=== PATIENT | male | born 2000 | race Caucasian/White ===

== ENCOUNTER → 2022-04-22 13:32 | Outpatient (BNVA) | payer BC, SELFPAY | PROVIDERS: PCP Psychiatry & Neurology Neurology; Visit Provider Psychiatry & Neurology Neurology | DX: Z13.89 Encounter for screening for other disorder (principal) ==

== ENCOUNTER 2022-05-06 17:15 | Outpatient (REF) | payer OTHER, BC, SELFPAY ==
--- NOTE | ~2022-05-06 | MR_ITS ---
EXAMINATION: MR CERVICAL SPINE WITHOUT CONTRAST CLINICAL INFORMATION: Neck pain. Bilateral wrist pain. COMPARISON: None. TECHNIQUE: MRI of the cervical spine was obtained using routine sequences without contrast. FINDINGS: There is a focal small syrinx within the cord centered at the C6-C7 level which measures up to 3 mm in transverse dimension and 10 mm craniocaudal. No additional cord signal abnormality is seen. There are is no central canal stenosis or significant foraminal narrowing. No disc protrusions visible. Very mild uncovertebral joint spurring doesn't at various levels. There is a mild rightward curvature of the cervical spine. The craniovertebral junction and imaged portions of the brain parenchyma appear normal. The vertebral artery flow-voids are normally visualized. The paraspinal soft tissues are normal. The imaged lung apices are grossly clear. MR/MR cervical spine wo con IMPRESSION: Small focal syrinx within the cord centered at the C6-C7 level. No significant disc pathology, central canal stenosis, or foraminal narrowing. Mild uncovertebral joint spurring at various levels. Mild rightward curvature of the cervical spine.
== END 2022-05-06 17:16 | disposition home or self-care (01) ==
LOC: HO.MRI 17:15
PROVIDERS: Visit Provider Internal Medicine Hypertension Specialist
DX: M54.2 Cervicalgia (principal); R20.0 Anesthesia of skin; R20.2 Paresthesia of skin; R29.2 Abnormal reflex
CPT/HCPCS: 72141

== ENCOUNTER → 2022-06-05 15:35 | Outpatient (BNVA) | payer BC, OTHER, SELFPAY | PROVIDERS: PCP Psychiatry & Neurology Neurology; Visit Provider Psychiatry & Neurology Neurology | DX: G43.119 Migraine with aura, intractable, without status migrainosus (principal); G43.109 Migraine with aura, not intractable, without status migrainosus; M54.2 Cervicalgia; R29.2 Abnormal reflex | CPT/HCPCS: 64615; J0585 ==

== ENCOUNTER → 2022-09-09 15:52 | Outpatient (BNVA) | payer OTHER, BC, SELFPAY | PROVIDERS: PCP Pediatrics; Visit Provider Psychiatry & Neurology Neurology | DX: G43.709 Chronic migraine without aura, not intractable, without status migrainosus (principal) | CPT/HCPCS: 64615; J0585 ==

== ENCOUNTER 2022-12-11 14:59 | Outpatient (AMB) | payer OTHER, SELFPAY ==
[2022-12-11 15:05] VITALS: BP 118/70; O2SAT 99
--- NOTE | 2022-12-11 15:05 | A.OFFVIS_ITS ---
Intake Vital Signs 12/11/22 15:05 Weight 145 lb 8 oz BP 118/70 Blood Pressure Location Rt brachial Position Sitting Pulse Oximetry (%) 99 Oxygen Delivery Method Room Air Intake Visit Reasons: botox-LVM Intake Note: Pt presents today for botox, states its helping. Allergies venlafaxine Allergy (Severe, Verified 12/11/22 15:08) Anaphylaxis Medication List - Last Reconciled 12/11/22 by Margo Ritchie MD bupropion HCl (Wellbutrin SR) 150 mg PO DAILY fexofenadine 180 mg PO DAILY onabotulinumtoxinA (Botox) to be injected to scalp and neck muscles by physician 200units; rizatriptan 10 mg PO Q2-4H PRN HPI HPI Comments History of Present Illness Details ? 22y/o male comes for treatment of migraines with botox. ??? Most frequent reported adverse reactions following injection of botox for chronic migraine include neck pain (9%), headache(5%), eyelid ptosis(4%), migraine(4%), muscular weakness(4%), musculuskeletal stiffness(4%), bronchitis(3 %), injection site pain (3%), musculoskeletal pain(3%), myalgia(3%), facial paresis(2%), HTN(2%) and muscle spasms(2%) were discussed in detail. ??? Botulinum toxin typeA 200units Lot no [id number] expiration Apr 2025 was diluted with 4 cc of normal saline . ??? Muscles injected- ??? Frontalis 4 sites ??? Procerus 1 site ??? Firearms Specialist- 2 sites ??? Temporalis- 8 sites ??? Massetters- 6 sites ??? Cervical paraspinals- 4 sites ??? Trapezius- 6 sites- 10 units each ??? 5 units each in 31 site ??? Total use- 185units ??? Discarded-15units [facility] Medical History Chronic migraine without aura Hyperreflexia Numbness and tingling Cervicalgia Depression Migraine with aura, intractable, without status migrainosus Surgical History S/P cubital tunnel release Family History Brother Cluster headache Speech apraxia Autism Social History Alcohol intake: current Patient Tobacco Use Status: Never used Tobacco Substance Use Type: Marijuana Physical Exam Vital Signs: Last Vital Signs BP 118/70 12/11/22 15:05 Pulse Ox 99 12/11/22 15:05 Oxygen Delivery Method Room Air 12/11/22 15:05 Const General: cooperative, healthy appearing and comfortable Nutritional Appearance: average body habitus Orientation/consciousness: patient oriented x3 Limitations: no limitations HEENT Head: Yes normal to inspection, Yes normocephalic and Yes atraumatic Face and sinus: Yes normal facial exam Neck Other: tightness or tenderness in lateral cervical muscles Neuro General: patient oriented x3, tone normal, moves all extremities and no focal motor deficits Coordination: [id number] test normal Office Procedures Botulinum toxin Injection 04932 - Migraine Procedure code (CPT) selection complete Office Meds onabotulinumtoxinA 200 unit solution for injection Performing Provider: Margo Ritchie MD Performing Location: [facility] [place] [facility] Administered by: Margo Ritchie MD on 12/11/22 15:29 Dose Route Admin Location Dispensed Lot Number Expiration Date [facility] Health Information Director 185 unit subcut 200 units [id number] 04/17/25 4681-1222-49 ALLERGAN/BOTOX Comments: see hpi Assessment & Plan Assessment & Plan (1) Chronic migraine without aura: Code(s): G43.709 - Chronic migraine without aura, not intractable, without status migrainosus Plan flexeril 5-10 mg qhs as needed Magnesium 400mg qhs Zofran 4mg as needed for nausea Rizatriptan as needed for migraines Continue AJovy 225mg q 30 days Medications trialled for migraines- Sumatriptan Naratriptan Excedrin Nurtec Prophylactic- Nurtec Propranolol Metoprolol AMitriptyline venlafaxine Verapramil Magnesium Vit B 2 Ajovy Aimovig Orders: Orders AMB Botulinum toxin Injection - Patient Supplied Today G43.709 - Chronic migraine without aura, not intractable, without status migrainosus Coding Level of Care Code Est Pt Level 1 (40931) Diagnoses Chronic migraine without aura G43.709 CPT Codes Botox Injection - Botox 3: 41855 - Migraine ([id number])
== END 2022-12-11 15:26 | disposition home or self-care (01) ==
PROVIDERS: PCP Pediatrics; Visit Provider Psychiatry & Neurology Neurology
DX: G43.709 Chronic migraine without aura, not intractable, without status migrainosus (principal)
CPT/HCPCS: 64615

== ENCOUNTER → 2022-12-11 14:59 | Outpatient (BNVA) | payer OTHER, SELFPAY | PROVIDERS: PCP Pediatrics; Visit Provider Psychiatry & Neurology Neurology | DX: G43.709 Chronic migraine without aura, not intractable, without status migrainosus (principal) | CPT/HCPCS: 64615; 99211; J0585 ==

== ENCOUNTER 2023-03-20 14:14 | Outpatient (AMB) | payer OTHER, SELFPAY ==
--- NOTE | 2023-03-20 14:25 | MHC.OFFVIS ---
Intake Vital Signs 03/20/23 14:26 Height 5 ft 10 in Weight 145 lb 6 oz BMI 20.9 BP 120/70 Blood Pressure Location Rt brachial Position Sitting Respiration 16 Pulse 72 Pulse Source Pulse Oximeter Pulse Oximetry (%) 97 Oxygen Delivery Method Room Air Intake Visit Reasons: Botox - Confirmed Intake Note: Pt presents to the office for Botox injections. Burrer Marker Axle Required: No Allergies venlafaxine Allergy (Severe, Verified 03/20/23 14:32) Anaphylaxis Medication List - Last Reconciled 03/20/23 by Margo Ritchie MD duloxetine 40 mg PO DAILY fexofenadine 180 mg PO DAILY onabotulinumtoxinA (Botox) to be injected to scalp and neck muscles by physician 200units; HPI HPI Comments History of Present Illness Details ? 22y/o male comes for treatment of migraines with botox. ??? Most frequent reported adverse reactions following injection of botox for chronic migraine include neck pain (9%), headache(5%), eyelid ptosis(4%), migraine(4%), muscular weakness(4%), musculuskeletal stiffness(4%), bronchitis(3%), injection site pain (3%), musculoskeletal pain(3%), myalgia(3%), facial paresis(2%), HTN(2%) and muscle spasms(2%) were discussed in detail. ??? Botulinum toxin typeA 200units Lot no [id number] expiration Apr 2025 was diluted with 4 cc of normal saline . How many migraine days prior to botox- 20-30days a month How long do the migraines last- 4-24 hrs Intensity of migraine-7/10 ER visits related to migraine -none Effectiveness of botox from last two treatment(s) How many migraine days since receiving treatment: 0-2/month Change? in intensity of migraine? decreased Change in frequency of migraine?decreased Change in use of acute medication for migraine?decreased Change in quality of life?improved ER visits related to migraine?none Have at least three months elapsed since last treatment (Last botox date - frequency of injections) 12/11/22 ??? Muscles injected- ??? Frontalis 4 sites- 5units each ? Personnel Security Assistant- 2 sites 5 units each ??? Temporalis- 8 sites 5units each ??? Cervical paraspinals- 4 sites 5 units each ??? Trapezius- 6 sites- 10 units each Occipitalis 10 units each Masseter 20 units each ? Total use- 200units ??? PFSH Medical History Chronic migraine without aura Hyperreflexia Numbness and tingling Cervicalgia Depression Migraine with aura, intractable, without status migrainosus Surgical History S/P cubital tunnel release Family History Brother Cluster headache Speech apraxia Autism Social History Alcohol intake: current Patient Tobacco Use Status: Never used Tobacco Substance Use Type: Marijuana Physical Exam Vital Signs: Last Vital Signs Pulse 72 03/20/23 14:26 Resp 16 03/20/23 14:26 BP 120/70 03/20/23 14:26 Pulse Ox 97 03/20/23 14:26 Oxygen Delivery Method Room Air 03/20/23 14:26 BMI result Body Mass Index 20.9 Const General: cooperative, healthy appearing and comfortable Nutritional Appearance: average body habitus Orientation/consciousness: patient oriented x3 Limitations: no limitations HEENT Head: Yes normal to inspection, Yes normocephalic and Yes atraumatic Face and sinus: Yes normal facial exam Neck Other: tightness or tenderness in lateral cervical muscles Neuro General: patient oriented x3, tone normal, moves all extremities and no focal motor deficits Coordination: [id number] test normal Office Procedures Botulinum toxin Injection 90948 - Migraine Procedure code (CPT) selection complete Office Meds onabotulinumtoxinA 200 unit solution for injection Performing Provider: Margo Ritchie MD Performing Location: [facility] [place] [facility] Administered by: Margo Ritchie MD on 03/20/23 15:02 Dose Route Admin Location Dispensed Lot Number Expiration Date [facility] Lpn Or Medical Assistant 200 unit IM 200 units [id number] 06/15/25 7284-2084-35 ALLERGAN/BOTOX Comments: see hpi Assessment & Plan Assessment & Plan (1) Chronic migraine without aura: Code(s): G43.709 - Chronic migraine without aura, not intractable, without status migrainosus Plan Patient tolerated the procedure well He will call with any side effects Orders: Orders AMB Botulinum toxin Injection Today G43.709 - Chronic migraine without aura, not intractable, without status migrainosus Coding Level of Care Code Est Pt Level 1 (39951) Diagnoses Chronic migraine without aura G43.709 CPT Codes Botox Injection - Botox 3: 19326 - Migraine ([id number])
[2023-03-20 14:26] VITALS: BP 120/70; PULSE 72; RESP 16; O2SAT 97; BMI 20.9
== END 2023-03-20 14:53 | disposition home or self-care (01) ==
PROVIDERS: Visit Provider Psychiatry & Neurology Neurology
DX: G43.709 Chronic migraine without aura, not intractable, without status migrainosus (principal)
CPT/HCPCS: 64615

== ENCOUNTER → 2023-03-20 14:14 | Outpatient (BNVA) | payer OTHER, SELFPAY | PROVIDERS: Visit Provider Psychiatry & Neurology Neurology | DX: G43.709 Chronic migraine without aura, not intractable, without status migrainosus (principal) | CPT/HCPCS: 64615; 99211; J0585 ==

== ENCOUNTER 2023-06-23 15:33 | Outpatient (AMB) | payer OTHER, SELFPAY ==
--- NOTE | 2023-06-23 15:34 | A.OFFVIS_ITS ---
Intake Vital Signs 06/23/23 15:35 Height 5 ft 10 in Weight 140 lb BMI 20.1 BP 106/66 Blood Pressure Location Rt brachial Position Sitting Respiration 17 Pulse 58 Pulse Source Pulse Oximeter Pulse Oximetry (%) 98 Oxygen Delivery Method Room Air Intake Visit Reasons: Botox-CONF Intake Note: Pt presents to the office for Botox injections. Systems Developer Required: No Allergies venlafaxine Allergy (Severe, Verified 06/23/23 15:34) Anaphylaxis Medication List - Last Reconciled 06/23/23 by Margo Ritchie MD fexofenadine 180 mg PO DAILY onabotulinumtoxinA (Botox) to be injected to scalp and neck muscles by physician 200units; vortioxetine (Trintellix) 10 mg PO DAILY HPI HPI Comments History of Present Illness Details ? 23y/o male comes for treatment of migraines with botox. ??? Most frequent reported adverse reactions following injection of botox for chronic migraine include neck pain (9%), headache(5%), eyelid ptosis(4%), migraine(4%), muscular weakness(4%), musculuskeletal stiffness(4%), bronchitis (3%), injection site pain (3%), musculoskeletal pain(3%), myalgia(3%), facial paresis(2%), HTN(2%) and muscle spasms(2%) were discussed in detail. ??? Botulinum toxin typeA 200units Lot no [id number] expiration September 2025 was diluted with 4 cc of normal saline . How many migraine days prior to botox- 20-30days a month How long do the migraines last- 4-24 hrs Intensity of migraine-7/10 ER visits related to migraine -none Effectiveness of botox from last two treatment(s) How many migraine days since receiving treatment: 0-2/month Change? in intensity of migraine? decreased Change in frequency of migraine?decreased Change in use of acute medication for migraine?decreased Change in quality of life?improved ER visits related to migraine?none Have at least three months elapsed since last treatment (Last botox date - frequency of injections) 03/20/23 ??? Muscles injected- ??? Frontalis 4 sites- 5units each ? Security And Compliance Analyst- 2 sites 5 units each ??? Temporalis- 8 sites 5units each ??? Cervical paraspinals- 4 sites 5 units each ??? Trapezius- 6 sites- 10 units each Occipitalis 10 units each Masseter 20 units each ? Total use- 200units ??? PFSH Medical History Chronic migraine without aura Hyperreflexia Numbness and tingling Cervicalgia Depression Migraine with aura, intractable, without status migrainosus Surgical History S/P cubital tunnel release Family History Brother Cluster headache Speech apraxia Autism Social History Alcohol intake: current Patient Tobacco Use Status: Never used Tobacco Substance Use Type: Marijuana Physical Exam Vital Signs: Last Vital Signs Pulse 58 06/23/23 15:35 Resp 17 06/23/23 15:35 BP 106/66 06/23/23 15:35 Pulse Ox 98 06/23/23 15:35 Oxygen Delivery Method Room Air 06/23/23 15:35 BMI result Body Mass Index 20.1 Const General: cooperative, healthy appearing and comfortable Nutritional Appearance: average body habitus Orientation/consciousness: patient oriented x3 Limitations: no limitations HEENT Head: Yes normal to inspection, Yes normocephalic and Yes atraumatic Face and sinus: Yes normal facial exam Neck Other: tightness or tenderness in lateral cervical muscles Neuro General: patient oriented x3, tone normal, moves all extremities and no focal motor deficits Coordination: hwkswu-cb-kows test normal Office Procedures Botulinum toxin Injection 82227 - Migraine Procedure code (CPT) selection complete Office Meds onabotulinumtoxinA 200 unit solution for injection Performing Provider: Margo Ritchie MD Performing Location: [facility] [place] [facility] Administered by: Margo Ritchie MD on 06/23/23 15:50 Dose Route Admin Location Dispensed Lot Number Expiration Date [facility] Aircraft Stress Analyst 200 unit IM 200 units [id number] 09/14/25 6901-2851-09 ALLERGAN/BOTOX Comments: see HPI Assessment & Plan Assessment & Plan (1) Chronic migraine without aura: Code(s): G43.709 - Chronic migraine without aura, not intractable, without status migrainosus Plan Patient tolerated the procedure well He will call with any side effects Orders: Orders AMB Botulinum toxin Injection - Patient Supplied Today G43.709 - Chronic migraine without aura, not intractable, without status migrainosus Medications: New onabotulinumtoxinA 200 units IM ONCE 1 ea 0RF Migraine G43.709 - Chronic migraine without aura, not intractable, without status migrainosus Coding Level of Care Code Est Pt Level 1 (56870) Diagnoses Chronic migraine without aura G43.709 CPT Codes Botox Injection - Botox 3: 41549 - Migraine ([id number])
[2023-06-23 15:35] VITALS: BP 106/66; PULSE 58; RESP 17; O2SAT 98; BMI 20.1
== END 2023-06-23 15:50 | disposition home or self-care (01) ==
PROVIDERS: PCP Pediatrics; Visit Provider Psychiatry & Neurology Neurology
DX: G43.709 Chronic migraine without aura, not intractable, without status migrainosus (principal)
CPT/HCPCS: 64615

== ENCOUNTER → 2023-06-23 15:33 | Outpatient (BNVA) | payer OTHER, SELFPAY | PROVIDERS: PCP Pediatrics; Visit Provider Psychiatry & Neurology Neurology | DX: G43.709 Chronic migraine without aura, not intractable, without status migrainosus (principal) | CPT/HCPCS: 64615; 99211; J0585 ==

== ENCOUNTER 2023-10-08 14:24 | Outpatient (AMB) | payer OTHER, SELFPAY ==
--- NOTE | 2023-10-08 14:26 | A.OFFVIS_ITS ---
Vital Signs 10/08/23 14:27 Height 5 ft 10 in Weight 148 lb 2 oz BMI 21.3 BP 110/68 Blood Pressure Location Rt brachial Position Sitting Respiration 16 Pulse 71 Pulse Source Pulse Oximeter Pulse Oximetry (%) 98 Oxygen Delivery Method Room Air Intake Visit Reasons: Botox - Confirmed Intake Note: Pt presents to the office for Botox injection for migraines. Journeyman Pressman Required: No Allergies venlafaxine Allergy (Severe, Verified 10/08/23 14:26) Anaphylaxis Medication List - Last Reconciled 10/08/23 by Margo Ritchie MD fexofenadine 180 mg PO DAILY onabotulinumtoxinA (Botox) to be injected to scalp and neck muscles by physician 200units; vortioxetine (Trintellix) 10 mg PO DAILY HPI Comments Details: ? 23y/o male comes for treatment of migraines with botox. ??? Most frequent reported adverse reactions following injection of botox for chronic migraine include neck pain (9%), headache(5%), eyelid ptosis(4%), migraine(4%), muscular weakness(4%), musculuskeletal stiffness(4%), bronchitis(3%), injection site pain (3%), musculoskeletal pain(3%), myalgia(3%), facial paresis(2%), HTN(2%) and muscle spasms(2%) were discussed in detail. ??? Botulinum toxin typeA 200units Lot no [id number] expiration FEB 2026 was diluted with 4 cc of normal saline . How many migraine days prior to botox- 20-30days a month How long do the migraines last- 4-24 hrs Intensity of migraine-09/23 ER visits related to migraine -none Effectiveness of botox from last two treatment(s) How many migraine days since receiving treatment: 0-2/month Change? in intensity of migraine? decreased Change in frequency of migraine?decreased Change in use of acute medication for migraine?decreased Change in quality of life?improved ER visits related to migraine?none Have at least three months elapsed since last treatment (Last botox date - frequency of injections) 07/08 ??? Muscles injected- ??? Frontalis 4 sites- 5units each ? Remarketing Rep- 2 sites 5 units each ??? Temporalis- 8 sites 5units each ??? Cervical paraspinals- 4 sites 5 units each ??? Trapezius- 6 sites- 10 units each Occipitalis 10 units each Masseter 20 units each ? Total use- 200units ??? PFSH Medical History Chronic migraine without aura Hyperreflexia Numbness and tingling Cervicalgia Depression Migraine with aura, intractable, without status migrainosus Surgical History S/P cubital tunnel release Family History Brother Cluster headache Speech apraxia Autism Social History Alcohol intake: current Patient Tobacco Use Status: Never used Tobacco Substance Use Type: Marijuana Physical Exam Vital Signs: Last Vital Signs Pulse 71 10/08/23 14:27 Resp 16 10/08/23 14:27 BP 110/68 10/08/23 14:27 Pulse Ox 98 10/08/23 14:27 Oxygen Delivery Method Room Air 10/08/23 14:27 BMI result Body Mass Index 21.3 Const General: cooperative, healthy appearing and comfortable Nutritional Appearance: average body habitus Orientation/consciousness: patient oriented x3 Limitations: no limitations HEENT Head: Yes normal to inspection, Yes normocephalic and Yes atraumatic Face and sinus: Yes normal facial exam Neck Other: tightness or tenderness in lateral cervical muscles Neuro General: patient oriented x3, tone normal, moves all extremities and no focal motor deficits Coordination: [id number]-[id number] test normal Office Procedures Botulinum toxin Injection 57629 - Migraine 04766 - Dystonia Procedure code (CPT) selection complete Office Meds onabotulinumtoxinA 200 unit solution for injection Performing Provider: Margo Ritchie MD Performing Location: [facility] [place] [facility] Administered by: Margo Ritchie MD on 10/08/23 15:01 Dose Route Admin Location Dispensed Lot Number Expiration Date [facility] Boat Carpenter Mechanic 200 unit subcut 200 units [id number] 02/14/26 9217-0120-80 ALLERGAN/BOTOX Comments: see hpi Assessment & Plan Assessment & Plan (1) Chronic migraine without aura: Code(s): G43.709 - Chronic migraine without aura, not intractable, without status migrainosus Category: Medical Plan Patient tolerated the procedure well He will call with any side effects Orders: Orders AMB Botulinum toxin Injection - Patient Supplied Today G43.709 - Chronic migraine without aura, not intractable, without status migrainosus Medications: New onabotulinumtoxinA 200 units subcut ONCE 1 ea 0RF migraine G43.709 - Chronic migraine without aura, not intractable, without status migrainosus Coding Level of Care Code Est Pt Level 1 (60264) Diagnoses Chronic migraine without aura G43.709 CPT Codes Botox Injection - Botox 3: 08696 - Migraine ([id number]) Botox Injection - Botox 4: 35109 - Dystonia ([id number])
[2023-10-08 14:27] VITALS: BP 110/68; PULSE 71; RESP 16; O2SAT 98; BMI 21.3
== END 2023-10-08 14:54 | disposition home or self-care (01) ==
PROVIDERS: PCP Pediatrics; Visit Provider Psychiatry & Neurology Neurology
DX: G43.709 Chronic migraine without aura, not intractable, without status migrainosus (principal)
CPT/HCPCS: 64615

== ENCOUNTER → 2023-10-08 14:24 | Outpatient (BNVA) | payer OTHER, SELFPAY | PROVIDERS: PCP Pediatrics; Visit Provider Psychiatry & Neurology Neurology | DX: G43.709 Chronic migraine without aura, not intractable, without status migrainosus (principal) | CPT/HCPCS: 64615; 99211; J0585 ==

== ENCOUNTER 2024-01-08 14:05 | Outpatient (AMB) | payer OTHER, SELFPAY ==
--- NOTE | 2024-01-08 14:11 | MHC.OFFVIS ---
Vital Signs 01/08/24 14:15 Height 5 ft 10 in Weight 154 lb 6 oz BMI 22.1 BP 104/60 Blood Pressure Location Rt brachial Position Sitting Pulse 62 Pulse Source Pulse Oximeter Pulse Oximetry (%) 97 Oxygen Delivery Method Room Air Intake Visit Reasons: Botox Intake Note: Patient presents in office for Botox injections for chronic migraine. Patient reports having breakthrough migraines. Md Allergy Immunology Required: No Accompanied by: Self / Same As Patient Allergies venlafaxine Allergy (Severe, Verified 01/08/24 14:16) Anaphylaxis Medication List - Last Reconciled 01/08/24 by Margo Ritchie MD fexofenadine 180 mg PO DAILY onabotulinumtoxinA (Botox) to be injected to scalp and neck muscles by physician 200units; ondansetron HCl 4 mg PO Q8H PRN ubrogepant (Ubrelvy) 100 mg PO .PRN PRN HPI Comments Details: ? 23y/o male comes for treatment of migraines with botox. ??? Most frequent reported adverse reactions following injection of botox for chronic migraine include neck pain (9%), headache(5%), eyelid ptosis(4%), migraine(4%), muscular weakness(4%), musculuskeletal stiffness(4%), bronchitis(3%), injection site pain (3%), musculoskeletal pain(3%), myalgia(3%), facial paresis(2%), HTN(2%) and muscle spasms(2%) were discussed in detail. ??? Botulinum toxin typeA 200units Lot no [id number] expiration May 2026 was diluted with 4 cc of normal saline . How many migraine days prior to botox- 20-30days a month How long do the migraines last- 4-24 hrs Intensity of migraine-09/23 ER visits related to migraine -none Effectiveness of botox from last two treatment(s) How many migraine days since receiving treatment: 0-2/month Change? in intensity of migraine? decreased Change in frequency of migraine?decreased Change in use of acute medication for migraine?decreased Change in quality of life?improved ER visits related to migraine?none Have at least three months elapsed since last treatment (Last botox date - frequency of injections) 07/08 ??? Muscles injected- ??? Frontalis 4 sites- 5units each ? Medical Practice Assistant- 2 sites 5 units each ??? Temporalis- 8 sites 5units each ??? Cervical paraspinals- 4 sites 5 units each ??? Trapezius- 6 sites- 10 units each Occipitalis 10 units each Masseter 20 units each ? Total use- 200units ??? PFSH Medical History Chronic migraine without aura Hyperreflexia Numbness and tingling Cervicalgia Depression Migraine with aura, intractable, without status migrainosus Surgical History S/P cubital tunnel release Family History Brother Cluster headache Speech apraxia Autism Social History Alcohol intake: current Patient Tobacco Use Status: Never used Tobacco Substance Use Type: Marijuana Physical Exam Vital Signs: Last Vital Signs Pulse 62 01/08/24 14:15 BP 104/60 01/08/24 14:15 Pulse Ox 97 01/08/24 14:15 Oxygen Delivery Method Room Air 01/08/24 14:15 BMI result Body Mass Index 22.1 Const General: cooperative, healthy appearing and comfortable Nutritional Appearance: average body habitus Orientation/consciousness: patient oriented x3 Limitations: no limitations HEENT Head: Yes normal to inspection, Yes normocephalic and Yes atraumatic Face and sinus: Yes normal facial exam Neck Other: tightness or tenderness in lateral cervical muscles Neuro General: patient oriented x3, tone normal, moves all extremities and no focal motor deficits Coordination: [id number] test normal Office Procedures Botulinum toxin Injection 80147 - Migraine Procedure code (CPT) selection complete Office Meds onabotulinumtoxinA 200 unit solution for injection Performing Provider: Margo Ritchie MD [place] [facility] [place] [facility] Administered by: Margo Ritchie MD on 01/08/24 15:05 Dose Route Admin Location Dispensed Lot Number Expiration Date [facility] Radio Repair Teacher 200 unit subcut 200 units [id number] 05/15/26 8433-4382-28 ALLERGAN/BOTOX Comments: see HPI Assessment & Plan Assessment & Plan (1) Chronic migraine without aura: Code(s): G43.709 - Chronic migraine without aura, not intractable, without status migrainosus Category: Medical Qualifiers: Status migrainosus presence: without status migrainosus Intractability: intractable Qualified Code(s): G43.719 - Chronic migraine without aura, intractable, without status migrainosus Plan Patient tolerated the procedure well He will call with any side effects He could not tolerate triptans I will trial him on ubrelvy 100mg as needed for breakthrough migraines Orders: Orders AMB Botulinum toxin Injection - Patient Supplied Today G43.719 - Chronic migraine without aura, intractable, without status migrainosus Medications: New ubrogepant (Ubrelvy) 1 tab at onset of migraines can repeat in 2 hrs if needed- maximum 2/day 100 mg PO .PRN PRN 14 tabs 6RF migraine ondansetron HCl 4 mg PO Q8H PRN 30 tabs 0RF nausea and vomiting onabotulinumtoxinA 200 units subcut ONCE 1 ea 0RF migraines G43.719 - Chronic migraine without aura, intractable, without status migrainosus Coding Level of Care Code Est Pt Level 1 (93353) Diagnoses Intractable chronic migraine without aura and without status migrainosus G43.719 Status migrainosus presence: without status migrainosus Intractability: intractable CPT Codes Botox Injection - Botox 3: 73019 - Migraine ([id number])
[2024-01-08 14:15] VITALS: BP 104/60; PULSE 62; O2SAT 97; BMI 22.1
== END 2024-01-08 14:46 | disposition home or self-care (01) ==
PROVIDERS: PCP Pediatrics; Visit Provider Psychiatry & Neurology Neurology
DX: G43.719 Chronic migraine without aura, intractable, without status migrainosus (principal)
CPT/HCPCS: 64615

== ENCOUNTER → 2024-01-08 14:05 | Outpatient (BNVA) | payer OTHER, SELFPAY | PROVIDERS: PCP Pediatrics; Visit Provider Psychiatry & Neurology Neurology | DX: G43.719 Chronic migraine without aura, intractable, without status migrainosus (principal) | CPT/HCPCS: 64615; 99211; J0585 ==

== ENCOUNTER 2024-05-04 15:33 | Outpatient (AMB) | payer OTHER, SELFPAY ==
[2024-05-04 15:41] VITALS: BP 110/72; BMI 22.8
--- NOTE | 2024-05-04 15:41 | MHC.OFFVIS ---
Vital Signs 05/04/24 15:41 Height 5 ft 10 in Weight 159 lb BMI 22.8 BP 110/72 Blood Pressure Location Rt brachial Position Sitting Intake Visit Reasons: Botox Intake Note: patient here for botox injection. Patient supplied Allergies venlafaxine Allergy (Severe, Verified 05/04/24 15:42) Anaphylaxis Medication List - Last Reconciled 05/05/24 by Margo Ritchie MD fexofenadine 180 mg PO DAILY onabotulinumtoxinA (Botox) to be injected to scalp and neck muscles by physician 200units; ondansetron HCl 4 mg PO Q8H PRN ubrogepant (Ubrelvy) 100 mg PO .PRN PRN HPI Comments Details: ? 24y/o male comes for treatment of migraines with botox. ??? Most frequent reported adverse reactions following injection of botox for chronic migraine include neck pain (9%), headache(5%), eyelid ptosis(4%), migraine(4%), muscular weakness(4%), musculuskeletal stiffness(4%), bronchitis(3%), injection site pain (3%), musculoskeletal pain(3%), myalgia(3%), facial paresis(2%), HTN(2%) and muscle spasms(2%) were discussed in detail. ??? Botulinum toxin typeA 200units Lot no [id number] expiration June 2026 was diluted with 4 cc of normal saline . How many migraine days prior to botox- 20-30days a month How long do the migraines last- 4-24 hrs Intensity of migraine-7/10 ER visits related to migraine -none Effectiveness of botox from last two treatment(s) How many migraine days since receiving treatment: 0-2/month Change? in intensity of migraine? decreased Change in frequency of migraine?decreased Change in use of acute medication for migraine?decreased Change in quality of life?improved ER visits related to migraine?none Have at least three months elapsed since last treatment (Last botox date - frequency of injections) 3 mths ??? Muscles injected- ??? Frontalis 4 sites- 5units each ? Manager Med Surg- 2 sites 5 units each ??? Temporalis- 8 sites 5units each ??? Cervical paraspinals- 4 sites 5 units each ??? Trapezius- 6 sites- 10 units each Occipitalis 10 units each Masseter 20 units each ? Total use- 200units ??? PFSH Medical History Chronic migraine without aura Hyperreflexia Numbness and tingling Cervicalgia Depression Migraine with aura, intractable, without status migrainosus Surgical History S/P cubital tunnel release Family History Brother Cluster headache Speech apraxia Autism Social History Alcohol intake: current Patient Tobacco Use Status: Never used Tobacco Substance Use Type: Marijuana Physical Exam Vital Signs: Last Vital Signs BP 110/72 05/04/24 15:41 BMI result Body Mass Index 22.8 Const General: cooperative, healthy appearing and comfortable Nutritional Appearance: average body habitus Orientation/consciousness: patient oriented x3 Limitations: no limitations HEENT Head: Yes normal to inspection, Yes normocephalic and Yes atraumatic Face and sinus: Yes normal facial exam Neck Other: tightness or tenderness in lateral cervical muscles Neuro General: patient oriented x3, tone normal, moves all extremities and no focal motor deficits Coordination: [id number] test normal Office Procedures Botulinum toxin Injection 08981 - Migraine Procedure code (CPT) selection complete Office Meds onabotulinumtoxinA 200 unit solution for injection Performing Provider: Margo Ritchie MD Performing Location: [facility] [place] [facility] Administered by: Margo Ritchie MD on 05/05/24 08:02 Dose Route Admin Location Dispensed Lot Number Expiration Date [facility] Patient Scheduler 185 unit subcut 200 units [id number] ALLERGAN/BOTOX Comments: see hpi Assessment & Plan Assessment & Plan (1) Chronic migraine without aura: Code(s): G43.709 - Chronic migraine without aura, not intractable, without status migrainosus Category: Medical Qualifiers: Status migrainosus presence: without status migrainosus Intractability: intractable Qualified Code(s): G43.719 - Chronic migraine without aura, intractable, without status migrainosus Plan Patient tolerated the procedure well He will call with any side effects He could not tolerate triptans Continue ubrelvy 100mg as needed for breakthrough migraines Orders: Orders AMB Botulinum toxin Injection - Patient Supplied N/C 05/04/24 G43.719 - Chronic migraine without aura, intractable, without status migrainosus Medications: New onabotulinumtoxinA 200 units subcut ONCE 1 ea 0RF migraine G43.719 - Chronic migraine without aura, intractable, without status migrainosus Refilled ondansetron HCl 4 mg PO Q8H PRN 30 tabs 0RF nausea and vomiting ubrogepant (Ubrelvy) 1 tab at onset of migraines can repeat in 2 hrs if needed- maximum 2/day 100 mg PO .PRN PRN 14 tabs 6RF migraine Coding Level of Care Code Est Pt Level 1 (23269) Diagnoses Intractable chronic migraine without aura and without status migrainosus G43.719 Status migrainosus presence: without status migrainosus Intractability: intractable CPT Codes Botox Injection - Botox 3: 27564 - Migraine ([id number])
--- OUTSIDE RECORDS SUMMARY | 2024-05-04 16:25 | XMS_ITS | Clinical Summary ---
Author Organization [facility] Address [address] [place] [address] Care Team Providers Care Manager Department Name Role Phone Pooja Newell MD Primary Care Provider [phone] Allergies Active Allergy Reactions Criticality Noted Date Comments Apple 05/07/2022 Mouth swelling and itching Pollen Extracts 08/03/2018 Venlafaxine Anaphylaxis,Hives,It chin g,Shortness of breath,Swelling High 03/26/2022 Medications * This document contains information received from the source organization and may not represent a complete record from that organization. DULoxetine (CYMBALTA) 20 mg capsule 3 Active Botox 200 unit recon soln 3 Active amoxicillin-pot clavulanate (Augmentin) 875-125 mg per tabletIndication s:Acute non-recurrent frontal sinusitis Take 1 tablet by mouth in the morning and 1 tablet before bedtime. 20 tablet 3 Active Additional Information Patient not taking.Reported on 04/02/2023 dextromethorphan -guaifenesin (Mucinex DM) 30-600 mg tablet extended release 12 hrIndications:Ac navajo non-recurrent frontal sinusitis Take 30-600 mg by mouth 2 (two) times a day as needed (nasal congestion). 28 each 3 Active Additional Information Patient not taking.Reported on 04/08/2023 meloxicam (MOBIC) 15 mg tablet 1 po every day PRN pain with food 60 tablet 1 3 Active Additional Information Patient not taking.Reported on 04/02/2023 diclofenac sodium (VOLTAREN) 1 % gel Apply topically 4 (four) times a day. Apply to hands as directed PRN pain 1 each 1 3 Active Additional Information Patient not taking.Reported on 04/08/2023 Trintellix 10 mg tablet Take 10 mg by mouth in the morning. 4 Active Active Problems Problem Noted Date Diagnosed Date Left ear pain 06/26/2023 Assessment & Plan (06/26/2023 1:33 PM EDT): Etiology for of his left ear pain is uncertain. He has some other features which are suggestive of a postviral syndrome. I have asked him to follow-up with ENT. He should also follow-up with a PCP in the outpatient [facility] to evaluate his abdominal symptoms. CBC LFTs HIV. Do previous labs as ordered for infectious mononucleosis. Ear pain, left 04/02/2023 Assessment & Plan (06/26/2023 1:20 PM EDT): There is no evidence of otitis media or otitis externa on exam. His symptoms are likely secondary to upper airway congestion. Question postviral syndrome. Recommend Sudafed as needed. Nasal corticosteroids. No indication for antibiotics at this time. I will see him in 3 days. He will follow-up in the ER for severe symptoms over the weekend. Screening test for infectious mononucleosis, HIV RNA. Sore throat 04/02/2023 Left otitis media with effusion 04/02/2023 Seasonal allergic rhinitis due to pollen 023 Postnasal drip 12/31/2022 Sinus pressure 12/31/2022 Chronic sinusitis 12/31/2022 Gastroesophageal reflux dise ase with esophagitis without hemorrhage 03/27/2022 Overview (12/26/2022): Last Assessment & Plan: Add nizatadine, based on insurance formulary, for symptomatic GERD avoid triggers. Reassess if worsening or no better. 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 Migraines 03/17/2018 Family History Medical History Relation Comments Intellectual Disability Brother Cancer Maternal Grandfather Relation Status Comments Brother Father Alive Maternal Grandfather Mother Alive Social History Tobacco Use Types Packs/Day Years Used Date Smoking Tobacco: Never Smokeless Tobacco: Never Tobacco Cessation:Counseling Given: Not Answered Alcohol Use Standard Drinks/Week Comments Yes 1 (1 standard drink = 0.6 oz pur e alcohol) 2-6 per month recently PHQ-2 Answer Date Recorded PHQ-2 Score 2 12/26/2022 Hunger Vital Sign Answer Date Recorded Within the past 12 months, y ou worried that your food would run out before you got the money to buy more. Never true 12/26/19 Ran Out of Food in the Last Year Not on file 12/25/2022 PRAPARE - Transportation Answer Date Re corded In the past 12 months, has l ack of transportation kept you from medical appointments or from getting medications? No 12/25/2022 Lack of Transportation (Non-Medical) Not on file 12/25/2022 Sex and Gender Information Value Date Recorded Sex Assigned at Not on file Legal Sex Male 12:12 PM EDT Gender Identity Not on file Sexual Orientation Straight 05/27/2023 6: 17 PM EDT Last Filed Vital Signs Vital Sign Reading Time Taken Comments Blood Pressure 121/71 04/02/2023 1:07 PM EST Pulse 82 04/02/2023 1:07 PM EST Temperature 36.6 ??C (97.9 ??F) 04/02/2023 1:07 PM ES T Respiratory Rate 16 04/02/2023 1:07 PM EST Oxygen Saturation 97% 04/02/2023 1:07 PM EST Inhaled Oxygen Concentration - - Weight 65.8 kg (145 lb) 04/08/2023 8:16 AM EST Height 175.3 cm (5' 9 ) 04/08/2023 8:16 AM EST Body Mass Index 21.41 04/08/2023 8:16 AM EST Plan of Treatment Health Maintenance Due Date Last Done Comments HPV Vaccines (1 - Male 3-dos e series) 2014 DTaP,Tdap,and Td Vaccines (1 - Tdap) 2017 Hepatitis C Screening 2017 Hepatitis B Vaccines (1 of 3 - 19+ 3-dose series) 2018 COVID-19 Vaccine (1 - 2023-2 5 season) 2023 Influenza Vaccine (#1) 2023 Zoster Vaccines (1 of 2) 2049 HIV Screening Completed 12/23/2022 Hepatitis A Vaccines Aged Out No long er eligible based on patient's age to complete this topic MMR Vaccines Aged Out No longer eligi ble based on patient's age to complete this topic Meningococcal Vaccine Aged Out No diego martha eligible based on patient's age to complete this topic Pneumococcal Vaccine: Pediat rics (0 to 5 Years) and At-Risk Patients (6 to 64 Years) Aged Out No longer eligi ble based on patient's age to complete this topic Procedures Procedure Name Priority Date/Time Associated Diagnosis Comments HIV COMBO ANTIGEN/ANTIBODY Routine 12/23/2022 9:00 AM EDT Viral upper respiratory tract infection Recurrent URI (upper respiratory infection) from Last 3 Months or Most Recently Relevant to Health Maintenance Results * HIV combo antigen/antibody (12/23/2022 9:00 AM EDT) HIV Combo AB/AG Negative Negative 12/23/2022 10:00 AM EDT [facility] Blood Venous blood specimen / Unknown Venipuncture / Unknown 12/23/2022 9:00 AM EDT 12/23/2022 9:00 AM EDT Narrative [facility] - 12/23/2022 10:00 AM EDT This test is a 4th generation HIV Antigen-Antibody Combination assay, using a chemiluminescent microparticle immunoassay, for the simultaneous qualitative detection of human immuno- deficiency virus (HIV) p24 antigen and antibodies to HIV type 1 (HIV-1) and/or HIV type 2 (HIV-2) in human serum or plasma. The [employer] HIV Ag/Ab Combo assay is intended to be used as an aid in the diagnosis of HIV-1 and/or HIV-2 infection, including acute or primary HIV-1 infection. Initially-positive tests are repeated in duplicate. Repeat-positive tests will be confirmed for HIV by a HIV-1/HIV-2 rapid supplemental/ differentiation antibody assay. This testing algorithm is in line with the current CDC recommendations. us Joaquín Hinojosa MD LAB BLOOD ORDERABLES NO STAT F inal Result [facility] [address] [place] [address], [place] [phone] from Last 3 Months or Most Recently Relevant to Health Maintenance [place] [address] [address] [place] [address] MEDICAID HUSKY D Care Teams Manager Department Relationship Specialty Start Date End Date Pooja Newell MD [address] [place] [address] PCP - General Internal Medicine 12/26/22
--- OUTSIDE RECORDS SUMMARY | 2024-05-04 16:26 | XMS_ITS ---
Author Name [facility] Organization Unknown Results Test Name/Text Value Interpretation Date Range Source SARS-COV-2 PCR (CEPNegotiantID) Negative Normal [id number] [facility] HIV 1+2 AB + HIV1 P24 AG (PRESENCE) IN SERUM BY IMMUNOASSAY Negative Normal - [facility] HIV-1 NAAT COPIES NOT DETECTED Not Detected Normal - [facility] HIV-1 NAAT, LOG NOT DETECTED Not Detected Normal - [facility] IMMUNOGLOBULIN M 104mg/dL Normal 22 - 293 [facility] IMMUNOGLOBULIN G 1099mg/dL Normal 624 - 1766 [facility] IMMUNOGLOBULIN A 148mg/dL Normal 82 - 460 [facility] ALT (SGPT) 14U/L Normal 8 - 39 [facility] PROTEIN TOTAL 7.3g/dL Normal 6.2 - 8.1 [facility] AST (SGOT) 22U/L Normal 17 - 35 [facility] BILIRUBIN, TOTAL 1mg/dL Normal 0.1 - 1.2 [facility] ALKALINE PHOSPHATASE 68U/L Normal 39 - 1 13 [facility] BILIRUBIN, DIRECT 0.3mg/dL Normal 0 - 0.5 [facility] ALBUMIN, AUTOMATED 4.9g/dL Normal 3.8 - 5. 3 [facility] RBC DISTRIBUTION WIDTH 12% Normal 11.6 - 14.8 [facility] AUTO NRBC % 0% Normal 0 - [address] [facility] [address]. 4.610*3/uL Normal 1. 4 - 6.[address] [facility] [address] 0.710*3/uL Normal 0.2 - 0.8 [facility] MCHC 35.2g/dL Normal 32 - 36 [facility] MCH 29.6pg Normal 26 - 34 [facility] IMMATURE GRANULOCYTE % 0.3% Normal [id number] 0 - 0.6 [facility] EOSINOPHIL % 1.9% Normal [id number] 0 - [address] [facility] [address] 0.110*3/uL Normal [id number] 0 - 0 .2 [facility] MCV 84fL Normal [id number] 80 - 100 [facility] PLATELET COUNT 42794*3/uL Normal [id number] 150 - 440 C [facility] BASOPHILS % 0.7% Normal 0 - [address] [facility] [address]. 1.710*3/uL Normal [id number] 0. 7 - 4.[address] [facility] [address] 0.110*3/uL Normal [id number] 0 - 0.3 [facility] HEMATOCRIT 42.6% Normal 40 - 52 [facility] WHITE CELL COUNT 7.210*3/uL Normal [id number] 3.8 - 10. 6 [facility] RED CELL COUNT 5.0710*6/???L Normal [id number] 4.4 - 5. 9 [facility] MONOCYTE % 9.7% Normal 4 - 12 [facility] NEUTROPHIL % 63.9% Normal 40 - 70 [facility] HEMOGLOBIN 15g/dL Normal 13 - 18 [facility] LYMPHOCYTE % 23.5% Normal 20 - 50 [facility] HETEROPHILE ANTIBODIES Negative Normal - [facility] History of Medication Use Medication Directions Dispensed Refills Start Date End Date Stat guaiFENesin ER (Mucinex) 600 mg 12 hr tablet Take 1 tablet (600 mg total) by mouth in the morning and 1 tablet (600 mg total) before bedtime. 12/31/2022 01/31/2023 active DULoxetine (CYMBALTA) 20 mg capsule 12/25/2022 active Problems Problem Status Onset Date Problem Type Date of Resoluti on Source Sore throat active 2023-04-02 ProblemAct [facility] Postnasal drip active 2022-12-31 ProblemAct [facility] Left ear pain active 2023-06-26 ProblemAct [facility] Sinus pressure active 2022-12-31 ProblemAct [facility] Gastroesophageal reflux disease with esophagitis without hemorrhage active 2022-03-27 ProblemAct [facility] Seasonal allergic rhinitis due to pollen active 2022-12-31 ProblemAct [facility] Chronic sinusitis active 2022-12-31 ProblemAct [facility] 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 ProblemAct [facility] Left otitis media with effusion active 2023-04-02 ProblemAct [facility] Migraines active 2018-03-17 ProblemAct [facility]
--- OUTSIDE RECORDS SUMMARY | 2024-05-04 16:26 | XMS_ITS | Encounter Summary ---
Author Organization [facility] Address [address] [place] [address] Care Team Providers Care Soils Engineer Name Role Phone Pooja Newell MD Primary Care Provider [phone] Reason for Referral * Physical Therapy (Routine) - Authorized Specialty Diagnoses / Procedures Referred By Bob dudley Referred To Contact Physical Therapy Diagnoses Cervical pain Other migraine without status migrainosus, not intractable Janice Nguyen DO [address] [place] [address] [address] Phone: tel: fax: [facility] Department of Physical Therapy [address] [place] [address] Phone: tel: fax: Referral ID Status Reason Start Date Expiration Date Visits Requested Visits Authorized [id number] Authorized Specialty Services Required 05/29/2023 07/02/2024 20 20 Encounter Details Date Type Department Care Team (Late st Contact Info) Description 05/29/2023 Orders Only [facility] Department of Internal Medicine [address] [place] [address] Pooja Newell MD [address] [place] [address] Cervical pain (Primary Dx); Other migraine without status migrainosus, not intractable Social History Tobacco Use Types Packs/Day Years Used Date Smoking Tobacco: Never Smokeless Tobacco: Never Alcohol Use Standard Drinks/Week Comments Yes 1 [...] Orientation Straight 05/27/2023 6: 17 PM EDT documented as of this encounter Plan of Treatment Scheduled Referrals Name Type Priority Associated Diagnoses Orde r Schedule Ambulatory referral to Physical Therapy Outpatient Referral Routine Cervical pain Other migraine without status migrainosus, not intractable Ordered: 05/29/2023 documented as of this encounter Visit Diagnoses Diagnosis Cervical pain- Primary Cervicalgia Other migraine without status migrainosus, not intractable documented in this encounter Additional Health Concerns Assessment Noted Time PHQ-9 Depression Total Score: 2 12/27/19 2:36 PM EDT documented as of this encounter Care Teams Soils Engineer Relationship Specialty Start Date End Date Pooja Newell MD [address] [place] [address] PCP - General Internal Medicine 12/26/22 documented as of this encounter
--- OUTSIDE RECORDS SUMMARY | 2024-05-04 16:26 | XMS_ITS | Clinical Summary ---
Author Organization [address] Address [address] [place] [id number] Phone Care Team Providers Care Favor Maker Name Role Phone Unavailable Primary Care Provider Unavailabl e Allergies Active Allergy Reactions Criticality Noted Date Comments Seasonal Allergies 08/03/2018 Medications cetirizine (ZYRTEC) 10 MG tablet Take 10 mg by mouth daily Active melatonin 1 mg Tab Take 1 tablet by mouth daily Active ibuprofen (ADVIL,MOTRIN) 200 MG tablet Take 200 mg by mouth every 6 (six) hours as needed Active HYDROcodone-jose taminophen (NORCO) 5-325 mg per tablet Take 1-2 tabs by mouth every 4-6 hours as needed for pain. 20 tablet 9 Active Additional Information Patient not taking.Reported on 01/01/2021 naratriptan (AMERGE) 2.5 mg tablet Take 2.5 mg by mouth. 1 Active propranoloL (INDERAL) 40 mg Immediate Release tablet Take 20 mg by mouth. 1 Active Active Problems Problem Noted Date Diagnosed Date 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 Precordial pain 03/12/2017 Abnormal EKG 03/12/2017 Shortness of breath 03/12/2017 Resolved Problems Problem Noted Date Diagnosed Date Resolved Date Cubital tunnel syndrome, bilateral 10/18/2016 03/12/2017 Social History Tobacco Use Types Packs/Day Years Used Date Smoking Tobacco: Never Smokeless Tobacco: Never Alcohol Use Standard Drinks/Week Comments Yes 0 (1 standard drink = 0.6 oz pur e alcohol) social Sex and Gender Information Value Date Recorded Sex Assigned at Not on file Legal Sex Male 2:41 PM EDT Gender Identity Not on file Sexual Orientation Not on file Last Filed Vital Signs Vital Sign Reading Time Taken Comments Blood Pressure 112/80 10/10/2020 5:26 PM EDT Pulse 50 01/01/2021 4:45 PM EDT Temperature 37 ??C (98.6 ??F) 08/05/2018 4:00 PM EDT Respiratory Rate 16 01/01/2021 4:45 PM EDT Oxygen Saturation 96% 01/01/2021 4:45 PM EDT Inhaled Oxygen Concentration - - Weight 60 kg (132 lb 3.2 oz) 01/01/2021 4:45 PM EDT Height 177.8 cm (5' 10 ) 08/05/2018 9:30 AM EDT Body Mass Index 18.97 08/05/2018 9:30 AM EDT Plan of Treatment Health Maintenance Due Date Last Done Comments MMR Vaccines (1 of 1 - Stand moon series) 2000 DTaP/TDaP Vaccines (1 - Tdap) 2006 HIV screening 2012 Varicella Vaccines (1 of 2 - 13+ 2-dose series) 2012 HPV vaccine series (1 - Male 3-dose series) 2014 Hepatitis C screening 2017 Hepatitis B vaccine series ( 1 of 3 - 19+ 3-dose series) 2018 Tetanus adult (Td q 10,TDAP once) 2019 Influenza vaccine 10/16/2023 Covid-19 vaccine series (1 - 2023-25 season) 2023 RSV Discussion (1 - 1-dose 7 5+ series) 2074 HIB Vaccines Aged Out No longer eligi ble based on patient's age to complete this topic Hepatitis A Vaccines Aged Out No long er eligible based on patient's age to complete this topic IPV Vaccines Aged Out No longer eligi ble based on patient's age to complete this topic Meningococcal Vaccine Aged Out No diego martha eligible based on patient's age to complete this topic Pneumococcal Vaccine (2 - 49 years) Aged Out No longer eligible based on patient's age to complete this topic Rotavirus Vaccines Aged Out No longer eligible based on patient's age to complete this topic Insurance MEDICAID [facility] MEDICAID [facility] [address] [place] [address] [facility]
== END 2024-05-04 16:06 | disposition home or self-care (01) ==
PROVIDERS: PCP Pediatrics; Visit Provider Psychiatry & Neurology Neurology
DX: G43.719 Chronic migraine without aura, intractable, without status migrainosus (principal)
CPT/HCPCS: 64615

== ENCOUNTER → 2024-05-04 15:33 | Outpatient (BNVA) | payer OTHER, SELFPAY | PROVIDERS: PCP Pediatrics; Visit Provider Psychiatry & Neurology Neurology | DX: G43.719 Chronic migraine without aura, intractable, without status migrainosus (principal) | CPT/HCPCS: 64615; 99211; J0585 ==

== ENCOUNTER 2024-08-24 15:48 | Outpatient (AMB) | payer BC, SELFPAY ==
--- NOTE | 2024-08-24 15:50 | A.OFFVIS_ITS ---
Vital Signs 08/24/24 15:53 Height 5 ft 10 in Weight 153 lb BMI 22.0 Intake Visit Reasons: Botox Intake Note: Patient presents for botox injection. practice supplied Allergies venlafaxine Allergy (Severe, Verified 08/24/24 15:50) Anaphylaxis Medication List - Last Reconciled 08/24/24 by Margo Ritchie MD fexofenadine 180 mg PO DAILY onabotulinumtoxinA (Botox) to be injected to scalp and neck muscles by physician 200units; ondansetron HCl 4 mg PO Q8H PRN ubrogepant (Ubrelvy) 100 mg PO .PRN PRN HPI Comments Details: ? 24y/o male comes for treatment of migraines with botox. ??? Most frequent reported adverse reactions following injection of botox for chronic migraine include neck pain (9%), headache(5%), eyelid ptosis(4%), migraine(4%), muscular weakness(4%), musculuskeletal stiffness(4%), bronchitis(3%), injection site pain (3%), musculoskeletal pain(3%), myalgia(3%), facial paresis(2%), HTN(2%) and muscle spasms(2%) were discussed in detail. ??? Botulinum toxin typeA 200units Lot no [id number] expiration Dec 2026 was diluted with 4 cc of normal saline . How many migraine days prior to botox- 20-30days a month How long do the migraines last- 4-24 hrs Intensity of migraine-7/10 ER visits related to migraine -none Effectiveness of botox from last two treatment How many migraine days since receiving treatment: 0-2/month Change? in intensity of migraine? decreased Change in frequency of migraine?decreased Change in use of acute medication for migraine?decreased Change in quality of life?improved ER visits related to migraine?none Have at least three months elapsed since last treatment (Last botox date - frequency of injections) 3 mths ??? Muscles injected- ??? Frontalis 4 sites- 5units each ? Supervisor Lead Refinery- 2 sites 5 units each ??? Temporalis- 8 sites 5units each ??? Cervical paraspinals- 4 sites 5 units each ??? Trapezius- 6 sites- 10 units each Occipitalis 10 units each Masseter 20 units each ? Total use- 200units ??? PFSH Medical History Chronic migraine without aura Hyperreflexia Numbness and tingling Cervicalgia Depression Migraine with aura, intractable, without status migrainosus Surgical History S/P cubital tunnel release Family History Brother Cluster headache Speech apraxia Autism Social History Alcohol intake: current Patient Tobacco Use Status: Never used Tobacco Substance Use Type: Marijuana Physical Exam Vital Signs: BMI result Body Mass Index 22.0 Const General: cooperative, healthy appearing and comfortable Nutritional Appearance: average body habitus Orientation/consciousness: patient oriented x3 Limitations: no limitations HEENT Head: Yes normal to inspection, Yes normocephalic and Yes atraumatic Face and sinus: Yes normal facial exam Neck Other: tightness or tenderness in lateral cervical muscles Neuro General: patient oriented x3, tone normal, moves all extremities and no focal motor deficits Coordination: [id number] test normal Office Procedures Botulinum toxin Injection 91969 - Migraine Procedure code (CPT) selection complete Office Meds onabotulinumtoxinA 200 unit solution for injection Performing Provider: Margo Ritchie MD Performing Location: [facility] [place] [facility] Administered by: Margo Ritchie MD on 08/24/24 16:07 Dose Route Admin Location Dispensed Lot Number Expiration Date [facility] Home Care Assistant 200 unit subcut 200 units [id number] ALLERGAN/BOTOX Comments: see hpi Assessment & Plan Assessment & Plan (1) Chronic migraine without aura: Code(s): G43.709 - Chronic migraine without aura, not intractable, without status migrainosus Category: Medical Qualifiers: Status migrainosus presence: without status migrainosus Intractability: intractable Qualified Code(s): G43.719 - Chronic migraine without aura, intractable, without status migrainosus Plan Patient tolerated the procedure well He will call with any side effects He could not tolerate triptans Continue ubrelvy 100mg as needed for breakthrough migraines Orders: Orders AMB Botulinum toxin Injection Today G43.719 - Chronic migraine without aura, i ntractable, without status migrainosus Medications: New onabotulinumtoxinA 200 units subcut ONCE 1 ea 0RF migraine G43.719 - Chronic migraine without aura, intractable, without status migrainosus Coding Level of Care Code Est Pt Level 1 (68732) Diagnoses Intractable chronic migraine without aura and without status migrainosus G43.719 Status migrainosus presence: without status migrainosus Intractability: intractable CPT Codes Botox Injection - Botox 3: 34249 - Migraine ([id number])
[2024-08-24 15:53] VITALS: BMI 22.0
--- OUTSIDE RECORDS SUMMARY | 2024-08-24 18:47 | XMS_ITS | Clinical Summary ---
Author Organization [facility] Address [address] [place] [address] Care Team Providers Care Vessel Welder Name Role Phone Pooja Newell MD Primary Care Provider [phone] Allergies Active Allergy Reactions Criticality Noted Date [...] 30-600 mg tablet extended release 12 hrIndications:Ac kletsel dehe wintun non-recurrent frontal sinusitis Take 30-600 mg by [...] Screening test for infectious mononucleosis, HIV RNA. Left otitis media with effusion 04/02/2023 Seasonal allergic rhinitis due to pollen 023 Postnasal drip 12/31/2022 Sinus pressure 12/31/2022 Gastroesophageal reflux dise ase with esophagitis without hemorrhage 03/27/2022 Overview (12/26/2022): Last Assessment & Plan: Add nizatadine, based on insurance formulary, for symptomatic GERD avoid triggers. Reassess if worsening or no better. 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 Never true 12/26/19 23 Ran Out of Food in the Last [...] - 2023-2 5 season) 2023 Influenza Vaccine (Season Ended) 2024 Zoster Vaccines (1 of 2) 2049 HIV [...] 5 Years) and At-Risk Patients (6 to 49 Years) Aged Out No longer eligi ble [...] AB/AG Negative Negative 12/23/2022 10:00 AM EDT [facility] Blood Venous blood specimen / Unknown Venipuncture / Unknown 12/23/2022 9:00 AM EDT 12/23/2022 9:00 AM EDT Narrative [facility] - 12/23/2022 10:00 AM EDT This test is a 4th generation HIV Antigen-Antibody Combination assay, using a chemiluminescent microparticle immunoassay, for the simultaneous qualitative detection of human immuno- deficiency virus (HIV) p24 antigen and antibodies to HIV type 1 (HIV-1) and/or HIV type 2 (HIV-2) in human serum or plasma. The [email or web address] HIV Ag/Ab Combo assay is intended to [...] BLOOD ORDERABLES NO STAT F inal Result Performing Organization Address City/State/[facility] Co de Phone Number [facility] [address] [place] [address], from Last 3 Months or Most Recently Relevant to Health Maintenance Insurance Care Teams Vessel Welder Relationship Specialty Start Date End Date Pooja Newell MD [address] [place] [address] PCP - General Internal Medicine 12/26/22 09/12/24
== END 2024-08-24 16:07 | disposition home or self-care (01) ==
LOC: HO.HSMS 15:49
PROVIDERS: PCP Pediatrics; Visit Provider Psychiatry & Neurology Neurology
DX: G43.719 Chronic migraine without aura, intractable, without status migrainosus (principal)
CPT/HCPCS: 64615

== ENCOUNTER → 2024-08-24 15:48 | Outpatient (BNVA) | payer BC, SELFPAY | PROVIDERS: PCP Pediatrics; Visit Provider Psychiatry & Neurology Neurology | DX: G43.719 Chronic migraine without aura, intractable, without status migrainosus (principal) | CPT/HCPCS: 64615; 99211; J0585 ==

== ENCOUNTER 2024-11-30 14:14 | Outpatient (AMB) | payer BC, SELFPAY ==
[2024-11-30 14:15] VITALS: BP 110/62; PULSE 69; O2SAT 98; BMI 20.9
--- NOTE | 2024-11-30 14:15 | A.OFFVIS_ITS ---
Vital Signs 11/30/24 14:15 Height 5 ft 10 in Weight 145 lb 6 oz BMI 20.9 BP 110/62 Blood Pressure Location Rt brachial Position Sitting Pulse 69 Pulse Source Pulse Oximeter Pulse Oximetry (%) 98 Oxygen Delivery Method Room Air Intake Visit Reasons: Botox Intake Note: Botox Supervisor Pipelines Required: No Accompanied by: Self / Same As Patient Allergies venlafaxine Allergy (Severe, Verified 11/30/24 14:15) Anaphylaxis Medication List - Last Reconciled 11/30/24 by Margo Ritchie MD fexofenadine 180 mg PO DAILY mirtazapine 30 mg PO BEDTIME onabotulinumtoxinA (Botox) to be injected to scalp and neck muscles by physician 200units; ondansetron HCl 4 mg PO Q8H PRN ubrogepant (Ubrelvy) 100 mg PO .PRN PRN HPI Comments Details: ? 24y/o male comes for treatment of migraines with botox. ??? Most frequent reported adverse reactions following injection of botox for chronic migraine include neck pain (9%), headache(5%), eyelid ptosis(4%), migraine(4%), muscular weakness(4%), musculuskeletal stiffness(4%), bronchitis(3%), injection site pain (3%), musculoskeletal pain(3%), myalgia(3%), facial paresis(2%), HTN(2%) and muscle spasms(2%) were discussed in detail. ??? Botulinum toxin typeA 200units Lot no [id number] expiration Apr 2027 was diluted with 4 cc of normal saline . How many migraine days prior to botox- 20-30days a month How long do the migraines last- 4-24 hrs Intensity of migraine-10 ER visits related to migraine -none Effectiveness of botox from last two treatment How many migraine days since receiving treatment: 0-2/month Change? in intensity of migraine? decreased Change in frequency of migraine?decreased Change in use of acute medication for migraine?decreased Change in quality of life?improved ER visits related to migraine?none Have at least three months elapsed since last treatment (Last botox date - frequency of injections) 3 mths ??? Muscles injected- ??? Frontalis 4 sites- 5units each ? Rail Transit Operator- 2 sites 5 units each ??? Temporalis- 8 sites 5units each ??? Cervical paraspinals- 4 sites 5 units each ??? Trapezius- 6 sites- 10 units each Occipitalis 10 units each Masseter 20 units each ? Total use- 200units ??? [facility] Medical History Chronic migraine without aura Hyperreflexia Numbness and tingling Cervicalgia Depression Migraine with aura, intractable, without status migrainosus Surgical History S/P cubital tunnel release Family History Brother Cluster headache Speech apraxia Autism Social History Alcohol intake: current Patient Tobacco Use Status: Never used Tobacco Substance Use Type: Marijuana Physical Exam Vital Signs: Last Vital Signs Pulse 69 11/30/24 14:15 BP 110/62 11/30/24 14:15 Pulse Ox 98 11/30/24 14:15 Oxygen Delivery Method Room Air 11/30/24 14:15 BMI result Body Mass Index 20.9 Const General: cooperative, healthy appearing and comfortable Nutritional Appearance: average body habitus Orientation/consciousness: patient oriented x3 Limitations: no limitations HEENT Head: Yes normal to inspection, Yes normocephalic and Yes atraumatic Face and sinus: Yes normal facial exam Neck Other: tightness or tenderness in lateral cervical muscles Neuro General: patient oriented x3, tone normal, moves all extremities and no focal motor deficits Coordination: [id number] test normal Office Procedures Botulinum toxin Injection 73125 - Migraine Procedure code (CPT) selection complete Office Meds onabotulinumtoxinA 200 unit solution for injection Performing Provider: Margo Ritchie MD Performing Location: [facility] [place] [facility] Administered by: Margo Ritchie MD on 11/30/24 14:44 Dose Route Admin Location Dispensed Lot Number Expiration Date [facility] Manager Regional Sales 200 unit subcut 200 units [id number] ALLERGAN /BOTOX Total Dispensed Waste 200 units 0 % Comments: see HPI Assessment & Plan Assessment & Plan (1) Chronic migraine without aura: Code(s): G43.709 - Chronic migraine without aura, not intractable, without status migrainosus Category: Medical Qualifiers: Status migrainosus presence: without status migrainosus Intractability: intractable Qualified Code(s): G43.719 - Chronic migraine without aura, intractable, without status migrainosus Plan Patient tolerated the procedure well He will call with any side effects He could not tolerate triptans Continue ubrelvy 100mg as needed for breakthrough migraines Orders: Orders AMB Botulinum toxin Injection Today G43.719 - Chronic migraine without aura, intractable, without status migrainosus Coding Level of Care Code Est Pt Level 1 (26299) Diagnoses Intractable chronic migraine without aura and without status migrainosus G43.719 Status migrainosus presence: without status migrainosus Intractability: intractable CPT Codes Botox Injection - Botox 3: 31147 - Migraine ([id number])
--- OUTSIDE RECORDS SUMMARY | 2024-11-30 18:04 | XMS_ITS ---
Author Name [facility] Organization Unknown Results Test Name/Text Value Interpretation Date Range Source CH50 SerPl-aCnc >60 Above high normal 11/24/2024 31 - 60 [facility] ANCA Ab Ser Ql NEGATIVE Normal 11/24/2024 - [facility] T CD19 Cells NFr Bld 9.0 % 11/24/2024 6 - 29 [facility] CD3-CD16+CD56+ Cells # Bld 309.0 cells/uL 11/24/2024 70 - 760 [facility] CD3+CD4+ Cells NFr Bld 39.0 % 11/24/2024 30 - 6 1 [facility] CD19 Cells # Bld 99.0 cells/uL Below low normal 11/24/2024 1 10 - 660 [facility] CD3+CD4+ Cells/CD3+CD8+ Cll Bld 1.63 11/24/2024 0.86 - 5 [facility] CD3+CD8+ Cells NFr Bld 24.0 % 11/24/2024 12 - 4 2 [facility] CD3+CD8+ Cells # Bld 258.0 cells/uL 11/24/2024 180 - 1170 [facility] CD3 Cells NFr Bld 62.0 % 11/24/2024 57 - 85 [facility] CD3-CD16+CD56+ Cells NFr Bld 29.0 % Above high normal 11/24/2024 4 - 25 [facility] Lymphocytes # Bld Auto 1084.0 cells/uL 11/24/2024 850 - 3900 [facility] CD3 Cells # Bld 669.0 cells/uL Below low normal 11/24/2024 8 40 - 3060 [facility] CD3+CD4+ Cells # Bld 420.0 cells/uL Below low normal 025 490 - 1740 [facility] S pneum Da 4 IgG Ser-mCnc <0.3 Normal 11/24/2024 [facility] S pneum Da 3 IgG Ser-mCnc <0.3 Normal 11/24/2024 [facility] pneum Da 23F IgG Ser-mCnc <0.3 Normal 11/24/2024 [facility] pneum Da 9V IgG Ser-mCnc <0.3 Normal 11/24/2024 [facility] pneum Da 12F IgG Ser-mCnc <0.3 Normal 11/24/2024 [facility] pneum Da 17F IgG Ser-mCnc <0.3 Normal 11/24/2024 [facility] pneum Da 9N IgG Ser-mCnc <0.3 Normal 11/24/2024 [facility] pneum Da 20A IgG Ser-mCnc 1.4 Normal 11/24/2024 [facility] S pneum Da 22F IgG Ser-mCnc <0.3 Normal 11/24/2024 [facility] pneum Da 33F IgG Ser-mCnc <0.3 Normal 11/24/2024 [facility] pneum Da 11A IgG Ser-mCnc <0.3 Normal 11/24/2024 [facility] S pneum Da 2 IgG Ser-mCnc <0.3 Normal 11/24/2024 [facility] S pn Da sero 19F IgG Ser-mCnc <0.3 Normal 11/24/2024 [facility] S pneum Da 1 IgG Ser-mCnc <0.3 Normal 11/24/2024 [facility] S pneum Da 18C IgG Ser-mCnc <0.3 Normal 11/24/2024 [facility] pneum Da 7F IgG Ser-mCnc 0.4 Normal 11/24/2024 [facility] S pneum Da 5 IgG Ser-mCnc <0.3 Normal 11/24/2024 [facility] S pneum Da 6B IgG Ser-mCnc 1.3 Normal 11/24/2024 [facility] S pneum Da 8 IgG Ser-mCnc <0.3 Normal 11/24/2024 [facility] S pneum Da 10A IgG Ser-mCnc <0.3 Normal 11/24/2024 [facility] S pneum Da 14 IgG Ser-mCnc <0.3 Normal 11/24/2024 [facility] S pneum Da 19A IgG Ser-mCnc <0.3 Normal 11/24/2024 [facility] S pneum Da 15B IgG Ser-mCnc <0.3 Normal 11/24/2024 [facility] IgA SerPl-mCnc 166.0 mg/dL Normal 11/24/2024 47 - 310 [facility] EST IgM SerPl-mCnc 114.0 mg/dL Normal 11/24/2024 50 - 300 QU EST IgG SerPl-mCnc 1116.0 mg/dL Normal 11/24/2024 600 - 1640 [facility] Basophils # Bld Auto 43.0 cells/uL Normal 11/24/2024 0 - 200 [facility] Lymphocytes # Bld Auto 1124.0 cells/uL Normal 11/24/2024 850 - 3900 [facility] Platelet # Bld Auto 226.0 Thousand/uL Normal 11/24/2024 1 40 - 400 [facility] Eosinophil # Bld Auto 21.0 cells/uL Normal 11/24/2024 15 - 500 [facility] Hgb Bld-mCnc 14.0 g/dL Normal 11/24/2024 13.2 - 17.1 [facility] T Hct VFr Bld Auto 42.3 % Normal 11/24/2024 38.5 - 50 [facility] EST WBC # Bld Auto 10.7 Thousand/uL Normal 11/24/2024 3.8 - 1 0.8 [facility] MCHC RBC Auto-EntMCnc 33.1 g/dL Normal 11/24/2024 32 - 36 [facility] Neutrophils # Bld Auto 8635.0 cells/uL Above high normal 12/2024 1500 - 7800 [facility] MCH RBC Qn Auto 29.0 pg Normal 11/24/2024 27 - [address] Monocytes NFr Bld Auto 8.2 % Normal 11/24/2024 [facility] MCV RBC Auto 87.8 fL Normal 11/24/2024 80 - 100 [facility] Neutrophils NFr Bld Auto 80.7 % Normal 11/24/2024 [facility] Eosinophil NFr Bld Auto 0.2 % Normal 11/24/2024 [facility] Erythrocyte DistWidth Bld Auto 12.6 % Normal 11/24/2024 11 - 15 [facility] Monocytes # Bld Auto 877.0 cells/uL Normal 11/24/2024 200 - 950 [facility] Lymphocytes NFr Bld Auto 10.5 % Normal 11/24/2024 [facility] RBC # Bld Auto 4.82 Million/uL Normal 11/24/2024 4.2 - 5. 8 [facility] Basophils NFr Bld Auto 0.4 % Normal 11/24/2024 [facility] PMV Bld Chacorta-Ollie 9.4 fL Normal 11/24/2024 7.5 - 12.5 [facility] Age Bld specimen 72 HRS 11/24/2024 [facility] EST Neutrophil OB Fr Bld 93.0 % 11/24/2024 [facility] C diphtheriae Ab Ser IA-aCnc 0.38 IU/mL 11/24/2024 [facility] Haem influ B IgG Ser IA-mCnc 0.61 mcg/mL Below low normal 11/24/2024 - [facility] SODIUM 141.0 mmol/L 10/10/2024 137 - 144 [facility] ANION GAP 9.0 mmol/L 10/10/2024 3 - 11 [facility] CHLORIDE 106.0 mmol/L 10/10/2024 100 - 111 [facility] CALCIUM, TOTAL 9.0 mg/dL 10/10/2024 8.4 - 10.2 [facility] GLOMERULAR FILTRATION RATE ML/MIN/1.73 SQ M.PREDICTED 96.0 mL/min/1.73m*2 10/10/2024 60 - [facility] POTASSIUM 4.3 mmol/L 10/10/2024 3.6 - 5.1 [facility] UREA NITROGEN 13.0 mg/dL 10/10/2024 8 - 24 [facility] BICARBONATE 26.0 mmol/L 10/10/2024 23 - 32 [facility] CREATININE 1.1 mg/dL 10/10/2024 0.6 - 1.2 [facility] GLUCOSE 99.0 mg/dL 10/10/2024 70 - 200 [facility] RBC DISTRIBUTION WIDTH 11.8 % 10/10/2024 11.6 - 14.8 [facility] WHITE CELL COUNT 12.5 10*3/uL Above high normal 10/10/2024 3 .8 - 10.6 [facility] MCH 29.7 pg 10/10/2024 26 - 34 [facility] MPV 9.1 fL Below low normal 10/10/2024 9.4 - 12.4 [facility] HEMATOCRIT 40.8 % 10/10/2024 40 - 52 [facility] RED CELL COUNT 4.68 10*6/ L 10/10/2024 4.4 - 5.9 [facility] MCV 87.2 fL 10/10/2024 80 - 100 [facility] MCHC 34.1 g/dL 10/10/2024 32 - 36 [facility] PLATELET COUNT 256.0 10*3/uL 10/10/2024 150 - 440 [facility] AUTO NRBC % 0.0 % 10/10/2024 0 - 0 [facility] HEMOGLOBIN 13.9 g/dL 10/10/2024 13 - 18 [facility] HIV-1 NAAT COPIES NOT DETECTED Not Detected 10/09/2024 - [facility] HIV-1 NAAT, LOG NOT DETECTED Not Detected 10/09/2024 - [facility] EBV ANTIBODY TO VIRAL CAPSID ANTIGEN IGG 69.7 U/mL Above high normal 10/09/2024 - [facility] EBV ANTIBODY TO EARLY (D) ANTIGEN IGG <5.0 10/09/2024 - [facility] EBV ANTIBODY TO VIRAL CAPSID ANTIGEN IGM <10.0 10/09/2024 - [facility] EBV ANTIBODY TO NUCLEAR ANTIGEN IGG 323.0 U/mL Above high normal 10/09/2024 - [facility] NEISSERIA GONORRHOEAE RIBOSOMAL RNA Negative 10/09/2024 - [facility] CHLAMYDIA TRACHOMATIS, NAAT Negative 10/09/2024 - [facility] HETEROPHILE ANTIBODIES Negative 10/09/2024 - [facility] SODIUM 140.0 mmol/L 10/09/2024 137 - 144 [facility] CREATININE 0.9 mg/dL 10/09/2024 0.6 - 1.2 [facility] POTASSIUM 3.6 mmol/L 10/09/2024 3.6 - 5.1 [facility] UREA NITROGEN 11.0 mg/dL 10/09/2024 8 - 24 [facility] CHLORIDE 108.0 mmol/L 10/09/2024 100 - 111 [facility] GLUCOSE 105.0 mg/dL 10/09/2024 70 - 200 [facility] ANION GAP 9.0 mmol/L 10/09/2024 3 - 11 [facility] GLOMERULAR FILTRATION RATE ML/MIN/1.73 SQ M.PREDICTED 122.0 mL/min/1.73m*2 10/09/2024 60 - [facility] BICARBONATE 23.0 mmol/L 10/09/2024 23 - 32 [facility] CALCIUM, TOTAL 8.5 mg/dL 10/09/2024 8.4 - 10.2 [facility] PLATELET COUNT 245.0 10*3/uL 10/09/2024 150 - 440 [facility] MCV 85.6 fL 10/09/2024 80 - 100 [facility] MCH 30.0 pg 10/09/2024 26 - 34 [facility] AUTO NRBC % 0.0 % 10/09/2024 0 - 0 [facility] MCHC 35.1 g/dL 10/09/2024 32 - 36 [facility] RBC DISTRIBUTION WIDTH 11.8 % 10/09/2024 11.6 - 14.8 [facility] MPV 9.2 fL Below low normal 10/09/2024 9.4 - 12.4 [facility] RED CELL COUNT 4.5 10*6/ L 10/09/2024 4.4 - 5.9 [facility] WHITE CELL COUNT 14.7 10*3/uL Above high normal 10/09/2024 3 .8 - 10.6 [facility] HEMOGLOBIN 13.5 g/dL 10/09/2024 13 - 18 [facility] HEMATOCRIT 38.5 % Below low normal 10/09/2024 40 - 52 [facility] NEISSERIA GONORRHOEAE RIBOSOMAL RNA Negative 10/09/2024 - [facility] CHLAMYDIA TRACHOMATIS, NAAT Negative 10/09/2024 - [facility] CMV ANTIBODY IGG <0.20 10/09/2024 - [facility] CMV ANTIBODY IGM <8.0 10/09/2024 - [facility] PARVOVIRUS B19 ANTIBODY IGG 0.58 IV 10/09/2024 - [facility] PARVOVIRUS B19 ANTIBODY IGM 0.49 IV 10/09/2024 - [facility] EHRLICHIA CHAFFEENSIS BY PCR Not Detected 10/09/2024 [facility] BABESIA SPECIES BY PCR Not Detected 10/09/2024 [facility] ANAPLASMA PHAGOCYTOPHILUM BY PCR Not Detected 10/09/2024 [facility] EHRLICHIA MURIS-LIKE BY PCR Not Detected 10/09/2024 [facility] EHRLICHIA EWINGII/CANIS BY PCR Not Detected 10/09/2024 [facility] BABESIA MICROTI BY PCR Not Detected 10/09/2024 [facility] BORRELIA BURGDORFERI ANTIBODIES, TOTAL BY CLIA 0.09 Index 10/09/2024 - 0.9 [facility] LYME (BORRELIA BURGDORFERI) ANTIBODIES, TOTAL INTERPRETATION Negative 10/09/2024 - [facility] INFLUENZA B PCR (CEPHEID) Not Detected 10/09/2024 [facility] SARS-COV-2 PCR (CEPHEID) Negative 10/09/2024 [facility] RSV PCR (CEPHEID) Not Detected 10/09/2024 [facility] INFLUENZA A PCR (CEPHEID) Not Detected 10/09/2024 [facility] HETEROPHILE ANTIBODIES Negative 10/09/2024 - [facility] INTERPRETATION (NON-MALARIA PARASITE SMEAR) No blood parasites seen 10/09/2024 - [facility] HIV 1+2 AB + HIV1 P24 AG (PRESENCE) IN SERUM BY IMMUNOASSAY Negative 10/09/2024 - [facility] SYPHILIS SCREEN Nonreactive 10/09/2024 - [facility] TROPONIN I, HIGH SENSITIVITY <3.0 ng/L 10/09/2024 - [facility] LIPASE 22.0 U/L 10/09/2024 8 - 51 [facility] ANION GAP 7.0 mmol/L 10/09/2024 3 - 11 [facility] CREATININE 1.2 mg/dL 10/09/2024 0.6 - 1.2 [facility] UREA NITROGEN 15.0 mg/dL 10/09/2024 8 - 24 [facility] GLOMERULAR FILTRATION RATE ML/MIN/1.73 SQ M.PREDICTED 86.0 mL/min/1.73m*2 10/09/2024 60 - [facility] CHLORIDE 108.0 mmol/L 10/09/2024 100 - 111 [facility] POTASSIUM 3.9 mmol/L 10/09/2024 3.6 - 5.1 [facility] SODIUM 142.0 mmol/L 10/09/2024 137 - 144 [facility] BICARBONATE 27.0 mmol/L 10/09/2024 23 - 32 [facility] CALCIUM, TOTAL 9.3 mg/dL 10/09/2024 8.4 - 10.2 [facility] GLUCOSE 95.0 mg/dL 10/09/2024 70 - 200 [facility] ALKALINE PHOSPHATASE 63.0 U/L 10/09/2024 39 - 113 [facility] ALBUMIN, AUTOMATED 4.7 g/dL 10/09/2024 3.8 - 5.3 [facility] BILIRUBIN, DIRECT 0.2 mg/dL 10/09/2024 0 - 0.5 [facility] PROTEIN TOTAL 7.6 g/dL 10/09/2024 6.2 - 8.1 [facility] BILIRUBIN, TOTAL 0.5 mg/dL 10/09/2024 0.1 - 1.2 [facility] ALT (SGPT) 20.0 U/L 10/09/2024 - [facility] AST (SGOT) 28.0 U/L 10/09/2024 8 - 45 [facility] IMMATURE GRANULOCYTE % 0.5 % 10/09/2024 0 - 0. 6 [facility] AUTO NRBC % 0.0 % 10/09/2024 0 - [address] [facility] [address] 0.01 10*3/uL 10/09/2024 0 - 0.3 [facility] WHITE CELL COUNT 13.0 10*3/uL Above high normal 10/09/2024 3 .8 - 10.6 [facility] MCH 30.2 pg 10/09/2024 26 - 34 [facility] MONOCYTE % 8.2 % 10/09/2024 4 - 12 [facility] ABSOLUTE IMMATURE GRANULOCYTES 0.06 10*3/uL 10/09/2024 [facility] RED CELL COUNT 4.51 10*6/ L 10/09/2024 4.4 - 5.9 [facility] MPV 9.1 fL Below low normal 10/09/2024 9.4 - 12.4 [facility] MCHC 35.2 g/dL 10/09/2024 32 - 36 [facility] MCV 85.6 fL 10/09/2024 80 - 100 [facility] LYMPHOCYTE % 6.5 % Below low normal 10/09/2024 20 - 50 [facility] NEUTROPHIL % 84.5 % Above high normal 10/09/2024 40 - 70 [facility] PLATELET COUNT 258.0 10*3/uL 10/09/2024 150 - 440 [facility] HEMOGLOBIN 13.6 g/dL 10/09/2024 13 - [address] [facility] [address] 10.98 10*3/uL Above high normal 10/09/2024 1.4 - 6.3 [facility] EOSINOPHIL % 0.1 % 10/09/2024 0 - 6 [facility] BASOPHILS % 0.2 % 10/09/2024 0 - [address] [facility] [address] 0.03 10*3/uL 10/09/2024 0 - 0 .2 [facility] HEMATOCRIT 38.6 % Below low normal 10/09/2024 40 - 52 [facility] [address]UTE [address]. 0.85 10*3/uL 10/09/2024 0.7 - 4.[address] [facility] [address] 1.06 10*3/uL Above high normal 07/26/2 025 0.2 - 0.8 [facility] RBC DISTRIBUTION WIDTH 11.8 % 10/09/2024 11.6 - 14.8 [facility] SARS-COV-2 PCR (Hotelicopter) Negative Normal 04/02/2023 [facility] HIV-1 NAAT, LOG NOT DETECTED Not Detected Normal 12/23/2022 - [facility] HIV-1 NAAT COPIES NOT DETECTED Not Detected Normal 12/23/2022 - [facility] HETEROPHILE ANTIBODIES Negative Normal 12/23/2022 - [facility] HIV 1+2 AB + HIV1 P24 AG (PRESENCE) IN SERUM BY IMMUNOASSAY Negative Normal 12/23/2022 - [facility] PROTEIN TOTAL 7.3 g/dL Normal 12/23/2022 6.2 - 8.1 [facility] ALT (SGPT) 14.0 U/L Normal 12/23/2022 8 - 39 [facility] AST (SGOT) 22.0 U/L Normal 12/23/2022 17 - 35 [facility] ALBUMIN, AUTOMATED 4.9 g/dL Normal 12/23/2022 3.8 - 5.3 [facility] BILIRUBIN, TOTAL 1.0 mg/dL Normal 12/23/2022 0.1 - 1.2 [facility] BILIRUBIN, DIRECT 0.3 mg/dL Normal 12/23/2022 0 - 0.5 [facility] ALKALINE PHOSPHATASE 68.0 U/L Normal 12/23/2022 39 - 113 [facility] IMMUNOGLOBULIN A 148.0 mg/dL Normal 12/23/2022 82 - 460 [facility] IMMUNOGLOBULIN G 1099.0 mg/dL Normal 12/23/2022 624 - 176 6 [facility] IMMUNOGLOBULIN M 104.0 mg/dL Normal 12/23/2022 22 - 293 [facility] MCHC 35.2 g/dL Normal 12/23/2022 32 - [address] [facility] [address] 1.7 10*3/uL Normal 12/23/2022 0.7 - 4.5 [facility] LYMPHOCYTE % 23.5 % Normal 12/23/2022 20 - 50 [facility] BASOPHILS % 0.7 % Normal 12/23/2022 0 - 2 [facility] EOSINOPHIL % 1.9 % Normal 12/23/2022 0 - 6 [facility] WHITE CELL COUNT 7.2 10*3/uL Normal 12/23/2022 3.8 - 10.6 [facility] RED CELL COUNT 5.07 10*6/ L Normal 12/23/2022 4.4 - 5.[address] [facility] [address] 0.7 10*3/uL Normal 12/23/2022 0.2 - 0.8 [facility] NEUTROPHIL % 63.9 % Normal 12/23/2022 40 - [address] [facility] [address] 0.1 10*3/uL Normal 12/23/2022 0 - 0.3 [facility] PLATELET COUNT 273.0 10*3/uL Normal 12/23/2022 150 - 440 [facility] MONOCYTE % 9.7 % Normal 12/23/2022 4 - [address] [facility] [address] 4.6 10*3/uL Normal 12/23/2022 1.4 - 6.3 [facility] MCH 29.6 pg Normal 12/23/2022 26 - 34 [facility] RBC DISTRIBUTION WIDTH 12.0 % Normal 12/23/2022 11.6 - 14.8 [facility] HEMATOCRIT 42.6 % Normal 12/23/2022 40 - 52 [facility] MCV 84.0 fL Normal 12/23/2022 80 - 100 [facility] HEMOGLOBIN 15.0 g/dL Normal 12/23/2022 13 - 18 [facility] IMMATURE GRANULOCYTE % 0.3 % Normal 12/23/2022 0 - 0. 6 [facility] AUTO NRBC % 0.0 % Normal 12/23/2022 0 - [address] [facility] [address] 0.1 10*3/uL Normal 12/23/2022 0 - 0. 2 [facility] History of Medication Use Medication Directions Dispensed Refills Start Date End Date Stat fluticasone (FloNASE) 50 mcg/spray nasal spray 1 spray into each nostril daily. 10/19/2024 active levocetirizine (XYZAL) 5 MG tablet Take 1 tablet (5 mg total) by mouth every evening. 10/19/2024 active mirtazapine (REMERON) 30 MG tablet Take 1 tablet (30 mg total) by mouth nightly. 09/07/2024 active guaiFENesin ER (Mucinex) 600 mg 12 hr tablet Take 1 tablet (600 mg total) by mouth in the morning and 1 tablet (600 mg total) before bedtime. 12/31/2022 01/31/2023 active DULoxetine (CYMBALTA) 20 mg capsule 12/25/2022 active Allergies Allergen Reaction Severity Comment Documented Date Source Statu s APPLE HIVES [facility] and [facility] VENLAFAXINE SWELLING 03/26/2022 [facility] active ETHINYL ESTRADIOL COUGH 08/03/2018 [facility] POLLEN EXTRACT FEVER 08/03/2018 [facility] active POLLEN EXTRACTS 08/03/2018 [facility] activ e Problems Problem Status Onset Date Problem Type Date of Resolution Source Recurrent infections active 2024-11-18 ProblemAct [facility] Fever of unknown origin (FUO) active EncounterDiagnosisAct [facility] Postnasal drip active 2022-12-[address] Sore throat active 2023-04-02 ProblemAct [facility] Sinus pressure active 2022-12-31 ProblemAct [facility] Gastroesophageal reflux disease with esophagitis without hemorrhage active 2022-03-27 ProblemAct [facility] Seasonal allergic rhinitis due to pollen active 2022-12-31 ProblemAct [facility] Chronic sinusitis active 2022-12-31 ProblemAct [facility] Left ear pain active 2023-06-26 ProblemAct [facility] 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 ProblemAct [facility] Left otitis media with effusion active 2023-04-02 ProblemAct [facility] Migraines active 2018-03-17 ProblemAct [facility] Encounters Encounter Type Encounter Reason Primary Diagnosis Location Date Ambulatory Unspecified infectious disease Unspecified infectious disease [facility] 11/18/2024 Ambulatory Acute pharyngitis, unspecified Acute pharyngitis, unspecified [facility] 11/16/2024 Ambulatory Encounter for genera l adult medical examination without abnormal findings Encounter for general adult medical examination without abnormal findings [facility] 10/19/2024 Emergency Fever, unspecified Fever, unspecified [facility] 10/09/2024 Ambulatory Streptococcal pharyngitis Streptococcal pharyngitis [facility] 10/07/2024 Ambulatory Chronic sinusitis, unspecified Chronic sinusitis, unspecified [facility] 04/21/2023 Ambulatory Anesthesia of skin Anesthesia of skin [facility] 04/08/2023 Ambulatory Anesthesia of skin Anesthesia of skin [facility] 04/08/2023 Ambulatory Encounter for screening for other viral Encounter for screening for other viral diseases [facility] 04/02/2023 Ambulatory Allergic rhinitis du e to pollen Allergic rhinitis due to pollen [facility] 03/26/2023 Ambulatory Pain in right hand Pain in right hand [facility] 01/29/2023 Ambulatory Pain in right hand Pain in right hand [facility] 01/29/2023 Ambulatory Pain in right hand Pain in right hand [facility] 01/29/2023 Ambulatory Chronic sinusitis, unspecified Chronic sinusitis, unspecified [facility] 12/31/2022 Ambulatory New Patient New Patient [facility] 12/31/2022 Ambulatory Encounter for genera l adult medical exam Encounter for general adult medical examination without abnormal findings [facility] 12/26/2022 Ambulatory Acute upper respiratory infection, unspe Acute upper respiratory infection, unspecified [facility] 12/23/2022 Care Team Organization Name Specialty Phone Email Start Date End Da te [facility] Kathleen Hemphill Primary [facility] 10/19/2024 [facility] ELLA MAI Primary Care 5 [facility] 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
--- OUTSIDE RECORDS SUMMARY | 2024-11-30 18:04 | XMS_ITS | Clinical Summary ---
Author Organization [address] Address [address] [place] [phone] Phone Care Team Providers Care Winding Rack Operator Name Role Phone Unavailable Primary Care Provider [...] 49 01/01/2021 4:45 PM EDT Temperature 37 C (98.6 F) 08/05/2018 4:00 PM EDT Respiratory Rate 16 [...] (Td q 10,TDAP once) 2019 Influenza vaccine 10/15/2024 Covid-19 vaccine series (1 - 2023- season) 2024 RSV Immunization (1 - 1-dose 75+ series) 2074 HIB Vaccines Aged Out No longer eligi ble based on patient's age to complete this topic Hepatitis A Vaccines Aged Out No long er eligible based on patient's age to complete this topic IPV Vaccines Aged Out No longer eligi ble based on patient's age to complete this topic Meningococcal B Vaccine Aged Out No l onger eligible based on patient's age to complete this topic Meningococcal Vaccine Aged Out No diego martha eligible based on patient's age to complete this topic Pneumococcal Vaccine (2 - 49 years) Aged Out No longer eligible based on patient's age to complete this topic Rotavirus Vaccines Aged Out No longer eligible based on patient's age to complete this topic Insurance [place] Subscriber Plan / Payer (Ef fective 2018-Present) Name:Kyler Ibarra Relation to Subscriber:Self Name:Kyler Ibarra Payer ID:[id number] Group ID:Not on file Type:Not on file Address: [address] [place] Member Subscriber Plan / Payer (Ef fective 2018-Present) Name:Kyler Ibarra Relation to Subscriber:Self Name:Kyler Ibarra Payer ID:[id number] Group ID:Not on file Type:Not on file Address: [address] [place] Member Subscriber Plan / Payer (Ef fective 2018-Present) Name:Kyler Ibarra Relation to Subscriber:Self Name:Kyler Ibarra Payer ID:[id number] Group ID:Not on file Type:Not on file Address: [address]
--- OUTSIDE RECORDS SUMMARY | 2024-11-30 18:04 | XMS_ITS | Encounter Summary ---
Author Organization [facility] Address [address] [place] [address] [place] [id number] Phone Care Team Providers Care Energy Projects Lead Name Role Phone Mateo Alfred MD Primary Care Provider [phone] Mateo Alfred MD Unavailable [phone] Mateo Alfred MD Primary Care Provider [phone] Encounter Details Date Type Department Care Team (Late st Contact Info) Description 01/30/2022 Procedure Pass [address] [place] [address] Social History Tobacco Use Types Packs/Day Years Used Date Smoking Tobacco: Never Smokeless Tobacco: Never Alcohol Use Standard Drinks/Week Comments Yes 0 (1 standard drink = 0.6 oz pur e alcohol) Sex and Gender Information Value Date Recorded Sex Assigned at Not on file Legal Sex Male 10:07 AM EDT Gender Identity Not on file Sexual Orientation Not on file documented as of this encounter Plan of Treatment Not on file documented as of this encounter Visit Diagnoses Not on filedocumented in this encounter Care Teams Energy Projects Lead Relationship Specialty Start Date End Date [facility] [address] [place] [address] [email or web address] PCP - General Internal Medicine 12/22/21 08/09/24 Mateo Alfred MD [address] [place] [address], [address] [place] [address] [email or web address] PCP - General Internal Medicine 08/13/24 Mateo Alfred MD [address] [place] [address], [address] [place] [address] [email or web address] Assigned Provider 07/20/22 01/25/23 documented as of this encounter Additional Source Comments The information contained in this document represents components of the legal health record. It is not the complete legal health record.[facility]
--- OUTSIDE RECORDS SUMMARY | 2024-11-30 18:04 | XMS_ITS | Encounter Summary ---
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 Name Role Phone Mateo Alfred MD Primary Care Provider [phone] Mateo Alfred MD Unavailable Mateo Alfred MD Primary Care Provider [phone] Reason for Referral * Physical Therapy (Routine) - Closed Specialty Diagnoses / Procedures Referred By Bob dudley Referred To Contact Physical Therapy Diagnoses Encounter for rehabilitation Mateo Alfred MD Phone: tel: fax: [email or web address] [address] [address] Phone: tel: Referral ID Status Reason Start Date Expiration Date Visits Re quested Visits Authorized [id number] Closed 06/07/2022 03/16/2023 26 26 Encounter Details Date Type Department Care Team (Latest Contact Info) Description 04/26/2022 Transcribe Orders [facility] [address] [place] [id number] Margo Ritchie MD [address] [place] [id number] Encounter for rehabilitation (Primary Dx) Social History Tobacco Use Types Packs/Day Years Used Date Smoking Tobacco: Never Smokeless Tobacco: Never Alcohol Use Standard Drinks/Week Comments Yes 0 (1 standard drink = 0.6 oz pur e alcohol) 1-2 per month Child or Family Care Answer Date Record ed Do you have problems with on e of the following making it difficult for you to work, study, or receive health care? No 03/25/2022 Education Answer Date Recorded Are you interested in help w ith more adult education (for example, completing high school, GED, job training, learning the [place] language, technical skills, or developing parenting skills)? No 03/25/2022 Food Answer Date Recorded Within the past 6 months we worried whether our food would run out before we got money to buy more. Never True 023 Within the past 6 months the food we bought just didn't last and we didn't have enough money to get more. Sometimes True 11/2022 Residential Stability Answer Date Recor ded What is your housing situation today? I have luis sing 03/25/2022 How many times have you moved in the past 12 fri ths? Two or more times 03/25/2022 Paying for Meds Answer Date Recorded Do you have trouble paying for medicines? No 03/25/2022 Paying Utility Bills Answer Date Record ed Do you have trouble paying your heating or elect ricity bill? No 03/25/2022 Transportation Answer Date Recorded Has the lack of transportati on kept you from medical appointments or from getting medications? No 03/25/2022 Unemployment Answer Date Recorded Are you currently unemployed or working on a part-time or temporary basis, and looking for work? No 03/25/2022 Intimate Partner Violence Answer Date R ecorded Denied Basic Needs Not on file 03/25/2022 In the past 12 months have y ou been in a relationship with a person who hurts, threatens, or tries to control you? No 03/25/2022 Worried food would run out Not on file 03/25 In the past 12 months have y ou been in a relationship with a person who hurts, threatens, or tries to control you? No 03/25/2022 Sex and Gender Information Value Date Recorded Sex Assigned at Not on file Legal Sex Male 10:07 AM EDT Gender Identity Not on file Sexual Orientation Not on file documented as of this encounter Plan of Treatment Not on file documented as of this encounter Procedures Procedure Name Priority Date/Time Associated Diagnosis Comments AMB REFERRAL TO [facility] Routine 06/07/2022 5:16 PM EDT Encounter for rehabilitation documented in this encounter Results * Ambulatory referral to [facility] Physical Therapy (06/07/2022 5:16 PM EDT) Other us Margo LEVIN [facility] RE[facility] Final Result documented in this encounter Visit Diagnoses Diagnosis Encounter for rehabilitation- Primary documented in this encounter Additional Health Concerns Assessment Noted Time PHQ-9 Depression Total Score: 12 023 12:59 PM EST PHQ-2 Depression Total Score: 4 04/25/19 23 12:59 PM EST documented as of this encounter Care Teams Rail Project Engineer Relationship Specialty Start Date End Date Mateo Alfred MD [address] [facility], [address] [place] [phone] PCP - General Internal Medicine 12/22/21 08/09/24 Mateo Alfred MD [address] [facility], [address] [place] [phone] PCP - General Internal Medicine 08/13/24 Mateo Alfred MD [address] [facility], [address] [place] [address] Insurance Assigned Provider 07/20/22 01/25/23 documented as of this encounter Additional Source Comments The information contained in this document represents components of the legal health record. It is not the complete legal health record.[facility]
--- OUTSIDE RECORDS SUMMARY | 2024-11-30 18:04 | XMS_ITS | Clinical Summary ---
Author Organization [facility] Address [address] [place] [address] Care Team Providers Care Molder Pipe Covering Name Role Phone Pcp, No MD Primary Care Provider Unavailabl e Allergies Active Allergy Reactions Criticality Noted Date Comments Apple GI intolerance Medium 05/07/2022 Mouth swelling and itching Apricot GI intolerance Medium 10/09/2024 Ford Pepper Other (see comments) Medium 10/09/2024 pain Jacques Swelling High 10/09/2024 Nectarine GI intolerance Medium 10/09/2024 Pollen Extracts Itching,Swelling Medium 08/03/2018 Venlafaxine Anaphylaxis,Hives,It alverto ,Shortness of breath,Swelling High 03/26/2022 Medications * This document contains information received from the source organization and may not represent a complete record from that organization. mirtazapine (REMERON) 30 mg tablet Take 30 mg by mouth nightly. 5 Active acetaminophen (TYLENOL) 325 mg tablet Take 650 mg by mouth every 6 (six) hours as needed for mild pain (1-3), moderate pain (4-7), headaches or temp >101.5. 30 tablet 5 Active Active Problems Problem Noted Date Diagnosed Date FUO (fever of unknown origin) 10/09/2024 Assessment & Plan (10/10/2024 9:32 PM EDT): Patient presented to the ED with a reported fever of 105 F, on exam his fever was 103.7 F. Patient also admitted to having chills. He had previously been seen by urgent care on 2 separate occasions this month for a sore throat, he has received amoxicillin which was completed as well as penicillin while in the hospital patient had blood cultures drawn, as well as infectious disease consult. Testing was done for many different causes of fever as described above. At the time of discharge AMA, the fever remains of unknown origin. - Patient educated on the concern for fever as well as to return back to the ED with a fever greater than 102, as well as to take Tylenol as needed for fevers greater than 101.5. - Patient advised to follow-up with PCP in 2 weeks max, as well as to follow-up with testing results. Assessment & Plan (10/10/2024 4:00 PM EDT): Patient presents with about 3-week history of fever, malaise, sore throat and statin cough. Symptoms have been intermittent and was evaluated about 2 weeks ago and received 10 days of amoxicillin with some improvement. On reevaluation on 10/07, was diagnosed with suspected streptococcal pharyngitis although negative strep test and was started on penicillin VK. He developed her drug rash following this on the abdomen. Recent travel to [facility] about 5 weeks ago. No international travel. Sexually acting with girlfriend for the last 8 months without condom use. Fever of unknown origin with negative parasite smear, RSV COVID influenza, negative for chlamydia and gonorrhea on throat swab as well as urine. - Follow blood cultures, throat culture - Follow HIV 1 RNA quantitative, EBV antibody panel, CMV antibody panel, parvovirus B19 IgG, IgM, tick panel, Lyme antibody - Continue monitoring for the next 24 hours for any fevers. If fever free can consider discharge. - Patient does not have a PCP would benefit from follow-up at transition care at [facility] to follow-up on above labs. - May rec may benefit from ENT referral on discharge - ENT on board, appreciate recs - ID on board, appreciate recs - Holding off antibiotics at this time. Junctional rhythm 10/09/2024 Assessment & Plan (10/10/2024 9:32 PM EDT): In the ED patient was found to have junctional rhythm on his first EKG, on repeat EKG the next day patient was back to normal sinus rhythm. Patient was placed on telemetry during his stay in the hospital, with further junctional rhythm. This was likely in the setting of infection/fever. Internal medicine team spoke briefly with cardiology, no concerns for further workup were found at that time given his normal EKG and no further telemetry concerns, fully resolved. Assessment & Plan (10/10/2024 2:48 PM EDT): Has a history of abnormal EKG and chest pain, had an echo performed in 2017, with normal LVEF and wall motion, normal right ventricular function. No issues with valves. Normal Holter from that time too, chest pain was attributed to anxiety. EKG from this admission shows junctional rhythm, tachycardic. Negative serial troponin. Tachycardia may be due to underlying infection. Patient had an appearance of a junctional rhythm on arrival however repeat EKG was normal. -No intervention or recommendations from cardiology. Does not require follow-up. - Follow TTE, may help with any possibility of infectious endocarditis. Assessment & Plan (10/09/2024 1:19 PM EDT): Has a history of abnormal EKG and chest pain, had an echo performed in 2017, with normal LVEF and wall motion, normal right ventricular function. No issues with valves. Normal Holter from that time too, chest pain was attributed to anxiety. EKG from this admission shows junctional rhythm, tachycardic. Negative serial troponin. Tachycardia may be due to underlying infection. No murmur auscultated, but junctional rhythm is new in the setting of infection. - On telemetry - On pulse ox - Consider cardiology consult if does not resolve -Follow-up EKG normal sinus rhythm 10/09/2024 Assessment & Plan (10/09/2024 5:39 AM EDT): Has a history of abnormal EKG and chest pain, had an echo performed in 2017, with normal LVEF and wall motion, normal right ventricular function. No issues with valves. Normal Holter from that time too, chest pain was attributed to anxiety. EKG from this admission shows junctional rhythm, tachycardic. Negative serial troponin. Tachycardia may be due to underlying infection. No murmur auscultated, but junctional rhythm is new in the setting of infection. - On telemetry - On pulse ox - Consider cardiology consult if does not resolve Pharyngitis 10/09/2024 Assessment & Plan (10/10/2024 9:32 PM EDT): Patient has had a sore throat September 16, has been seen outpatient twice in 2 different urgent care settings. He received a full dose of amoxicillin to no resolve, followed by penicillin which he had a rash following administration. Patient is discharged AMA with continued pharyngitis. During his stay, patient had a CT neck with contrast with findings as listed above. Infectious disease as well as ENT consults were placed and the recommendations were followed, including blood cultures and a full panel of infections to rule out, all were either negative or pending as above. Patient did not receive antibiotics while in the hospital, patient was closely monitored and infectious source could not be found at this time. - Follow-up with PCP in the next 2 weeks Assessment & Plan (10/10/2024 4:00 PM EDT): Patient presents with about 3-week history of fever, malaise, sore throat and statin cough. Symptoms have been intermittent and was evaluated about 2 weeks ago and received 10 days of amoxicillin with some improvement. On reevaluation on 10/07, was diagnosed with suspected streptococcal pharyngitis although negative strep test and was started on penicillin VK. He developed her drug rash following this on the abdomen. Recent travel to [facility] about 5 weeks ago. No international travel. Sexually acting with girlfriend for the last 8 months without condom use. Fever of unknown origin with negative parasite smear, RSV COVID influenza, negative for chlamydia and gonorrhea on throat swab as well as urine. - Follow blood cultures, throat culture - Follow HIV 1 RNA quantitative, EBV antibody panel, CMV antibody panel, parvovirus B19 IgG, IgM, tick panel, Lyme antibody - Continue monitoring for the next 24 hours for any fevers. If fever free can consider discharge. - Patient does not have a PCP would benefit from follow-up at transition care at [facility] to follow-up on above labs. - May rec may benefit from ENT referral on discharge - ENT on board, appreciate recs - ID on board, appreciate recs - Holding off antibiotics at this time. Assessment & Plan (10/09/2024 1:19 PM EDT): Uvula appear midline, does shift with position changes. Right-sided tonsil slightly larger without exudate, and he has jugular lymphadenopathy. May be tonsillitis or nonstrep/viral pharyngitis, given amox/penicillin did not resolve the infection. No airway obstruction, does have some soreness with swallowing, less likely peritonsillar abscess. No new sexual partners per patient, however he did agree it would be jeffries to do another STD screen. Consider imaging if serologies return negative. Rash may be related, or drug reaction. - Blood cultures given new junctional rhythm - HIV quant, syphilis, mono serology, tick panel, non-malaria smear, parvo, CMV, EBV - Chlamydia, gonorrhea pharyngeal PCR - Monitor off abx - ENT consult - ID following, appreciate recommendations. Assessment & Plan (10/09/2024 5:39 AM EDT): Uvula appear midline, does shift with position changes. Right-sided tonsil slightly larger without exudate, and he has jugular lymphadenopathy. May be tonsillitis or nonstrep/viral pharyngitis, given amox/penicillin did not resolve the infection. No airway obstruction, does have some soreness with swallowing, less likely peritonsillar abscess. No new sexual partners per patient, however he did agree it would be jeffries to do another STD screen. Consider imaging if serologies return negative. Rash may be related, or drug reaction. - Blood cultures given new junctional rhythm - HIV, syphilis, mono serology, tick panel, non-malaria smear, parvo, CMV - Chlamydia, gonorrhea pharyngeal PCR - A.m. CBC - Monitor off abx - ENT consult - ID consult Anxiety 10/09/2024 Assessment & Plan (10/10/2024 9:32 PM EDT): Patient takes home mirtazapine 30 mg nightly, continued in hospital. Assessment & Plan (10/10/2024 2:45 PM EDT): - Mirtazapine 30 mg nightly Assessment & Plan (10/09/2024 1:19 PM EDT): - Mirtazapine 30 mg nightly Assessment & Plan (10/09/2024 5:43 AM EDT): - Mirtazapine 30 mg nightly LUQ fullness 10/09/2024 Assessment & Plan (10/10/2024 9:32 PM EDT): Patient had abdominal pain under the left ribs on admission, as well as pain to palpation in the left upper quadrant. In the setting of sore throat, fever, considered mono as a possible cause and concern for splenomegaly. Patient stated he did have mono in the past but never had a formal positive test. On chest x-ray, a large stool burden in the left upper quadrant was seen. A monoscreen was done in the hospital and negative. Other tests were ordered including CMV and EBV, still pending as above. - Follow-up with PCP in the next 1 to 2 weeks, follow lab results. Assessment & Plan (10/10/2024 4:00 PM EDT): Patient presents with about 3-week history of fever, malaise, sore throat and statin cough. Symptoms have been intermittent and was evaluated about 2 weeks ago and received 10 days of amoxicillin with some improvement. On reevaluation on 10/07, was diagnosed with suspected streptococcal pharyngitis although negative strep test and was started on penicillin VK. He developed her drug rash following this on the abdomen. Recent travel to [facility] about 5 weeks ago. No international travel. Sexually acting with girlfriend for the last 8 months without condom use. Fever of unknown origin with negative parasite smear, RSV COVID influenza, negative for chlamydia and gonorrhea on throat swab as well as urine. - Follow blood cultures, throat culture - Follow HIV 1 RNA quantitative, EBV antibody panel, CMV antibody panel, parvovirus B19 IgG, IgM, tick panel, Lyme antibody - Continue monitoring for the next 24 hours for any fevers. If fever free can consider discharge. - Patient does not have a PCP would benefit from follow-up at transition care at [facility] to follow-up on above labs. - May rec may benefit from ENT referral on discharge - ENT on board, appreciate recs - ID on board, appreciate recs - Holding off antibiotics at this time. Assessment & Plan (10/09/2024 1:19 PM EDT): Patient reports some abdominal pain under the left ribs. He states that he did have mono previously, but never had formal positive test. CXR shows large stool burden in this area. - Butts screening as above -Bowel regimen as needed Assessment & Plan (10/09/2024 5:39 AM EDT): Patient reports some abdominal pain under the left ribs. He states that he did have mono previously, but never had formal positive test. CXR shows large stool burden in this area. - Butts screening as above Drug rash 10/09/2024 Assessment & Plan (10/10/2024 9:32 PM EDT): Patient has had a sore throat September 16, has been seen outpatient twice in 2 different urgent care settings. He received a full dose of amoxicillin to no resolve, followed by penicillin which he had a rash following administration. Patient is discharged AMA with continued pharyngitis. During his stay, patient had a CT neck with contrast with findings as listed above. Infectious disease as well as ENT consults were placed and the recommendations were followed, including blood cultures and a full panel of infections to rule out, all were either negative or pending as above. Patient did not receive antibiotics while in the hospital, patient was closely monitored and infectious source could not be found at this time. - Follow-up with PCP in the next 2 weeks Assessment & Plan (10/10/2024 4:00 PM EDT): Patient presents with about 3-week history of fever, malaise, sore throat and statin cough. Symptoms have been intermittent and was evaluated about 2 weeks ago and received 10 days of amoxicillin with some improvement. On reevaluation on 10/07, was diagnosed with suspected streptococcal pharyngitis although negative strep test and was started on penicillin VK. He developed her drug rash following this on the abdomen. Recent travel to [facility] about 5 weeks ago. No international travel. Sexually acting with girlfriend for the last 8 months without condom use. Fever of unknown origin with negative parasite smear, RSV COVID influenza, negative for chlamydia and gonorrhea on throat swab as well as urine. - Follow blood cultures, throat culture - Follow HIV 1 RNA quantitative, EBV antibody panel, CMV antibody panel, parvovirus B19 IgG, IgM, tick panel, Lyme antibody - Continue monitoring for the next 24 hours for any fevers. If fever free can consider discharge. - Patient does not have a PCP would benefit from follow-up at transition care at [facility] to follow-up on above labs. - May rec may benefit from ENT referral on discharge - ENT on board, appreciate recs - ID on board, appreciate recs - Holding off antibiotics at this time. Assessment & Plan (10/09/2024 1:19 PM EDT): Uvula appear midline, does shift with position changes. Right-sided tonsil slightly larger without exudate, and he has jugular lymphadenopathy. May be tonsillitis or nonstrep/viral pharyngitis, given amox/penicillin did not resolve the infection. No airway obstruction, does have some soreness with swallowing, less likely peritonsillar abscess. No new sexual partners per patient, however he did agree it would be ejffries to do another STD screen. Consider imaging if serologies return negative. Rash may be related, or drug reaction. - Blood cultures given new junctional rhythm - HIV quant, syphilis, mono serology, tick panel, non-malaria smear, parvo, CMV, EBV - Chlamydia, gonorrhea pharyngeal PCR - Monitor off abx - ENT consult - ID following, appreciate recommendations. Assessment & Plan (10/09/2024 5:39 AM EDT): Uvula appear midline, does shift with position changes. Right-sided tonsil slightly larger without exudate, and he has jugular lymphadenopathy. May be tonsillitis or nonstrep/viral pharyngitis, given amox/penicillin did not resolve the infection. No airway obstruction, does have some soreness with swallowing, less likely peritonsillar abscess. No new sexual partners per patient, however he did agree it would be jeffries to do another STD screen. Consider imaging if serologies return negative. Rash may be related, or drug reaction. - Blood cultures given new junctional rhythm - HIV, syphilis, mono serology, tick panel, non-malaria smear, parvo, CMV - Chlamydia, gonorrhea pharyngeal PCR - A.m. CBC - Monitor off abx - ENT consult - ID consult Left ear pain 06/26/2023 Assessment & Plan [...] ulnar nerve at elbow 019 Migraines 03/17/2018 Assessment & Plan (10/10/2024 9:32 PM EDT): Patient has longstanding history of migraines, which he stated have worsened recently in the setting of his sore throat. Patient states he does not take sumatriptan due to a bad reaction, has had Botox injections in the past for migraines likely related to muscle strain. While in the hospital patient was given Tizanidine as needed and taken once. - If migraines persist, follow-up with PCP, repeat Botox injections as needed. Assessment & Plan (10/10/2024 2:45 PM EDT): Patient reports longstanding history of migraines, has worsened recently due to sore throat. Had reaction to sumatriptan, usually does Botox injections for migraines, likely related to muscle strain. - Tylenol as needed - Tizanidine as needed Assessment & Plan (10/09/2024 1:19 PM EDT): Patient reports longstanding history of migraines, has worsened recently due to sore throat. Had reaction to sumatriptan, usually does Botox injections for migraines, likely related to muscle strain. - Tylenol as needed - Tizanidine as needed Assessment & Plan (10/09/2024 4:48 AM EDT): Patient reports longstanding history of migraines, has worsened recently due to sore throat. Had reaction to sumatriptan, usually does Botox injections for migraines, likely related to muscle strain. - Tylenol as needed - Tizanidine as needed Resolved Problems Problem Noted Date Diagnosed Date Resolved Date Sore throat 04/02/2023 07/06/2024 Chronic sinusitis 12/31/2022 07/06/2024 Encounters Date Type Department Care Team Description 10/09/2024 12:11 AM EDT - 10/10/2024 8:59 PM EDT Hospital Encounter [facility] Department of Medicine [address] [place] [address] Denver Gomez MD Salline, Kirsten A, MD Pathani, Shobhana, MD FUO (fever of unknown origin) (Primary Dx) Discharge Disposition: Left Against Medical Advice (AMA) 10/09/2024 Orders Only [facility] Health Information Management [address] [place] [address] from Last 3 Months Family History Medical History Relation Comments Intellectual Disability Brother Cancer Maternal Grandfather Relation Status Comments Brother Father Alive Maternal Grandfather Mother Alive Social History Tobacco Use Types Packs/Day Years Used Date Smoking Tobacco: Never Smokeless Tobacco: Never Tobacco Cessation:Counseling Given: Not Answered Alcohol Use Standard Drinks/Week Comments Yes 1 (1 standard drink = 0.6 oz pur e alcohol) 2-6 per month recently [facility] Utilities Answer Date Recorded In the past 12 months has th e electric, gas, oil, or water company threatened to shut off services in your home? No 10/09/2024 Humiliation, Afraid, Rape, and Kick questionnair e Answer Date Recorded Within the last year, have y ou been afraid of your partner or ex-partner? No 10/09/2024 Within the last year, have y ou been humiliated or emotionally abused in other ways by your partner or ex-partner? No Within the last year, have y ou been kicked, hit, slapped, or otherwise physically hurt by your partner or ex-partner? No 10/09/2024 Within the last year, have y ou been raped or forced to have any kind of sexual activity by your partner or ex-partner? No 10/09/2024 Overall Financial Resource Strain (CARDIA) Answe r Date Recorded How hard is it for you to pa y for the very basics like food, housing, medical care, and heating? Not hard at all 10/09/2024 PHQ-2 Answer Date Recorded PHQ-2 Score 2 12/26/2022 Hunger Vital Sign Answer Date Recorded Within the past 12 months, y ou worried that your food would run out before you got the money to buy more. Sometimes true Within the past 12 months, t he food you bought just didn't last and you didn't have money to get more. Sometimes true PRAPARE - Transportation Answer Date Re corded In the past 12 months, has l ack of transportation kept you from medical appointments or from getting medications? No 10/09/2024 Lack of Transportation (Non-Medical) Not on file 10/09/2024 Housing Stability Vital Sign Answer Prieto e Recorded Unable to Pay for Housing in the Last Year Not o n file 10/09/2024 Number of Times Moved in the Last Year Not on fi le 10/09/2024 At any time in the past 12 m [facility], were you homeless or living in a longterm (including now)? No 10/09/2024 Sex and Gender Information Value Date Recorded Sex Assigned at Not on file Legal Sex Male 12:12 PM EDT Gender Identity Not on file Sexual Orientation Straight 05/27/2023 6: 17 PM EDT Last Filed Vital Signs Vital Sign Reading Time Taken Comments Blood Pressure 130/81 10/10/2024 7:57 PM EDT Pulse 78 10/10/2024 7:57 PM EDT Temperature 37.7 C (99.8 F) 10/10/2024 7:57 PM EDT Respiratory Rate 16 10/10/2024 7:57 PM EDT Oxygen Saturation 99% 10/10/2024 7:57 PM EDT Inhaled Oxygen Concentration - - Weight 67.8 kg (149 lb 8 oz) 10/09/2024 4:08 AM EDT Height 177.8 cm (5' 10 ) 10/09/2024 12:07 AM EDT Body Mass Index 21.45 10/09/2024 12:07 AM EDT Plan of Treatment Health Maintenance Due Date Last Done Comments HPV Vaccines (1 - Male 3-dos e series) 2014 DTaP,Tdap,and Td Vaccines (1 - Tdap) 2017 Hepatitis C Screening 2017 Hepatitis B Vaccines (1 of 3 - 19+ 3-dose series) 2018 COVID-19 Vaccine (1 - 2023-2 5 season) 2024 Influenza Vaccine (#1) 2024 Zoster Vaccines (1 of 2) 2049 HIV Screening Completed 10/09/2024, 12/23/2022 Hepatitis A Vaccines Aged Out No long er eligible based on patient's age to complete this topic MMR Vaccines Aged Out No longer eligi ble based on patient's age to complete this topic Meningococcal Vaccine Aged Out No diego martha eligible based on patient's age to complete this topic Pneumococcal Vaccine: Pediatrics (0 to 5 Years) and At-Risk Patients (6 to 49 Years) Aged Out No longer eligible b ased on patient's age to complete this topic Procedures Procedure Name Priority Date/Time Associated Diagnosis Comments ECG 12-LEAD Routine 10/10/2024 2:53 PM EDT BASIC METABOLIC PANEL Routine 10/10/2024 6:41 AM EDT COMPLETE BLOOD COUNT (CBC) Routine 10/10/2024 6:41 AM EDT LAURA-CHASE VIRUS ANTIBODY PANEL 1 Routine 10/09/2024 2:01 PM EDT HIV-1 RNA QUANTITATIVE, NAAT Routine 10/09/2024 2:[address] SOFT TISSUE NECK W IV CONTRAST Routine 10/09/2024 1:[address] CHEST W IV CONTRAST Routine 1:23 PM EDT ECG 12-LEAD Routine 10/09/2024 12:38 PM EDT NEISSERIA GONORRHOEAE NAAT (PHARYNGEAL) Routine 10/09/2024 8:58 AM EDT CHLAMYDIA TRACHOMATIS NAAT (PHARYNGEAL) Routine 10/09/2024 8:58 AM EDT NEISSERIA GONORRHOEAE/CHLAMYDIA TRACHOMATIS NAAT (PHARYNGEAL) Routine 10/09/2024 8:58 AM EDT INFECTIOUS MONO SCREEN Routine 7:51 AM EDT BLOOD CULTURE REFLEX GRAM STAIN Routine 10/09/2024 7:49 AM EDT COMPLETE BLOOD COUNT (CBC) Routine 10/09/2024 7:23 AM EDT BASIC METABOLIC PANEL Routine 10/09/2024 7:23 AM EDT BLOOD CULTURE REFLEX GRAM STAIN Routine 10/09/2024 7:23 AM EDT NEISSERIA GONORRHEA NAAT Routine 10/09/2024 5:02 AM EDT CHLAMYDIA TRACHOMATIS NAAT Routine 10/09/2024 5:02 AM EDT NEISSERIA GONORRHOEAE/CHLAMYDIA TRACHOMATIS NAAT Routine 10/09/2024 5:02 AM EDT PARVOVIRUS B19 ABS, IGG AND IGM Routine 10/09/2024 3:04 AM EDT CYTOMEGALOVIRUS ANTIBODIES, IGG AND IGM Routine 10/09/2024 3:04 AM EDT TICK-BORNE DISEASE PANEL BY PCR, BLOOD Routine 10/09/2024 2:06 AM EDT LYME ANTIBODIES, TOTAL W/ REFLEX TO IGM AND IGG BY CLIA (MODIFIED TWO-TIER TESTING) Routine 10/09/2024 2:06 AM EDT POCT RAPID STREP A Routine 10/09/2024 2: 02 AM EDT XR CHEST 2 VW STAT 10/09/2024 1:36 AM EDT SARS, INFLUENZA A, B, AND RSV PCR (CEPHEID) Routine 10/09/2024 1:05 AM EDT THROAT CULTURE Routine 10/09/2024 1:05 AM EDT SYPHILIS SCREEN W/REFLEX TO CONFIRMATION Add-On 10/09/2024 12:35 AM EDT HIV COMBO ANTIGEN/ANTIBODY Add-On 10/09/2024 12:35 AM EDT HIGH SENSITIVITY TROPONIN I STAT Add-on 10/09/2024 12:35 AM EDT COMPLETE BLOOD COUNT WITH AUTO DIFFERENTIAL STAT 10/09/2024 12:35 AM EDT INFECTIOUS MONO SCREEN STAT 12:35 AM EDT LIPASE STAT 10/09/2024 12:35 AM EDT HEPATIC FUNCTION PANEL STAT 12:35 AM EDT BASIC METABOLIC PANEL STAT 10/09/2024 12:35 AM EDT COMPLETE BLOOD COUNT AND DIFFERENTIAL STAT 10/09/2024 12:35 AM EDT NON-MALARIA PARASITE SMEAR (GIEMSA STAIN) Add-On 10/09/2024 12:35 AM EDT ECG 12-LEAD Routine 10/09/2024 12:01 AM EDT from Last 3 Months Results * ECG 12 lead (10/10/2024 2:53 PM EDT) Only the most recent of3 resultswithin the time period is included. 10/10/2024 2:53 PM EDT 10/11/2024 5:59 AM EDT Narrative [facility] ([facility]) - 10/11/2024 5:59 AM EDT Ventricular Rate: 66 BPM Atrial Rate: 66 BPM P-R Interval: 192 ms QRS Duration: 96 ms Q-T Interval: 382 ms QTC Calculation(Bazett): 400 ms P Colgate: 12 degrees R Colgate: 70 degrees T Colgate: 52 degrees Diagnosis: Normal sinus rhythm Normal ECG When compared with ECG of 09-Oct-2024 12:38, No significant change was found Confirmed by Irvin June ([id number]) on 10/10/2024 4:02:49 PM Also confirmed by Irvin June ([id number]), editor managing director Dian Bentley ([id number]) on 10/11/2024 5:59:02 AM Procedure Note Irvin June MD - 10/11/2024 Ventricular Rate: 66 BPM Atrial Rate: 66 BPM P-R Interval: 192 ms QRS Duration: 96 ms Q-T Interval: 382 ms QTC Calculation(Bazett): 400 ms P Colgate: 12 degrees R Colgate: 70 degrees T Colgate: 52 degrees Diagnosis: Normal sinus rhythm Normal ECG When compared with ECG of 09-Oct-2024 12:38, No significant change was found Confirmed by Irvin June ([id number]) on 10/10/2024 4:02:49 PM Also confirmed by Irvin June ([id number]), editor managing director Dian Bentley ([id number])on 10/11/2024 5:59:02 AM us Pat No MD ECG ORDERABLES Final Result [facility] ([place]USE) [place] [address], [place] * (ABNORMAL) Complete blood count (CBC) (10/10/2024 6:41 AM EDT) Only the most recent of2 resultswithin the time period is included. White Cell Count 12.5(H) 3.8 - 10.6 10*3/uL 10/10/2024 7:38 AM EDT [facility] Red Cell Count 4.68 4.40 - 5.90 10*6/ L 10/10/2024 7:38 AM EDT [facility] Hemoglobin 13.9 13.0 - 18.0 g/dL 10/10/2024 7:38 AM EDT [facility] Hematocrit 40.8 40.0 - 52.0 % 10/10/2024 7:38 AM EDT [facility] MCV 87.2 80.0 - 100.0 fL 10/10/2024 7:38 AM EDT [facility] MCH 29.7 26.0 - 34.0 pg 10/10/2024 7:38 AM EDT [facility] MCHC 34.1 32.0 - 36.0 g/dL 10/10/2024 7:38 AM EDT [facility] RBC Distribution Width 11.8 11.6 - 14.8 % 10/10/2024 7:38 AM EDT [facility] Platelet count 256 150 - 440 10*3/uL 10/10/2024 7:38 AM EDT [facility] nRBC 0.0 0.0 - 0.0 % 10/10/2024 7:38 AM EDT [facility] MPV 9.1(L) 9.4 - 12.4 fL 10/10/2024 7:38 AM EDT [facility] Blood Venous blood specimen / Unknown Venipuncture / Unknown 10/10/2024 6:41 AM EDT 10/10/2024 7:10 AM EDT Pat No MD LAB BLOOD ORDERABLES Final R esult [facility] [address] [place] [address], [place] [phone] * Basic metabolic panel (10/10/2024 6:41 AM EDT) Only the most recent of3 resultswithin the time period is included. Sodium 141 137 - 144 mmol/L 10/10/2024 7:45 AM EDT [facility] Potassium 4.3 3.6 - 5.1 mmol/L 10/10/2024 7:45 AM EDT [facility] Chloride 106 100 - 111 mmol/L 10/10/2024 7:45 AM EDT [facility] CO2 26 23 - 32 mmol/L 10/10/2024 7:45 AM EDT [facility] Anion gap 9 3 - 11 mmol/L 10/10/2024 7:45 AM EDT [facility] BUN 13 8 - 24 mg/dL 10/10/2024 7:45 AM EDT [facility] Creatinine 1.10 0.60 - 1.20 mg/dL 10/10/2024 7:45 AM EDT [facility] Glucose 99 70 - 200 mg/dL 10/10/2024 7:45 AM EDT [facility] Comment: Normal fasting glucose 75-99 mg/dL Impaired fasting glucose 100 - 125 mg/dL Fasting glucose >125 mg/dL - provisional diagnosis of diabetes mellitus Random glucose >= 200 mg/dl is considered diagnostic for diabetes ADA Guidelines: Classification and Diagnosis of Diabetes: Standards of Medical Care in Diabetes - 2021, Diabetes Care 202; S15-S33. Calcium 9.0 8.4 - 10.2 mg/dL 10/10/2024 7:45 AM EDT [facility] eGFR 96 >60 mL/min/1. 73m*2 10/10/2024 7:45 AM EDT [facility] Comment: Calculation based on the Chronic Kidney Disease Epidemiology Collaboration (CKD-EPI) equation refit without adjustment for race. Chronic Kidney Disease less than 60 ml/min/1.73 m2 Kidney Failure less than 15 ml/min/1.73 m2 Age (Years) Average GFR 20 - 29 116 ml/min/1.73 m2 30 - 39 107 ml/min/1.73 m2 40 - 49 99 ml/min/1.73 m2 50 - 59 93 ml/min/1.73 m2 60 - 69 85 ml/min/1.73 m2 70 + 75 ml/min/1.73 m2 Pursuant to [place] Public Act 06-120(1)(b)(1). The 2020 CKD-EPI calculation used to estimate eGFR has only been validated for patients 18 years or older. Blood Venous blood specimen / Unknown Venipuncture / Unknown 10/10/2024 6:41 AM EDT 10/10/2024 7:11 AM EDT Pat No MD LAB BLOOD ORDERABLES Final R esult [facility] [address] [place] [address], * HIV-1 RNA, quantitative, NAAT (10/09/2024 2:01 PM EDT) HIV-1 RNA, quantitative, NAAT Not Detected Not Detected copies/mL 10/14/2024 1:48 PM EDT [facility] HIV-1 RNA, quantitative, Log, NAAT Not Detected Not Detected log copies/mL 10/14/2024 1:48 PM EDT [facility] Blood Venous blood specimen / Unknown Venipuncture / Unknown 10/09/2024 2:01 PM EDT 10/09/2024 2:26 PM EDT Narrative [facility] - 10/14/2024 1:48 PM EDT The Aptima HIV-1 Quant assay is an in vitro nucleic acid amplification test (NAAT) for the quantitation of human immunodeficiency virus type 1 (HIV-1) RNA in human plasma from HIV-1 infected individuals on the fully automated App[employer]exus system. The reported result is the number of copies of HIV-1 RNA per mL of human plasma. The assay measurement range is 30-10,000,000 copies/mL; virus detected at lower concentrations cannot be quantified. The assay is intended to be used in conjunction with clinical presentation and other laboratory markers of disease progression for the clinical management of HIV-1 infected patients. Pat No MD LAB BLOOD ORDERABLES NO STAT Final Result [facility] [address] [place] [address], [place] [phone] * (ABNORMAL) Ebstein-Chase virus antibody panel 1 (10/09/2024 2:01 PM EDT) [facility] [address] Laura-Chase VCA IgG 69.7(H) <=17.9 U/mL 10/11/2024 10:28 PM EDT [facility] Comment: INTERPRETIVE INFORMATION: Laura-Chase Virus Antibody to Viral Capsid Antigen, IgG 17.9 U/mL or less.......Not Detected 18.0-21.9 U/mL..........Indeterminate - Repeat testing in 10-14 days may be helpful. 22.0 U/mL or greater....Detected Laura-Chase VCA IgM <10.0 <=35.9 U/mL 10/11/2024 10:28 PM EDT [facility] Comment: INTERPRETIVE INFORMATION: Laura-Chase Virus Antibody to Viral Capsid Antigen, IgM 35.9 U/mL or less.......Not Detected 36.0-43.9 U/mL..........Indeterminate - Repeat testing in 10-14 days may be helpful. 44.0 U/mL or greater....Detected Laura Chase Virus Antibody to Nuclear Antigen, IgG 323.0(H) <=17.9 U/mL 10/11/2024 10:28 PM EDT [facility] Comment: INTERPRETIVE INFORMATION: Laura-Chase Virus Antibody to Nuclear Antigen, IgG 17.9 U/mL or less.......Not Detected 18.0-21.9 U/mL..........Indeterminate - Repeat testing in 10-14 days may be helpful. 22.0 U/mL or greater....Detected EBV EA IgG <5.0 <=8.9 U/mL 10/11/2024 10:28 PM EDT [facility] Comment: INTERPRETIVE INFORMATION: Laura-Chase Virus Antibody to Early D Antigen (EA-D), IgG 8.9 U/mL or less........Not Detected 9.0-10.9 U/mL...........Indeterminate - Repeat testing in 10-14 days may be helpful. 11.0 U/mL or greater....Detected Performed By: [facility] [address] [place] [id number] [employer]: Juan Alberto Chu MD, PhD CLIA Number: [id number] Blood Venous blood specimen / Unknown Venipuncture / Unknown 10/09/2024 2:01 PM EDT 10/09/2024 2:27 PM EDT us Pat No MD LAB BLOOD ORDERABLES NO STAT Final Result [facility] [address] [place] [address] * CT soft tissue neck W iv contrast (10/09/2024 1:24 PM EDT) Anatomical Region Laterality Modality Neck, Head and Neck Computed Gage ography 10/09/2024 1:58 PM EDT Impressions 10/09/2024 3:24 PM EDT No mass or abscess. Enlarged lingual and palatine tonsils with mild cervical lymphadenopathy. Largest lymph node measures 1.7 cm in short axis in right level IIA. Electronic signature on the final report indicates that Deepa Sepulveda MD has personally reviewed this examination initially dictated by Bob Arrington. Reminder to Patients and Legally Authorized Representatives: Language in this report is designed for medical communication with other treating physicians and clinical practitioners. Please speak with your provider(s) about any questions or concerns related to the content of this report. Deepa Sepulveda MD AF^0 Narrative 10/09/2024 3:24 PM EDT EXAM: CT soft tissue neck with contrast; 10/09/2024 1:13 PM. INDICATIONS: Neck mass, nonpulsatile. TECHNIQUE: CT soft tissue neck with contrast was obtained and reconstructed in 3 mm axial images from the skullbase through the aortic arch. Sagittal and coronal reformatted images were performed at the workstation. 100 mL Omnipaque-350 IV contrast was administered to the patient via power injector without complication. COMPARISON: None FINDINGS: Orbits, paranasal sinuses, & skull base: Paranasal sinuses are clear. No significant soft tissue swelling around the orbits. Major salivary glands: Normal. Nasopharynx, oropharynx and oral cavity: Unremarkable. Parapharyngeal & retropharyngeal space: No fluid collection. There is prominence of the lingual and palatine tonsils. Larynx & hypopharynx: Normal. Thyroid: Unremarkable. Lymph nodes: An enlarged right level IIA lymph node measures 2.5 x 1.7 cm. There are additional prominent bilateral level IIA, IIB and III lymph nodes that measure up to 1.2 cm on the right. Vascular structures: Unremarkable. Cervical spine: No acute osseous abnormalities. Procedure Note Deepa Sepulveda MD - 10/09/2024 EXAM: CT soft tissue neck with contrast; 10/09/2024 1:13 PM. INDICATIONS: Neck mass, nonpulsatile. TECHNIQUE: CT soft tissue neck with contrast was obtained andreconstructed in 3 mm axial images from the skullbase through the aorticarch. Sagittal and coronal reformatted images were performed at theworkstation. 100 mL Omnipaque-350 IV contrast was administered to thepatient via power injector without complication. COMPARISON: None FINDINGS: Orbits, paranasal sinuses, & skull base: Paranasal sinuses are clear. Nosignificant soft tissue swelling around the orbits. Major salivary glands: Normal. Nasopharynx, oropharynx and oral cavity: Unremarkable. Parapharyngeal & retropharyngeal space: No fluid collection. There isprominence of the lingual and palatine tonsils. Larynx & hypopharynx: Normal. Thyroid: Unremarkable. Lymph nodes: An enlarged right level IIA lymph node measures 2.5 x 1.7 cm.There are additional prominent bilateral level IIA, IIB and III lymphnodes that measure up to 1.2 cm on the right. Vascular structures: Unremarkable. Cervical spine: No acute osseous abnormalities. IMPRESSION: No mass or abscess. Enlarged lingual and palatine tonsils with mildcervical lymphadenopathy. Largest lymph node measures 1.7 cm in short axisin right level IIA. Electronic signature on the final report indicates that Deepa Sepulveda MD has personally reviewed this examination initially dictated by Ryan. Reminder to Patients and Legally Authorized Representatives: Language in this report is designed for medical communication with othertreating physicians and clinical practitioners. Please speak with your provider(s) about any questions or concernsrelated to the content of this report. Deepa Sepulveda MD AF^0 Pat No MD IMG CT PROCEDURES Final Resu lt * CT chest W iv contrast (10/09/2024 1:23 PM EDT) Anatomical Region Laterality Modality Chest Computed Tomogra phy 10/09/2024 1:26 PM EDT Impressions 10/09/2024 1:38 PM EDT No evidence for intrathoracic infection. Essentially unremarkable chest CT. Reminder to Patients and Legally Authorized Representatives: Language in this report is designed for medical communication with other treating physicians and clinical practitioners. Please speak with your provider(s) about any questions or concerns related to the content of this report. Deepa Sepulveda MD AF^0 Narrative 10/09/2024 1:[address] WITH CONTRAST INDICATION: Fever, sore throat and dizziness TECHNIQUE: Contiguous axial CT images of the chest were obtained from the thoracic inlet to the upper abdomen after administration of 100 mL of the low osmolar contrast agent Omnipaque-350 intravenously via power injector. Coronal and sagittal reformatted images were subsequently performed. Up-to-date CT equipment and radiation dose reduction techniques were employed. CTDI Vol: 5.6 mGy. DLP: 208 mGy-cm. No immediate complications occurred after contrast administration. COMPARISON: No prior chest CT available at this institution . FINDINGS: Please refer to concurrently performed neck CT report for evaluation above the thoracic inlet. A 3 mm septal associated solid nodule in the posterior left lower lobe on image 167, series 3 is favored to represent benign intrapulmonary lymphatic tissue and does not warrant surveillance. Lungs are otherwise clear. The central airways are patent. No pleural effusions are present. No mediastinal, hilar or axillary lymphadenopathy is demonstrated. No significant atherosclerotic changes are present within the normal caliber thoracic aorta. Heart size is within normal limits. No pericardial effusion is observed. Osseous structures are intact. The included portions of the upper abdomen are unremarkable. Procedure Note Deepa Sepulveda MD - 10/09/[address] WITH CONTRAST INDICATION: Fever, sore throat and dizziness TECHNIQUE: Contiguous axial CT images of the chest were obtained from thethoracic inlet to the upper abdomen after administration of 100 mL of thelow osmolar contrast agent Omnipaque-350 intravenously via power injector.Coronal and sagittal reformatted images were subsequently performed. Up-to-date CT equipment and radiation dose reduction techniques wereemployed. CTDI Vol: 5.6 mGy. DLP: 208 mGy-cm. No immediate complications occurred after contrast administration. COMPARISON: No prior chest CT available at this institution . FINDINGS: Please refer to concurrently performed neck CT report for evaluation abovethe thoracic inlet. A 3 mm septal associated solid nodule in the posterior left lower lobe onimage 167, series 3 is favored to represent benign intrapulmonarylymphatic tissue and does not warrant surveillance. Lungs are otherwiseclear. The central airways are patent. No pleural effusions are present. No mediastinal, hilar or axillary lymphadenopathy is demonstrated. No significant atherosclerotic changes are present within the normalcaliber thoracic aorta. Heart size is within normal limits. Nopericardial effusion is observed. Osseous structures are intact. The included portions of the upper abdomen are unremarkable. IMPRESSION: No evidence for intrathoracic infection. Essentially unremarkable chestCT. Reminder to Patients and Legally Authorized Representatives: Language in this report is designed for medical communication with othertreating physicians and clinical practitioners. Please speak with your provider(s) about any questions or concernsrelated to the content of this report. Deepa Sepulveda MD AF^0 Pat No MD IMG CT PROCEDURES Final Resu lt * Neisseria gonorrhoeae NAAT (pharyngeal) (10/09/2024 8:58 AM EDT) Neisseria gonorrhoeae ribosomal RNA Negative Negative 10/10/2024 1:42 PM EDT [facility] Comment:Specimen is presumpt ively negative for Neisseria gonorrhoeae ribosomal RNA (rRNA). A negative result does not preclude the presence of a Neisseria gonorrhoeae infection because results are dependent on adequate specimen collection, absence of inhibitors, and sufficient rRNA to be detected. Swab Pharyngeal structure / Unknown Non-blood Collection / Unknown 10/09/2024 8:58 AM EDT 10/09/2024 9:24 AM EDT Narrative [facility] - 10/10/2024 1:42 PM EDT The Aptima Combo 2 Assay is a second-generation nucleic acid amplification test (NAAT) that utilizes target capture, Head Paper Tester-Mediated Amplification (TMA ), and Dual Kinetic Assay (DKA) technologies for the qualitative detection and differentiation of ribosomal RNA (rRNA) from Chlamydia trachomatis (CT) and / or Neisseria gonorrhoeae (GC). Marina Erwin MD LAB MICRO - GENERAL ORDERAB LES NO STAT Final Result [facility] [address] [place] [address], * Chlamydia trachomatis NAAT (pharyngeal) (10/09/2024 8:58 AM EDT) Chlamydia trachomatis ribosomal RNA Negative Negative 10/10/2024 1:42 PM EDT [facility] Comment:Specimen is presumpt ively negative for Chlamydia trachomatis ribosomal RNA (rRNA). A negative result does not preclude the presence of a Chlamydia trachomatis infection because results are dependent on adequate specimen collection, absence of inhibitors, and sufficient rRNA to be detected. Swab Pharyngeal structure / Unknown Non-blood Collection / Unknown 10/09/2024 8:58 AM EDT 10/09/2024 9:24 AM EDT [facility] - 10/10/2024 1:42 PM EDT The Aptima Combo 2 Assay is a second-generation nucleic acid amplification test (NAAT) that utilizes target capture, Head Paper Tester-Mediated Amplification (TMA ), and Dual Kinetic Assay (DKA) technologies for the qualitative detection and differentiation of ribosomal RNA (rRNA) from Chlamydia trachomatis (CT) and / or Neisseria gonorrhoeae (GC). us Marina Erwin MD LAB MICRO - GENERAL ORDERAB LES NO STAT Final Result Performing Organization Address [facility] Co de Phone Number [facility] [address] [place] [address], [place] [phone] * Infectious mono screen (10/09/2024 7:51 AM EDT) Only the most recent of2 resultswithin the time period is included. Monospot Negative Negative 10/09/2024 9:17 AM EDT [facility] Blood Venous blood specimen / Unknown Venipuncture / Unknown 10/09/2024 7:51 AM EDT 10/09/2024 8:05 AM EDT [facility] - 10/09/2024 9:17 AM EDT The infectious mononucleosis slide test detects heterophile antibodies associated with infectious mononucleosis. Occasionally detectable levels of heterophile antibodies are late in developing in patients symptomatic for infectious mononucleosis. If symptoms persist, the assay should be repeated in 10-14 days and/or Laura-Chase serology should be requested. us Marina Erwin MD LAB BLOOD ORDERABLES Final Result Performing Organization Address [facility] Co de Phone Number [facility] [address] [place] [address], [place] [phone] * Blood culture reflex Gram stain (10/09/2024 7:49 AM EDT) Only the most recent of2 resultswithin the time period is included. Blood Culture No growth at 120 hours 10/14/2024 10:01 AM EDT [facility] Blood Venous blood specimen / Unknown Venipuncture / Unknown 10/09/2024 7:49 AM EDT 10/09/2024 8:01 AM EDT us Marina Erwin MD LAB MICROBIOLOGY - GENERAL ORDERABLES Final Result [facility] [address] [place] [address], * Neisseria gonorrhea NAAT (10/09/2024 5:02 AM EDT) Pathologist [facility] Neisseria gonorrhoeae ribosomal RNA Negative Negative 10/10/2024 1:57 PM EDT [facility] Comment:Specimen is presumpt ively negative for Neisseria gonorrhoeae ribosomal RNA (rRNA). A negative result does not preclude the presence of a Neisseria gonorrhoeae infection because results are dependent on adequate specimen collection, absence of inhibitors, and sufficient rRNA to be detected. Urine Urine specimen / Unknown Non-blood Collection / Unknown 10/09/2024 5:02 AM EDT 10/09/2024 5:24 AM EDT Narrative [facility] - 10/10/2024 1:57 PM EDT The Aptima Combo 2 Assay is a second-generation nucleic acid amplification test (NAAT) that utilizes target capture, Head Paper Tester-Mediated Amplification (TMA ), and Dual Kinetic Assay (DKA) technologies for the qualitative detection and differentiation of ribosomal RNA (rRNA) from Chlamydia trachomatis (CT) and / or Neisseria gonorrhoeae (GC). us Marina Erwin MD LAB MICROBIOLOGY - GENERAL ORDERABLES Final Result [facility] [address] [place] [address], * Chlamydia trachomatis NAAT (10/09/2024 5:02 AM EDT) Pathologist [facility] Chlamydia trachomatis ribosomal RNA Negative Negative 10/10/2024 1:57 PM EDT [facility] Comment:Specimen is presumpt ively negative for Chlamydia trachomatis ribosomal RNA (rRNA). A negative result does not preclude the presence of a Chlamydia trachomatis infection because results are dependent on adequate specimen collection, absence of inhibitors, and sufficient rRNA to be detected. Urine Urine specimen / Unknown Non-blood Collection / Unknown 10/09/2024 5:02 AM EDT 10/09/2024 5:24 AM EDT Narrative [facility] - 10/10/2024 1:57 PM EDT The Aptima Combo 2 Assay is a second-generation nucleic acid amplification test (NAAT) that utilizes target capture, Head Paper Tester-Mediated Amplification (TMA ), and Dual Kinetic Assay (DKA) technologies for the qualitative detection and differentiation of ribosomal RNA (rRNA) from Chlamydia trachomatis (CT) and / or Neisseria gonorrhoeae (GC). us Marina Erwin MD LAB MICROBIOLOGY - GENERAL ORDERABLES Final Result Performing Organization Address [facility] de Phone Number [facility] [address] [place] [address], * Cytomegalovirus Antibodies, IgG and IgM (10/09/2024 3:04 AM EDT) Cytomegalovirus, IgG <0.20 <=0.59 U/mL 10/10/2024 8:38 PM EDT [facility] [employer] Comment: INTERPRETIVE INFORMATION: Cytomegalovirus Antibody, IgG 0.59 U/mL or less......... Not Detected 0.6 - 0.69 U/mL........... Indeterminate-Repeat testing in 10-14 days may be helpful. 0.70 U/mL or greater...... Detected In immunocompromised patients, CMV serology (IgG or IgM antibody titers) may not be reliable and may be misleading in the diagnosis of acute or reactivation CMV disease. The preferred method for diagnosis is culture of virus and/or demonstration of viral antigen in peripheral white cells (buffy coat), bronchoalveolar lavage (BAL) cells, or tissue biopsies. This test should not be used for blood donor screening, associated re-entry protocols, or for screening Human Cell, Tissues and Cellular and Tissue-Based Products (HCT/P). The best evidence for current infection is a significant change on two appropriately timed specimens, where both tests are done in the same laboratory at the same time. Cytomegalovirus, IgM <8.0 <=29.9 AU/mL 10/10/2024 8:38 PM EDT [facility] Comment: INTERPRETIVE INFORMATION: Cytomegalovirus Antibody, IgM 29.9 AU/mL or Less ....... Not Detected 30.0-34.9 AU/mL........... Indeterminate-Repeat testing in 10-14 days may be helpful. 35.0 AU/mL or Greater .... Detected-IgM antibody to CMV detected which may indicate a current or recent infection. However, low levels of IgM antibodies may occasionally persist for more than 12 months post-infection. A negative result does not rule out primary infection, please correlate clinically. CMV serology is not useful for the evaluation of active or reactivated infection in immunocompromised patients. Molecular diagnostic tests (i.e. PCR)are preferred in these cases. This test should not be used for blood donor screening, associated re-entry protocols, or for screening Human Cell, Tissues and Cellular and Tissue-Based Products (HCT/P). Performed By: [facility] [address] [place] [address] Director Correctional Agency: Juan Alberto Chu MD, PhD CLIA Number: [id number] Blood Venous blood specimen / Unknown Venipuncture / Unknown 10/09/2024 3:04 AM EDT 10/09/2024 3:10 AM EDT us Denver Gomez MD LAB BLOOD ORDERABLES NO ST AT Final Result [facility] [address] [place] [address] * Parvovirus B19 abs, IgG and IgM (10/09/2024 3:04 AM EDT) [facility] [address] Parvovirus B19 IgG 0.58 <=0.90 IV 10/10/2024 3:50 PM EDT [facility] Comment: INTERPRETIVE INFORMATION: Parvovirus B19 Antibody, IgG 0.90 IV or less .......... Negative - No significant level of detectable Parvovirus B19 IgG antibody. 0.91 - 1.09 IV ........... Equivocal - Repeat testing in 7-21 days may be helpful. 1.10 IV or greater ....... Positive - IgG antibody to Parvovirus B19 detected which may indicate a current or past infection. The best evidence for current infection is a significant change on two appropriately timed specimens, where both tests are done in the same laboratory at the same time. Parvovirus B19 IgM 0.49 <=0.89 IV 10/10/2024 3:50 PM EDT [facility] Comment: INTERPRETIVE INFORMATION: Parvovirus B19 Antibody, IgM 0.89 IV or less .......... Negative - No significant level of detectable Parvovirus B19 IgM antibody. 0.90 - 1.10 IV ........... Equivocal - Repeat testing in 7-21 days may be helpful. 1.11 IV or greater ........ Positive - IgM antibody to Parvovirus B19 detected which may indicate a current or recent infection. However, low levels of IgM antibodies may occasionally persist for more than 12 months post-infection. The best evidence for current infection is a significant change on two appropriately timed specimens, where both tests are done in the same laboratory at the same time. Appearance of an IgM antibody response normally occurs 7 to 14 days after the onset of disease. Testing immediately post-exposure is of no value without a later convalescent specimen. A residual IgM response may be distinguished from early IgM response to infection by testing sera from patients three to four weeks later for changing levels of specific IgM antibodies. Performed By: [facility] [address] [place] [address] Director Correctional Agency: Juan Alberto Chu MD, PhD CLIA Number: [id number] Blood Venous blood specimen / Unknown Venipuncture / Unknown 10/09/2024 3:04 AM EDT 10/09/2024 3:10 AM EDT Denver Gomez MD LAB BLOOD ORDERABLES NO ST AT Final Result [address] [address] * Tick-Borne Disease Panel by PCR, Blood (10/09/2024 2:06 AM EDT) Pathologist [facility] Anaplasma Phagocytophilum by PCR Not Detected 10/12/2024 7:02 AM EDT [facility] Ehrlichia Chaffeensis BY PCR Not Detected 10/12/2024 7:02 AM EDT [facility] Ehrlichia ewingii/canis by PCR Not Detected 10/12/2024 7:02 AM EDT [facility] Ehrlichia muris-like by PCR Not Detected 10/12/2024 7:02 AM EDT [facility] Comment: INTERPRETIVE INFORMATION: Ehrlichia and Anaplasma Species by PCR A negative result does not rule out the presence of PCR inhibitors in the patient specimen or test-specific nucleic acid in concentrations below the level of detection by this assay. This test was developed and its performance characteristics determined by [facility]. It has not been cleared or approved by the [place] Food and Drug Administration. This test was performed in a CLIA certified laboratory and is intended for clinical purposes. Performed By: [address] [address] Director Correctional Agency: Juan Alberto Chu MD, PhD CLIA Number: [id number] Babesia species by PCR Not Detected 10/12/2024 7:02 AM EDT [facility] Babesia Microti by PCR Not Detected 10/12/2024 7:02 AM EDT [facility] [employer] Comment: INTERPRETIVE INFORMATION: Babesia Species by PCR A negative result does not rule out the presence of PCR inhibitors in the patient specimen or test-specific nucleic acid in concentrations below the level of detection by this test. This test was developed and its performance characteristics determined by [facility]. It has not been cleared or approved by the [place] Food and Drug Administration. This test was performed in a CLIA certified laboratory and is intended for clinical purposes. Blood Venous blood specimen / Unknown Venipuncture / Unknown 10/09/2024 2:06 AM EDT 10/09/2024 2:47 AM EDT us Anny E[facility]IOTT LAB BLOOD ORDERABLES NO STAT Final Result [address] [address] * Lyme Antibodies, Total w/ Reflex to IgM and IgG by CLIA (Modified Two-Tier Testing) (10/09/2024 2:06 AM EDT) Lyme Ab, total by CLIA 0.09 <0.90 Index 10/11/2024 1:01 PM EDT [facility] Comment: Reference Interval: B. burgdorferi Antibodies, Total by CLIA Index Value Interpretation < 0.90 Index Negative for Ab to B. Burgdorferi. Test will not reflex to tier 2 >=0.90 - <1.00 Index Equivocal Test reflexed to tier 2 >=1.0 Index Positive Test reflexed to tier 2 Lyme Ab, Total by CLIA Interpretation Negative Negative 10/11/2024 1:01 PM EDT [facility] Comment:Negative for antibod ies to B. burgdorferi. Blood Venous blood specimen / Unknown Venipuncture / Unknown 10/09/2024 2:06 AM EDT 10/09/2024 2:47 AM EDT us Anny ELLIOTT LAB BLOOD ORDERABLES NO STAT Final Result [facility] [address] [place] [address], [place] [phone] * POCT rapid strep A (10/09/2024 2:02 AM EDT) [facility] [address] Rapid Strep A Screen Negative Lot Number [id number] Test Device Exp. Date 2025-10-23 Internal Control Pass (Y/N) Yes Swab 10/09/2024 2:02 AM EDT us Anny E[facility]IOTT POINT OF CARE TEST ORDERABLES Final Result * XR chest 2 vw (10/09/2024 1:36 AM EDT) Anatomical Region Laterality Modality Chest Computed Radiogr aphy 10/09/2024 5:01 AM EDT Impressions 10/09/2024 5:02 AM EDT Normal chest radiograph Reminder to Patients and Legally Authorized Representatives: Language in this report is designed for medical communication with other treating physicians and clinical practitioners. Please speak with your provider(s) about any questions or concerns related to the content of this report. Deepa Sepulveda MD AF^0 Narrative 10/09/2024 5:02 AM EDT CHEST RADIOGRAPH: PA and lateral views. INDICATION: Fever, sore throat, dizziness COMPARISON: No prior radiograph available at this institution . FINDINGS: The lungs are clear. No pleural effusion or pneumothorax is demonstrated. The cardiomediastinal silhouette is within normal limits. The osseous structures are unremarkable. Procedure Note Deepa Sepulveda MD - 10/09/2024 CHEST RADIOGRAPH: PA and lateral views. INDICATION: Fever, sore throat, dizziness COMPARISON: No prior radiograph available at this institution . FINDINGS: The lungs are clear. No pleural effusion or pneumothorax is demonstrated.The cardiomediastinal silhouette is within normal limits. The osseousstructures are unremarkable. IMPRESSION: Normal chest radiograph Reminder to Patients and Legally Authorized Representatives: Language in this report is designed for medical communication with othertreating physicians and clinical practitioners. Please speak with your provider(s) about any questions or concernsrelated to the content of this report. Deepa Sepulveda MD AF^0 Marina Erwin MD IMG XR PROCEDURES Final Res ult * SARS, Influenza A,B, and RSV PCR (CEPFeedbooksID) (10/09/2024 1:05 AM EDT) [facility] SARS-COV-2 PCR (CepArray Stormid) Negative Negative 10/09/2024 2:42 AM EDT [facility] Influenza A PCR (Cepheid) Not Detected Not Detected 10/09/2024 2:42 AM EDT [facility] Influenza B PCR (Cepheid) Not Detected Not Detected 10/09/2024 2:42 AM EDT [facility] RSV PCR (CepArray Stormid) Not Detected Not Detected 10/09/2024 2:42 AM EDT [facility] Swab Nasopharyngeal structure / Unknown Non-blood Collection / Unknown 10/09/2024 1:05 AM EDT 10/09/2024 1:09 AM EDT Narrative [facility] - 10/09/2024 2:42 AM EDT The Integral Ad Scienceid Flu A/B/RSV/SARS CoV-2 assay performed on the GeneXpert System is a multiplex real-time RT-PCR intended for the qualitative detection and differentiation of influenza A, influenza B, RSV, and SARS CoV-2 RNA in nasopharyngeal or anterior nasal swab specimens from patients exhibiting signs/symptoms of respiratory viral illness. The test is FDA-cleared, and its performance was verified by [facility]. A negative/not detected result does not exclude viral infection and should not be used as the sole basis for treatment or patient management decisions. Results must be considered in the context of clinical observations, patient history, and epidemiological information. us Anny [facility] LAB MICRO - GENERAL ORDERABLE S NO STAT Final Result Performing Organization Address City/[facility]/ZIP Co de Phone Number [facility] [address] [place] [address], [place] [phone] * Throat culture (10/09/2024 1:05 AM EDT) [facility] Throat Culture Normal oral ana 10/11/2024 9:38 AM EDT [facility] Swab Pharyngeal structure / Unknown Non-blood Collection / Unknown 10/09/2024 1:05 AM EDT 10/09/2024 1:09 AM EDT [facility] LAB MICROBIOLOGY - GENERAL OR DERABLES Final Result Performing Organization Address [facility] Co de Phone Number [facility] [address] [place] [address], [place] [phone] * High Sensitivity Troponin I (10/09/2024 12:35 AM EDT) [facility] [address] [facility] high sensitivity Troponin I <3 <=35 ng/L 10/09/2024 1:23 AM EDT [facility] Comment:Clinical presentatio n reference range <= 5 ng/L Blood Venous blood specimen / Unknown Venipuncture / Unknown 10/09/2024 12:35 AM EDT 10/09/2024 12:45 AM EDT us Anny E[facility] LAB BLOOD ORDERABLES Final Re sult Performing Organization Address [facility] Co de Phone Number [facility] [address] [place] [address], [place] [phone] * Non-Malaria Parasite Smear (10/09/2024 12:35 AM EDT) Interpretation No blood parasites seen No blood parasites seen 10/09/2024 7:27 AM EDT [facility] Blood Venous blood specimen / Unknown Venipuncture / Unknown 10/09/2024 12:35 AM EDT 10/09/2024 12:45 AM EDT [facility] LAB MICROBIOLOGY - GENERAL OR DERABLES Final Result [facility] [address] [place] [address], * Syphilis Screen w/Reflex to Confirmation (10/09/2024 12:35 AM EDT) [facility] Syphilis Screen Nonreactive Nonreactive 10/09/2024 4:51 AM EDT [facility] Blood Venous blood specimen / Unknown Venipuncture / Unknown 10/09/2024 12:35 AM EDT 10/09/2024 12:44 AM EDT Marina Erwin MD LAB BLOOD ORDERABLES Final Result Performing Organization Address City/[facility]/ZIP Co de Phone Number [facility] [address] [place] [address], * HIV combo antigen/antibody (10/09/2024 12:35 AM EDT) [facility] HIV Combo AB/AG Negative Negative 4:51 AM EDT [facility] Comment: All HIV-negative individuals are eligible for HIV PrEP (Pre-Exposure Prophylaxis), a safe and effective medication to prevent HIV infection. Talk to your [facility] Provider about PrEP, or contact the [facility] PrEP Navigator Mabel Mckeon at [phone]. Blood Venous blood specimen / Unknown Venipuncture / Unknown 10/09/2024 12:35 AM EDT 10/09/2024 12:44 AM EDT Narrative [facility] - 10/09/2024 4:51 AM EDT This test is a 4th generation HIV Antigen-Antibody Combination assay, using a chemiluminescent microparticle immunoassay, for the simultaneous qualitative detection of human immuno- deficiency virus (HIV) p24 antigen and antibodies to HIV type 1 (HIV-1) and/or HIV type 2 (HIV-2) in human serum or plasma. The Easy-Point HIV Ag/Ab Combo assay is intended to be used as an aid in the diagnosis of HIV-1 and/or HIV-2 infection, including acute or primary HIV-1 infection. Initially-positive tests are repeated in duplicate. Repeat-positive tests will be confirmed for HIV by a HIV-1/HIV-2 rapid supplemental/ differentiation antibody assay. This testing algorithm is in line with the current CDC recommendations. us Marina Erwin MD LAB BLOOD ORDERABLES NO STA T Final Result [facility] [address] [place] [address], * (ABNORMAL) Complete Blood Count with Auto Differential (10/09/2024 12:35 AM EDT) [facility] Signature White Cell Count 13.0(H) 3.8 - 10.6 10*3/uL 10/09/2024 12:52 AM EDT [facility] Red Cell Count 4.51 4.40 - 5.90 10*6/ L 10/09/2024 12:52 AM EDT [facility] Hemoglobin 13.6 13.0 - 18.0 g/dL 10/09/2024 12:52 AM EDT [facility] Hematocrit 38.6(L) 40.0 - 52.0 % 10/09/2024 12:52 AM EDT [facility] MCV 85.6 80.0 - 100.0 fL 10/09/2024 12:52 AM EDT [facility] MCH 30.2 26.0 - 34.0 pg 10/09/2024 12:52 AM [facility] MCHC 35.2 32.0 - 36.0 g/dL 10/09/2024 12:52 AM [facility] RBC Distribution Width 11.8 11.6 - 14.8 % 10/09/2024 12:52 AM [facility] Platelet count 258 150 - 440 10*3/uL 10/09/2024 12:52 AM EDT [facility] Neutrophils 84.5(H) 40.0 - 70.0 % 10/09/2024 12:52 AM [facility] Immature Granulocytes 0.5 0.0 - 0.6 % 10/09/2024 12:52 AM [facility] Lymphocytes 6.5(L) 20.0 - 50.0 % 10/09/2024 12:52 AM [facility] Monocytes 8.2 4.0 - 12.0 % 10/09/2024 12:52 AM EDT [facility] Eosinophils 0.1 0.0 - 6.0 % 10/09/2024 12:52 AM [facility] Basophils 0.2 0.0 - 2.0 % 10/09/2024 12:52 AM [facility] Absolute Neutrophil Ct. 10.98(H) 1.40 - 6.30 10*3/uL 10/09/2024 12:52 AM EDT [facility] Absolute Lymphocyte Ct. 0.85 0.70 - 4.50 10*3/uL 10/09/2024 12:[facility] Monocyte Ct. 1.06(H) 0.20 - 0.80 10*3/uL 10/09/2024 12:52 AM [facility] Absolute Eosinophil Ct. 0.01 0.00 - 0.30 10*3/uL 10/09/2024 12:52 AM EDT [facility] Absolute Basophil Ct. 0.03 0.00 - 0.20 10*3/uL 10/09/2024 12:52 AM EDT [facility] nRBC 0.0 0.0 - 0.0 % 10/09/2024 12:52 AM EDT [facility] MPV 9.1(L) 9.4 - 12.4 fL 10/09/2024 12:52 AM EDT [facility] Absolute immature granulocytes 0.06 10*3/uL 10/09/2024 12:52 AM EDT [facility] Blood Venous blood specimen / Unknown Venipuncture / Unknown 10/09/2024 12:35 AM EDT 10/09/2024 12:45 AM EDT Anny [facility] LAB BLOOD ORDERABLES Final Re sult Performing Organization Address City/[facility]/ZIP Co de Phone Number [facility] [address] [place] [address], * Lipase (10/09/2024 12:35 AM EDT) Lipase 22 8 - 51 U/L 10/09/2024 1:16 AM EDT [facility] Blood Venous blood specimen / Unknown Venipuncture / Unknown 10/09/2024 12:35 AM EDT 10/09/2024 12:44 AM EDT Anny ELLIOTT LAB BLOOD ORDERABLES Final Re sult [facility] [address] [place] [address], [place] [phone] * Hepatic function panel (10/09/2024 12:35 AM EDT) Total Bilirubin 0.5 0.1 - 1.2 mg/dL 10/09/2024 1:10 AM EDT [facility] Bilirubin, Direct 0.2 0.0 - 0.5 mg/dL 10/09/2024 1:10 AM EDT [facility] Alkaline Phosphatase 63 39 - 113 U/L 10/09/2024 1:10 AM EDT [facility] AST 28 8 - 45 U/L 10/09/2024 1:10 AM EDT [facility] ALT (SGPT) 20 <=42 U/L 10/09/2024 1:10 AM EDT [facility] Albumin 4.7 3.8 - 5.3 g/dL 10/09/2024 1:10 AM EDT [facility] Total Protein 7.6 6.2 - 8.1 g/dL 10/09/2024 1:10 AM EDT [facility] Blood Venous blood specimen / Unknown Venipuncture / Unknown 10/09/2024 12:35 AM EDT 10/09/2024 12:45 AM EDT us Anny ELLIOTT LAB BLOOD ORDERABLES Final Re sult [facility] [address] [place] [address], [place] [phone] from Last 3 Months Insurance MEDICAID HUSKY D ANTHEM - OUT OF STATE Advance Directives For more information, please contact: [phone] * Full Code (Latest Code Status on File) Date Activated Date Inactivated Comments 10/09/2024 4:15 AM 10/10/2024 10:59 PM * Full Code Date Activated Date Inactivated Comments 10/09/2024 2:51 AM 10/09/2024 4:15 AM Care Teams Molder Pipe Covering Relationship Specialty Start Date End Date Kristen Horta MD [address] [place] [address] PCP - General Internal Medicine 10/07/24
--- OUTSIDE RECORDS SUMMARY | 2024-11-30 18:04 | XMS_ITS | Clinical Summary ---
Author Organization [facility] Address [facility] [employer] [facility] [address] [place] [address] Phone Care Team Providers Care Home Theater Specialist Name Role Phone Mateo Alfred MD Primary Care Provider [phone] Allergies Active Allergy Reactions Criticality Noted Date Comments Apple 05/07/2022 Mouth swelling and itching Pollen Extracts 08/03/2018 Venlafaxine Anaphylaxis,Hives,It chin g,Swelling High 03/26/2022 Medications escitalopram oxalate (LEXAPRO) 10 MG tablet Take 10 mg by mouth daily. Active Active Problems Problem Noted Date Diagnosed Date Gastroesophageal reflux dise ase with esophagitis without hemorrhage 03/27/2022 Assessment & Plan (03/27/2022 8:08 PM EST): Add nizatadine, based on insurance formulary, for symptomatic GERD avoid triggers. Reassess if worsening or no better. 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 Ritchie, seeing Dr. Osorio for oral migrain therapy. Immunizations No known immunizations Social History Tobacco Use Types Packs/Day Years Used Date Smoking Tobacco: Never Smokeless Tobacco: Never Tobacco Cessation:Counseling Given: Not Answered Alcohol Use Standard Drinks/Week Comments Yes 0 (1 standard drink = 0.6 oz pur e alcohol) 1-2 per month Child or Family Care Answer Date Record ed Do you have problems with on e of the following making it difficult for you to work, study, or receive health care? No 03/25/2022 Education Answer Date Recorded Are you interested in more education? Not on caroline e 03/26/2024 Are you concerned about learning? Not on file 03/26/2024 No 03/26/2024 No 03/26/2024 Food Answer Date Recorded Within the past [...] have you moved in the past 12 fri? Two or more times 03/25/2022 Paying for [...] basis, and looking for work? No 03/25/2022 Digital Access Answer Date Recorded No 08/09/2022 No 08/09/2022 No 08/09/2022 Reliable internet access at home? Not on file 08/09/2022 Device with a working camera? Not on file Intimate Partner Violence Answer Date R ecorded [...] Sign Reading Time Taken Comments Blood Pressure 112/72 08/12/2022 4:05 PM EDT Pulse 69 08/12/2022 4:05 PM EDT Temperature 36.8 C (98.3 F) 08/12/2022 4:05 PM EDT Respiratory Rate 16 08/12/2022 4:05 PM EDT Oxygen Saturation 97% 08/12/2022 4:05 PM EDT Inhaled Oxygen Concentration - - Weight 65.8 kg (145 lb) 08/12/2022 4:05 PM EDT Height 177.8 cm (5' 10 ) 08/12/2022 4:05 PM EDT Body Mass Index 20.81 08/12/2022 4:05 PM EDT Plan of Treatment Health Maintenance Due Date Last Done Comments Adult Td,Tdap Booster 1999 SMOKING Hx and SMOKELESS TOBACCO SCREENING 2012 HPV VACCINES (1 - Male 3-dos e series) 2014 HEPATITIS C SCREENING 2017 HIV ONE-TIME SCREENING (18-6 5 YEARS) 2017 DEPRESSION SCREENING 07/25/2023 07/24/2022, 07/24/2022 INFLUENZA VACCINE (#1) 2024 COVID-19 VACCINE (1 - 2023-2 5 season) 2024 HEPATITIS A VACCINES Aged Out No long er eligible based on patient's age to complete this topic HIB VACCINES Aged Out No longer eligi ble based on patient's age to complete this topic MENINGOCOCCAL VACCINES (ACWY) Aged Out No longer eligible based on patient's age to complete this topic MENINGOCOCCAL VACCINES (B) Aged Out N o longer eligible based on patient's age to complete this topic PNEUMOCOCCAL VACCINES (0-49 years) Aged Out No longer eligible b ased on patient's age to complete this topic Medical Devices Not on file Insurance [facility] PPO [facility] PPO [facility] PPO [facility] PPO [facility] PPO [facility] PPO Advance Directives For more information, please contact: [phone] (9AM - 5PM [facility], Friday-Friday) * Full Code (Latest Code Status on File) Date Activated Date Inactivated Comments 05/14/2022 6:10 AM Question Answer Comments Code Status Confirmed With: Patient Care Teams Home Theater Specialist Relationship Specialty Start Date End Date Mateo Alfred MD [address] [place] [address], [address] [address] [email or web address] PCP - General Internal Medicine 08/13/24 Additional Source Comments The information contained in this document represents components of the legal health record. It is not the complete legal health record.[facility]
--- OUTSIDE RECORDS SUMMARY | 2024-11-30 18:04 | XMS_ITS | Encounter Summary ---
Author Organization [facility] Address [address] [place] [address] Care Team Providers Care Dog Bather Name Role Phone Pcp, No Primary Care Provider Kathleen Mcghee DO Primary Care Provider [phone] Encounter Details Date Type Department Care Team (Late st Contact Info) Description 10/05/2024 Scanned Document [address] [facility] [address] [place] [phone] Provider, Generic Social History Tobacco Use Types Packs/Day Years Used Date Smoking Tobacco: Never Assessed Sex and Gender Information Value Date Recorded Sex Assigned at Not on file Legal Sex Male 6:02 PM EDT Gender Identity Not on file Sexual Orientation Not on file documented as of this encounter Plan of Treatment Upcoming Encounters Date Type Department Care Team (Late st Contact Info) Description 12/28/2024 3:15 PM EDT Office Visit [facility] [address] [place] [address] Sandeep Amos MD [address] [place], [place] [phone] 10/21/2025 2:00 PM EDT Office Visit [address] [phone] Kathleen Hemphill DO [address] [place] [address] documented as of this encounter Visit Diagnoses Not on filedocumented in this encounter Care Teams Dog Bather Relationship Specialty Start Date End Date Pcp, No PCP - General General Medicine 10/05/24 10/18/24 Kathleen Hemphill DO [address] [facility] [address] [place] [address] PCP - General Family Medicine 10/19/24 documented as of this encounter
--- OUTSIDE RECORDS SUMMARY | 2024-11-30 18:04 | XMS_ITS | Encounter Summary ---
Author Organization [facility] Address [address] [place] [id number] Phone Care Team Providers Care Comb Machine Operator Name Role Phone Mateo Alfred MD Primary Care Provider [phone] Mateo Alfred MD Unavailable [phone] Mateo Alfred MD Primary Care Provider [phone] Encounter Details Date Type Department Care Team (Late st Contact Info) Description 05/14/2022 Procedure Pass OR Admitting Dept - Virtual Department [address] [place] [address] Social History Tobacco Use Types Packs/Day Years [...] high school, GED, job training, learning the [place] language, technical skills, or developing parenting skills)? [...] your housing situation today? I have luis winkler 03/25/2022 How many times have you moved [...] Diagnoses Not on filedocumented in this encounter Additional Health Concerns Assessment Noted Time PHQ-9 Depression Total Score: 12 023 12:59 PM EST PHQ-2 Depression Total Score: 4 04/25/19 23 12:59 PM EST documented as of this encounter Care Teams Comb Machine Operator Relationship Specialty Start Date End Date Mateo Alfred MD [address] [place] [address], [address] [place] [address] PCP - General Internal Medicine 12/22/21 08/09/24 Mateo Alfred MD [address] [place] [address], [address] [place] [address] [email or web address] PCP - General Internal Medicine 08/13/24 Mateo Alfred MD [address] [facility], [address] [place] [address] [email or web address] Insurance Assigned Provider 07/20/22 01/25/23 documented as of this encounter Additional Source Comments The information contained in this document represents components of the legal health record. It is not the complete legal health record.[facility]
--- OUTSIDE RECORDS SUMMARY | 2024-11-30 18:04 | XMS_ITS | Clinical Summary ---
Author Organization [facility] Address [address] [place] [address] Care Team Providers Care Board Mixer Tender Name Role Phone Kathleen Hemphill DO Primary Care Provider [phone] Allergies Active Allergy Reactions Criticality Noted Date Comments Apple Hives Medium 05/07/2022 Mouth swelling and itching Ethinyl Estradiol Cough Low 08/03/2018 Pollen Extract Fever Low 08/03/2018 Venlafaxine Anaphylaxis,Hives,It chi ng,Shortness Of Breath,Swelling High 03/26/2022 Medications mirtazapine (REMERON) 30 MG tablet Take 1 tablet (30 mg total) by mouth nightly. 5 Active fluticasone (FloNASE) 50 mcg/spray nasal sprayIndications:R ecurrent streptococcal tonsillitis,Recurr ent sinusitis 1 spray into each nostril daily. 1 each 5 Active levocetirizine (XYZAL) 5 MG tabletIndications: Recurrent streptococcal tonsillitis,Recurr ent sinusitis Take 1 tablet (5 mg total) by mouth every evening. 90 tablet 5 01/18/20 25 Active amoxicillin-clavul anate (AUGMENTIN) 875-125 MG per tabletIndications: Tonsillitis Take 1 tablet by mouth 2 (two) times a day. 28 tablet 5 12/04/19 25 Active Active Problems Problem Noted Date Diagnosed Date Recurrent infections 11/18/2024 Postnasal drip 12/31/2022 Encounters Date Type Department Care Team Description 11/19/2024 Orders Only [facility] [address] [place] [phone] Sandeep Amos MD Tonsillitis (Primary Dx) 11/18/2024 2:00 PM EDT Office Visit [facility] [place] [address] [facility] [address] [place] [address] Po Regalado MD Recurrent infections (Primary Dx); Fever of unknown origin (FUO) 11/16/2024 3:00 PM EDT Office Visit [facility] [address] [place] [address] Sandeep Amos MD Sore throat (Primary Dx); Hypertrophy of tonsils; Fever, unspecified fever cause 10/19/2024 2:00 PM EDT Office Visit [address] [phone] Kathleen Hemphill DO Annual physical exam (Primary Dx); Recurrent streptococcal tonsillitis; Thyroid disorder screen; Lipid screening; Recurrent sinusitis; Diabetes mellitus screening; Recurrent fever 10/19/2024 Travel 10/07/2024 8:15 PM EDT Telemedicine [facility] [address] [place] [phone] Hillary Aguirre PA-C Strep pharyngitis with scarlet fever (Primary Dx) 10/05/2024 Scanned Document [address] [place] [phone] Provider, Generic from Last 3 Months Family History Medical History Relation Name Comments Autism Brother Relation Name Status Comments Brother Alive Father Alive Maternal Grandfather Other Maternal Grandmother Other Mother Alive Social History Tobacco Use Types Packs/Day Years Used Date Smoking Tobacco: Never Smokeless Tobacco: Never Tobacco Cessation:Counseling Given: Not Answered Alcohol Use Standard Drinks/Week Comments Yes 0 (1 standard drink = 0.6 oz pur e alcohol) [facility] Utilities Answer Date Recorded In the past 12 months has [employer] gas, oil, or water [employer] threatened to shut off services in your home? No 10/18/2024 Social Connection and Isolat ion Panel [NHANES] Answer Date Recorded In a typical week, how many times do you talk on the phone with family, friends, or neighbors? More than three times a week 10/18/2024 Frequency of Social Gatherin gs with Friends and Family Not on file 10/18/2024 Attends Temple Services Not on file 10/18 Active Member of Clubs or Organizations Not on f ile 10/18/2024 Attends Club or Organization Meetings Not on caroline e 10/18/2024 Marital Status Not on file 10/18/2024 AUDIT-C Answer Date Recorded Q1: How often do you have a drink containing alc ohol? 2-4 times a month 10/18/2024 Q2: How many drinks containi ng alcohol do you have on a typical day when you are drinking? 1 or 2 10/18/2024 Frequency of Binge Drinking Not on file 06/2024 PHQ-2 Answer Date Recorded PHQ-2 Total Score 0 10/18/2024 Hunger Vital Sign Answer Date Recorded Within the past 12 months, y ou worried that your food would run out before you got the money to buy more. Never true 10/19/19 25 Within the past 12 months, t he food you bought just didn't last and you didn't have money to get more. Never true 10/18/2024 PRAPARE - Transportation Answer Date Re corded In the past 12 months, has l ack of transportation kept you from medical appointments or from getting medications? No 06/2024 In the past 12 months, has l ack of transportation kept you from meetings, work, or from getting things needed for daily living? No 10/18/2024 Housing Stability Vital Sign Answer Prieto e Recorded In the last 12 months, was t here a time when you were not able to pay the mortgage or rent on time? No 10/18/2024 In the past 12 months, how m any times have you moved where you were living? 0 10/18/2024 At any time in the past 12 m [facility], were you homeless or living in a half-way (including now)? No 10/18/2024 Physical Activity Answer Date Recorded On average, how many days pe r week do you engage in moderate to strenuous exercise (like a brisk walk)? 3 days 10/18/2024 On average, how many minutes do you exercise per day at this level? 60 min 10/18/2024 Education Answer Date Recorded What is the highest level of school you have completed or the highest degree you have received? Professional school degree (e.g., , DDS, DVM, IMELDA) 10/18/2024 Sex and Gender Information Value Date Recorded Sex Assigned at Not on file Legal Sex Male 6:02 PM EDT Gender Identity Not on file Sexual Orientation Not on file Last Filed Vital Signs Vital Sign Reading Time Taken Comments Blood Pressure 122/79 10/19/2024 2:03 PM EDT Pulse 78 10/19/2024 2:03 PM EDT Temperature 35.9 C (96.7 F) 10/19/2024 2:03 PM EDT Respiratory Rate - - Oxygen Saturation 97% 10/19/2024 2:03 PM EDT Inhaled Oxygen Concentration - - Weight 65.8 kg (145 lb) 11/18/2024 2:01 PM EDT Height 177.8 cm (5' 10 ) 11/18/2024 2:01 PM EDT Body Mass Index 20.81 11/18/2024 2:01 PM EDT Plan of Treatment Upcoming Encounters Date Type Department Care Team (Late st Contact Info) Description 12/28/2024 3:15 PM EDT Office Visit [facility] [place] [address] [place] [phone] Sandeep Amos MD [address] [place], [place] [phone] 10/21/2025 2:00 PM EDT Office Visit [facility] [address] [place] [address] Kathleen Hemphill, [address] [address] Health Maintenance Due Date Last Done Comments Hepatitis C Virus Screening 1999 HPV Vaccines (1 - Male 3-dos e series) 2014 DTaP/Tdap/Td Vaccines (1 - Tdap) 2018 Hepatitis B Vaccines (1 of 3 - 19+ 3-dose series) 2018 Influenza Vaccine 10/15/2024 COVID-19 Vaccine (1 - 2023-2 5 season) 2024 Physical 10/20/2027 10/19/2024 HIV Screening Completed 10/09/2024, 10/09/2024, 12/23/2022 Pneumococcal Vaccine: Pediatric (0-5 Years) and At-Risk Patients (6 to 49 Years) Aged Out No longer eligible b ased on patient's age to complete this topic Procedures Procedure Name Priority Date/Time Associated Diagnosis Comments STREPTOCOCCUS PNEUMONIAE AB, IGG (23 SEROTYPES) MAID Routine 11/18/2024 3:20 PM EDT HAEMOPHILUS INFLUENZA TYPE B AB, IGG Routine 11/18/2024 3:20 PM EDT Recurrent infections ANCA SCREEN, REFLEX TITER Routine 11/18/2024 3:20 PM EDT Recurrent infections NEUTROPHIL FUNCTION, OXIDATIVE BURST Routine 11/18/2024 3:20 PM EDT Recurrent infections COMPLEMENT, TOTAL (CH50) Routine 11/18/2024 3:20 PM EDT Recurrent infections LYMPHOCYTE SUBSETS Routine 11/18/2024 3: 20 PM EDT Recurrent infections IMMUNOGLOBULINS, QUANTITATIVE (GABY) Routine 11/18/2024 3:20 PM EDT Recurrent infections DIPHTHERIA ANTITOXOID ANTIBODY Routine 11/18/2024 3:20 PM EDT Recurrent infections COMPLETE BLOOD COUNT, WITH DIFFERENTIAL Routine 11/18/2024 3:20 PM EDT Recurrent infections THROAT CULTURE (GROUP A, C AND G STREP) Routine 11/16/2024 3:41 PM EDT CULTURE, AEROBIC AND ANAEROBIC W/GRAM STAIN Routine 11/16/2024 3:41 PM EDT Sore throat Hypertrophy of tonsils Fever, unspecified fever cause from Last 3 Months Results * Streptococcus pneumoniae AB, IgG (23 Serotypes), MAID (11/18/2024 3:20 PM EDT) Serotype 1 (1) <0.3 [facility], Serotype 2 (2) <0.3 [facility], Serotype 3 (3) <0.3 [facility], Strep pneumo Type 4 <0.3 [facility], Serotype 5 (5) <0.3 [facility], Serotype 8 (8) <0.3 [facility], Serotype 9 (9N) <0.3 [facility], Serotype 12 (12F) <0.3 [facility], Serotype 14 (14) <0.[address] [facility], Serotype 17 (17F) <0.3 [facility], Serotype 19 (19F) <0.3 [facility], Serotype 20 (20) 1.[address] [facility], Serotype 22 (22F) <0.3 [facility], Serotype 23 (23F) <0.3 [facility], Pneumo IgG Type 26 (6B) 1.3 [facility], Serotype 34 (10A) <0.3 [facility], Serotype 43 (11A) <0.3 [facility], Serotype 51 (7F) 0.[address] [facility], Serotype 54 (15B) <0.3 [facility], Strep pneumo Type 56 <0.3 [facility], Serotype 57 (19A) <0.3 [facility], Serotype 68 (9V) <0.[address] [facility], Serotype 70 (33F) <0.3 [facility], Comment: Serologic correlates of protection against pneumococcal disease have not been rigorously established for all patient populations. Published data and expert consensus (including WHO) suggest protection from invasive disease usually occurs at levels >or =0.3-0.50 mcg/mL for healthy children receiving pneumococcal conjugate vaccines. Higher titers may be necessary to protect from non-invasive infection (e.g., pneumonia, otitis, sinusitis). Expert opinion suggests that a cut-off of >= 1.3 mcg/mL may be a more relevant value to assess antibody responses after pneumococcal polysaccharide vaccines or for immunocompromised patients. In addition to antibody quantity, protection also depends on antibody avidity and opsonophagocytic activity. Some experts consider that post-vaccination (4-6 weeks) IgG seroconversion and/or 2- to 4-fold rise in IgG titers for >50% to 70% of vaccine serotypes demonstrates a normal post-vaccine serologic response. Persons with high initial serotype-specific titers may have less robust responses. [email or web address] uses a multi-analyte immunodetection (MAID) method. The method employs the [employer] flow cytometric system which measures multiple analytes simultaneously. The FDA standard reference serum 89-S is used as the calibration standard. Results are reported in mcg/mL. This assay detects all of the 23 of the serotypes in the 23-valent polysaccharide vaccine and 12 of the 13 serotypes in the 13-valent conjugate vaccine. This test was developed and its analytical performance characteristics have been determined by [email or web address]. It has not been cleared or approved by FDA. This assay has been validated pursuant to the CLIA regulations and used for clinical purposes. For additional information, please refer to http://education.[employer] Earth.[employer]/faq/GWH886 (This link is being provided for informational/ educational purposes only.) 11/18/2024 3:20 PM EDT 11/18/2024 3:22 PM EDT us Po Regalado MD LAB BLOOD ORDERABLES Final Resul t [facility], [address] [place] [address] * Neutrophil Function, Oxidative Burst (11/18/2024 3:20 PM EDT) Oxidation Positive Neutrophils 93 % [facility] [employer] [facility], Comment: Results reviewed and interpreted by Ahmet Gagnon M.D. 24 Hours: > OR = 93% 48 Hours: > OR = 83% 72 Hours: > OR = 82% This assay measures the capability of neutrophils (PMN) to undergo oxidative metabolism to produce superoxide anion and hydrogen peroxide, as detected by oxidation of dihydrorhodamine (DHR). Patients with Chronic Granulomatous Disease (CGD) are unable to oxidize DHR due to defects in oxidative metabolism. The proportion of neutrophils with intact oxidative capacity slowly decreases as the specimen age (hours post-collection) increases. It is thus important that the reference range value appropriate for the specimen age be utilized when assessing the reported results. This test was developed and its analytical performance characteristics have been determined by [email or web address]. It has not been cleared or approved by the FDA. This assay has been validated pursuant to the CLIA regulations and is used for clinical purposes. Specimen Age 72 HRS [facility] [employer] [facility], Blood Blood specimen / Unknown 11/18/2024 3:20 PM EDT 11/18/2024 3:22 PM EDT us Po Regalado MD LAB BLOOD ORDERABLES Final Resul t Performing Organization Address City/[facility]/ZIP Co de Phone Number [facility], [address] [place] [address] * ANCA Screen, Reflex Titer (11/18/2024 3:20 PM EDT) [facility] ANCA Screen NEGATIVE NEGATIVE [facility] [employer] Comment: ANCA screen uses indirect immunofluorescence to detect antibodies to neutrophil cytoplasmic antigens. A positive screen reflexes to titer and pattern. Patterns include cytoplasmic (c-ANCA) and perinuclear (p-ANCA) both of which are associated with vasculitis, and atypical p-ANCA which is associated with inflammatory bowel disease and other disorders. Blood Blood specimen / Unknown 11/18/2024 3:20 PM EDT 11/18/2024 3:22 PM EDT Po Regalado MD LAB BLOOD ORDERABLES Final Resul t Performing Organization Address [facility]/ZIP Co de Phone Number [employer] [address] [place] [phone] * (ABNORMAL) Lymphocyte Subsets (11/18/2024 3:20 PM EDT) [facility] % CD3 (Mature T Cells) 62 57 - 85 % [facility] [place] Absolute CD3+ Cells 669(L) 840 - 3,060 cells/uL [facility] CD4+ T Cells (%) 39 30 - 61 % [facility] CD4+ T Cells (Absolute) 420(L) 490 - 1,740 cells/uL [facility] CD8+ T Cells (%) 24 12 - 42 % [facility] CD8+ T Cells (Absolute) 258 180 - 1,170 cells/uL [facility] CD4:CD8 Ratio 1.63 0.86 - 5.00 [facility] %CD16+CD56 (Natural Killer Cells) 29(H) 4 - 25 % [facility] Absolute NK Cells (CD16+CD56+cells ) 309 70 - 760 cells/uL [facility] %CD19 (B Cells) 9 6 - 29 % [facility] Absolute CD19+ Cells 99(L) 110 - 660 cells/uL [facility] Absolute Lymphocytes 1,084 850 - 3,900 cells/uL [facility] Blood Blood specimen / Unknown 11/18/2024 3:20 PM EDT 11/18/2024 3:22 PM EDT Po Regalado MD LAB BLOOD ORDERABLES Final Resul t [facility] [employer] [address] [place] [address] * DIPHTHERIA ANTITOXOID ANTIBODY (11/18/2024 3:20 PM EDT) [facility] Diphtheria Antitoxoid Antibody 0.38 IU/mL [facility] Comment: Reference Range: 0.10 IU/mL or greater Interpretive Criteria: <0.10 IU/mL Nonprotective Antibody Level > Or = 0.10 IU/mL Protective Antibody Level Antibody levels >= 0.10 IU/mL are considered protective. After a primary series of three properly spaced diphtheria toxoid doses in adults or four doses in infants, a protective level of antitoxin (defined as > or = 0.10 IU of antitoxin/mL) is reached in more than 95% of immunized persons. This test was developed and its analytical performance characteristics have been determined by [email or web address] [place]. It has not been cleared or approved by the U.S. Food and Drug Administration. This assay has been validated pursuant to the CLIA regulations and is used for clinical purposes. Blood Blood specimen / Unknown 11/18/2024 3:20 PM EDT 11/18/2024 3:22 PM EDT us Po Regalado MD LAB BLOOD ORDERABLES Final Resul t [employer] [address] [place] [address] * (ABNORMAL) Complete Blood Count, with Differential (11/18/2024 3:20 PM EDT) Pathologist [facility] White Blood Cell Count 10.7 3.8 - 10.8 Thousand/ uL [facility] Red Blood Cell Count 4.82 4.20 - 5.80 Million/u L [facility] [employer] Hemoglobin 14.0 13.2 - 17.1 g/dL [facility] [employer] Hematocrit 42.3 38.5 - 50.0 % [facility] [employer] MCV 87.8 80.0 - 100.0 fL [facility] [employer] MCH 29.0 27.0 - 33.0 pg [facility] [employer] MCHC 33.1 32.0 - 36.0 g/dL [facility] [employer] Comment: For adults, a slight decrease in the calculated MCHC value (in the range of 30 to 32 g/dL) is most likely not clinically significant; however, it should be interpreted with caution in correlation with other red cell parameters and the patient's clinical condition. RDW 12.6 11.0 - 15.0 % [facility] [employer] Platelet Count 226 140 - 400 Thousand/ uL [facility] [email or web address] MPV 9.4 7.5 - 12.5 fL [facility] [employer] Abs Neutrophils Auto 8,635(H) 1,500 - 7,800 cells/uL [facility] [employer] Abs Lymphocytes Auto 1,124 850 - 3,900 cells/uL [facility] [employer] [facility] Abs Monocytes Auto 877 200 - 950 cells/uL [facility] [employer] Abs Eosinophils Auto 21 15 - 500 cells/uL [facility] [employer] Abs Basophils Auto 43 0 - 200 cells/uL [facility] [employer] Neutrophils Auto 80.7 % [facility] Lymphocytes Auto 10.5 % [facility] Monocytes Auto 8.2 % [facility] Eosinophils Auto 0.2 % [facility] Basophils Auto 0.4 % [facility] Blood Blood specimen / Unknown 11/18/2024 3:20 PM EDT 11/18/2024 3:22 PM EDT Po Regalado MD LAB BLOOD ORDERABLES Final Resul t Performing Organization Address [facility]/ZIP Co de Phone Number [facility] [address] [place] [phone] * (ABNORMAL) Haemophilus Influenza Type B Ab, IgG (11/18/2024 3:20 PM EDT) H. influenza Type B Antibody 0.61(L) >=1.00 mcg/mL [email or web address] [place] Comment: INTERPRETIVE CRITERIA: <0.15 mcg/mL: Nonprotective Antibody Level 0.15-0.99 mcg/mL: Indeterminate for protective antibody > or = 1.00 mcg/mL: Protective Antibody Level IgG antibody to polyribosylribitol phosphate (PRP), the capsular polysaccharide of Haemophilus influenzae type b, is measured in micrograms/mL (mcg/mL), based on correlations with a reference Tc radioimmuno- precipitation assay (DONELL). The exact level of antibody needed for protection from infection has not been clarified; values ranging from 0.15 mcg/mL to 1.00 mcg/mL have been reported. A four-fold increase in the PRP IgG antibody level between pre-vaccination and post-vaccination sera is considered evidence of effective immunization. Blood Blood specimen / Unknown 11/18/2024 3:20 PM EDT 11/18/2024 3:22 PM EDT Po Regalado MD LAB BLOOD ORDERABLES Final Resul t Performing Organization Address [facility]/ZIP Co de Phone Number [employer] [place] [address] [place] * IMMUNOGLOBULINS, QUANTITATIVE (GABY) (11/18/2024 3:20 PM EDT) Immunoglobulin A (IgA) 166 47 - 310 mg/dL [facility] Immunoglobulin G (IgG) 1,116 600 - 1,640 mg/dL [facility] Immunoglobulin M (IgM) 114 50 - 300 mg/dL [facility] Blood Blood specimen / Unknown 11/18/2024 3:20 PM EDT 11/18/2024 3:22 PM EDT Po Regalado MD LAB BLOOD ORDERABLES Final Resul t [employer] [address] [phone] * (ABNORMAL) Complement, Total (CH50) (11/18/2024 3:20 PM EDT) Pathologist [facility] Complement, Total (Ch50) >60(H) 31 - 60 U/mL [facility] Blood Blood specimen / Unknown 11/18/2024 3:20 PM EDT 11/18/2024 3:22 PM EDT Po Regalado MD LAB BLOOD ORDERABLES Final Resul t [facility] [email or web address] [facility] [address] [facility] [place] [place] * Culture, Aerobic and Anaerobic W/ Gram Stain (11/16/2024 3:41 PM EDT) Culture [facility] Comment: CULTURE, ANAEROBIC BACTERIA W/GRAM STAIN Micro Number: [id number] Test Status: Final Specimen Source: Throat Specimen Quality: Inadequate Gram Stain: Test not performed. Source is not acceptable for test requested. Result: Test not performed. Source is not acceptable for test requested. Aerobic Bacterial Culture [facility] Comment: CULTURE, AEROBIC BACTERIA Micro Number: [id number] Test Status: Final Specimen Source: Throat Specimen Quality: Adequate Result: Test not performed. Source is not acceptable for test requested. 11/16/2024 3:41 PM EDT 11/17/2024 11:28 AM EDT Sandeep Amos MD LAB AMB MICRO ORDERABLES Final Result Performing Organization Address [facility] de Phone Number [employer] [address] [place] [phone] * (ABNORMAL) Throat Culture (Group A, C and G Strep) (11/16/2024 3:41 PM EDT) Throat Culture SEE NOTE(A) [facility] Comment: CULTURE, THROAT Micro Number: [id number] Test Status: Final Specimen Source: Throat Specimen Quality: Adequate Result: Heavy growth of Group C Streptococcus Beta-hemolytic streptococci are predictably susceptible to Penicillin and other beta-lactams. Susceptibility testing not routinely performed. Please contact the laboratory within 3 days if susceptibility testing is desired. COMMENT: Normal oropharyngeal ana also present. 11/16/2024 3:41 PM EDT 11/17/2024 11:28 AM EDT Sandeep Amos MD LAB AMB MICRO ORDERABLES Final Result Performing Organization Address [facility] de Phone Number [employer] [address] [place] [phone] from Last 3 Months Insurance [facility] OUT STATE - HMO BLUE CROSS OUT OF STATE - [facility] BLUE CROSS OUT OF [facility] Care Teams Board Mixer Tender Relationship Specialty Start Date End Date Kathleen Hemphill DO [address] [place] [address] PCP - General Family Medicine 10/19/24
--- OUTSIDE RECORDS SUMMARY | 2024-11-30 18:04 | XMS_ITS | Encounter Summary ---
[facility] Organization [facility] Address [address] [place] [address] Care Team Providers Care Ice Rink Attendant Name Role Phone Nicole Mccauley MD Primary Care Provider [phone] Pcp, Kristen SILVERMAN Primary Care Provider Unavailabl e Reason for Referral * Physical Therapy (Routine) - Closed Specialty Diagnoses / Procedures Referred By Contac t Referred To Contact Physical Therapy Diagnoses Cervical pain Other migraine without status migrainosus, not intractable Janice Nguyen DO [address] [facility] [place] [address] Phone: tel: fax: [facility] Department of Physical Therapy [address] [place] [address] Phone: tel: fax: Referral ID Status Reason Start Date Expiration Date V isits Requested Visits Authorized [id number] Closed Specialty Services Required 05/29/2023 07/02/2024 20 20 Encounter Details Date Type Department Care Team (Late st Contact Info) Description 05/29/2023 Orders Only [facility] Department of Internal Medicine [address] [place] [address] Pooja Newell MD Cervical pain (Primary Dx); Other migraine without [...] documented in this encounter Additional Health Concerns Infection Onset Date Last Indicated Resolved Time (Rule out) Influenza 10/09/2024 10/09/2024 025 2:42 AM EDT (Rule out) RSV 10/09/2024 10/09/2024 10/09/2024 2: 42 AM EDT (Rule out) COVID-19 10/09/2024 10/09/2024 10/10/19 25 2:42 AM EDT Assessment Noted Time PHQ-9 Depression Total Score: 2 12/27/19 23 2:36 PM EDT documented as of this encounter Care Teams Ice Rink Attendant Relationship Specialty Start Date End Date Nicole Mccauley MD [address] [place] [address] PCP - General Internal Medicine 09/13/24 10/06/24 Kristen Horta MD [address] [place] [address] PCP - General Internal Medicine 10/07/24 documented as of this encounter
== END 2024-11-30 14:40 | disposition home or self-care (01) ==
LOC: HO.HSMS 14:15
PROVIDERS: PCP Pediatrics; Visit Provider Psychiatry & Neurology Neurology
DX: G43.719 Chronic migraine without aura, intractable, without status migrainosus (principal)
CPT/HCPCS: 64615

== ENCOUNTER → 2024-11-30 14:14 | Outpatient (BNVA) | payer BC, SELFPAY | PROVIDERS: PCP Pediatrics; Visit Provider Psychiatry & Neurology Neurology | DX: G43.719 Chronic migraine without aura, intractable, without status migrainosus (principal) | CPT/HCPCS: 64615; 99211; J0585 ==

== ENCOUNTER 2025-03-01 15:33 | Outpatient (AMB) | payer BC, SELFPAY ==
[2025-03-01 15:35] VITALS: BP 118/64; PULSE 66; O2SAT 98; BMI 21.7
--- NOTE | 2025-03-01 15:35 | A.OFFVIS_ITS ---
Vital Signs 03/01/25 15:35 Height 5 ft 10 in Weight 151 lb BMI 21.7 BP 118/64 Blood Pressure Location Rt brachial Position Sitting Pulse 66 Pulse Source Pulse Oximeter Pulse Oximetry (%) 98 Oxygen Delivery Method Room Air Intake Visit Reasons: Botox Intake Note: Botox 200 State Archivist Required: No Accompanied by: Self / Same As Patient Allergies venlafaxine Allergy (Severe, Verified 03/01/25 15:35) Anaphylaxis Medication List - Last Reconciled 03/01/25 by Margo Ritchie MD hydroxyzine HCl 25 mg PO BEDTIME mirtazapine 30 mg PO BEDTIME onabotulinumtoxinA (Botox) to be injected to scalp and neck muscles by physician 200units; pantoprazole 20 mg PO DAILY ubrogepant (Ubrelvy) 100 mg PO .PRN PRN HPI Comments Details: ? 24y/o male comes for treatment of migraines with botox. ??? Most frequent reported adverse reactions following injection of botox for chronic migraine include neck pain (9%), headache(5%), eyelid ptosis(4%), migraine(4%), muscular weakness(4%), musculuskeletal stiffness(4%), bronchitis(3%), injection site pain (3%), musculoskeletal pain(3%), myalgia(3%), facial paresis(2%), HTN(2%) and muscle spasms(2%) were discussed in detail. ??? Botulinum toxin typeA 200units Lot no [id number] expiration May 2027 was diluted with 4 cc of normal saline . How many migraine days prior to botox- 20-30days a month How long do the migraines last- 4-24 hrs Intensity of migraine-09/23 ER visits related to migraine -none Effectiveness of botox from last two treatment How many migraine days since receiving treatment: 0-2/month Change? in intensity of migraine? decreased Change in frequency of migraine?decreased Change in use of acute medication for migraine?decreased Change in quality of life?improved ER visits related to migraine?none Have at least three months elapsed since last treatment (Last botox date - frequency of injections) 3 mths ??? Muscles injected- ??? Frontalis 4 sites- 5units each ? Population Health Coach- 2 sites 5 units each ??? Temporalis- 8 sites 5units each ??? Cervical paraspinals- 4 sites 5 units each ??? Trapezius- 6 sites- 10 units each Occipitalis 10 units each Masseter 20 units each ? Total use- 200units ??? PFSH Medical History Chronic migraine without aura Hyperreflexia Numbness and tingling Cervicalgia Depression Migraine with aura, intractable, without status migrainosus Surgical History S/P cubital tunnel release Family History Brother Cluster headache Speech apraxia Autism Social History Alcohol intake: current Patient Tobacco Use Status: Never used Tobacco Substance Use Type: Marijuana Physical Exam Vital Signs: Last Vital Signs Pulse 66 03/01/25 15:35 BP 118/64 03/01/25 15:35 Pulse Ox 98 03/01/25 15:35 Oxygen Delivery Method Room Air 03/01/25 15:35 BMI result Body Mass Index 21.7 Const General: cooperative, healthy appearing and comfortable Nutritional Appearance: average body habitus Orientation/consciousness: patient oriented x3 Limitations: no limitations HEENT Head: Yes normal to inspection, Yes normocephalic and Yes atraumatic Face and sinus: Yes normal facial exam Neck Other: tightness or tenderness in lateral cervical muscles Neuro General: patient oriented x3, tone normal, moves all extremities and no focal motor deficits Coordination: [id number] test normal Office Procedures Botulinum toxin Injection 55151 - Migraine Procedure code (CPT) selection complete Office Meds onabotulinumtoxinA 200 unit solution for injection Performing Provider: Margo Ritchie MD Performing Location: [facility] Administered by: Margo Ritchie MD on 03/01/25 15:55 Dose Route Admin Location Dispensed Lot Number Expiration Date [facility] E Learning Developer 200 unit subcut 200 units [id number] ALLERGAN /BOTOX Total Dispensed Waste 200 units 0 % Comments: see HPI Assessment & Plan Assessment & Plan (1) Chronic migraine without aura: Code(s): G43.709 - Chronic migraine without aura, not intractable, without status migrainosus Category: Medical Qualifiers: Status migrainosus presence: without status migrainosus Intractability: intractable Qualified Code(s): G43.719 - Chronic migraine without aura, intractable, without status migrainosus Plan Patient tolerated the procedure well He will call with any side effects He could not tolerate triptans Continue ubrelvy 100mg as needed for breakthrough migraines Orders: Orders AMB Botulinum toxin Injection Today G43.719 - Chronic migraine without aura, intractable, without status migrainosus Coding Level of Care Code Est Pt Level 1 (82775) Diagnoses Intractable chronic migraine without aura and without status migrainosus G43.719 Status migrainosus presence: without status migrainosus Intractability: intractable CPT Codes Botox Injection - Botox 3: 54240 - Migraine ([id number])
--- OUTSIDE RECORDS SUMMARY | 2025-03-01 19:43 | XMS_ITS | Encounter Summary ---
Author Organization [facility] Address [address] [place] [address] Care Team Providers Care Research Worker Encyclopedia Name Role Phone Nicole Mccauley MD Primary Care Provider [phone] Pcp, Kristen SILVERMAN Primary Care Provider Unavailabl e Reason for Referral * Physical Therapy (Routine) - Closed Specialty Diagnoses / Procedures Referred By Contac t Referred To Contact Physical Therapy Diagnoses Cervical pain Other migraine without status migrainosus, not intractable Janice Nguyen DO [address] [facility] [address] Phone: tel: fax: [facility] Department of Physical Therapy [address] [place] [address] Phone: tel: fax: Referral ID Status Reason Start Date Expiration Date V isits Requested Visits Authorized [id number] Closed Specialty Services Required 05/29/2023 07/02/2024 20 20 Encounter Details Date Type Department Care Team (Late st Contact Info) Description 05/29/2023 Orders Only [facility] Department of Internal Medicine [address] [place] [address] Pooja Newell MD Cervical pain (Primary Dx); [...] documented as of this encounter Care Teams Research Worker Encyclopedia Relationship Specialty Start Date End Date Nicole Mccauley MD [address] [place] [address] PCP - General Internal Medicine 09/13/24 10/06/24 Kristen Horta MD [address] [place] [address] PCP - General Internal Medicine 10/07/24 documented as of this encounter
--- OUTSIDE RECORDS SUMMARY | 2025-03-01 19:43 | XMS_ITS | Clinical Summary ---
Author Organization [address] Address [address] [place] [phone] Phone Care Team Providers Care Brass Sorter Name Role Phone Unavailable Primary Care Provider [...] vaccine 10/15/2024 Covid-19 vaccine series (1 - 2024- season) 2024 RSV Immunization (1 - 1-dose [...] to complete this topic Insurance [place] Subscriber Plan / Payer (Ef fective 2018-Present) Name:Kyler Ibarra Relation to Subscriber:Self Name:Kyler Ibarra Payer ID:[id number] Group ID:Not on file Type:Not on file Address: [address] [place] Subscriber Plan / Payer (Ef fective 2018-Present) Name:Kyler Ibarra Relation to Subscriber:Self Name:Kyler Ibarra Payer ID:[id number] Group ID:Not on file Type:Not on file Address: [address] [place] Member Subscriber Plan / Payer (Ef fective 2018-Present) Name:Kyler Ibarra Relation to Subscriber:Self Name:Kyler Ibarra Payer ID:[id number] Group ID:Not on file Type:Not on file Address: [address]
--- OUTSIDE RECORDS SUMMARY | 2025-03-01 19:43 | XMS_ITS | Encounter Summary ---
Author Organization [facility] Address [address] [place] [address] [place] [address] Phone Care Team Providers Care Director Of Industrial Relations Name Role Phone Mateo Alfred MD Primary Care Provider [phone] Mateo Alfred MD Unavailable [phone] Mateo Alfred MD Primary Care Provider [phone] Encounter Details Date Type Department Care Team (Late st Contact Info) Description 01/30/2022 Procedure Pass [address] [place] [address] Social History Tobacco Use Types Packs/Day Years [...] on filedocumented in this encounter Care Teams Director Of Industrial Relations Relationship Specialty Start Date End Date Mateo [facility] [address] [place] [address] PCP - General Internal Medicine 12/22/21 08/09/24 Mateo Alfred MD [address] [place] [address], [address] [place] [address] [email or web address] PCP - General Internal Medicine 08/13/24 Mateo Alfred MD [address] [place] [address], [address] [place] [address] [email or web address] Insurance Assigned Provider 07/20/22 01/25/23 documented as of this encounter Additional Source Comments The information contained in this document represents components of the legal health record. It is not the complete legal health record.[facility]
--- OUTSIDE RECORDS SUMMARY | 2025-03-01 19:43 | XMS_ITS | Clinical Summary ---
Author Organization [facility] Address [facility] [address] [place] [address] Phone Care Team Providers Care Golf Sales Associate Name Role Phone Mateo Alfred MD Primary Care Provider [phone] Allergies Active Allergy Reactions Criticality Noted Date [...] VACCINE (#1) 2024 COVID-19 VACCINE (1 - 2024-2 6 season) 2024 HEPATITIS A VACCINES Aged Out [...] topic Medical Devices Not on file Insurance [place] [employer] [place] PPO [place] PPO [place] P[place] Advance Directives For more information, please contact: [phone] (9AM - 5PM [facility], Friday-Friday) * Full Code (Latest Code Status on File) Date Activated Date Inactivated Comments 05/14/2022 6:10 AM Question Answer Comments Code Status Confirmed With: Patient Care Teams Golf Sales Associate Relationship Specialty Start Date End Date Mateo Alfred MD [address] [place] [address], [address] [place] [address] [email or web address] PCP - General Internal Medicine 08/13/24 Additional Source Comments The information contained in this document represents components of the legal health record. It is not the complete legal health record.[facility]
--- OUTSIDE RECORDS SUMMARY | 2025-03-01 19:43 | XMS_ITS | Encounter Summary ---
Author Organization [facility] Address [address] [place] [address] Care Team Providers Care Groundskeeper Name Role Phone Pcp, No Primary Care Provider Unavailabl Kathleen Jaimes DO Primary Care Provider Sandeep Amos MD Unavailable [phone] Po Regalado MD Unavailable Encounter Details Date Type Department Care Team (Late st Contact Info) Description 10/05/2024 Scanned Document [address] [place] [phone] Provider, Generic Social History Tobacco Use Types Packs/Day Years Used Date Smoking Tobacco: Never Assessed Sex and Gender Information Value Date Recorded Sex Assigned at Male 02/16/2025 7:02 PM EST Legal Sex Male 6:02 PM EDT Gender Identity Male 02/16/2025 7:02 PM EST Sexual Orientation Heterosexual (straight) 02/16 7:02 PM EST documented as of this encounter Plan of Treatment Upcoming Encounters Date Type Department Care Team (Late st Contact Info) Description 10/21/2025 2:00 PM EDT Office Visit [address] [phone] Kathleen Hemphill DO [address] [address] documented as of this encounter Visit Diagnoses Not on filedocumented in this encounter Care Teams Groundskeeper Relationship Specialty Start Date End Date Pcp, Kristen PCP - General General Medicine 10/05/24 10/18/24 Kathleen Hemphill DO [address] [facility] [address] [place] [address] PCP - General Family Medicine 10/19/24 Sandeep Amos MD [address] [place] [address] Physician Otolaryngology 02/22/25 Po Regalado MD [address] [facility] [address] [place] [address] Consulting Provider Allergy 02/22/25 documented as of this encounter
--- OUTSIDE RECORDS SUMMARY | 2025-03-01 19:43 | XMS_ITS | Clinical Summary ---
Author Organization [facility] Address [address] [place] [address] Care Team Providers Care Blind Lacer Name Role Phone Pcp, No MD Primary [...] this on the abdomen. Recent travel to [facility] about 5 weeks ago. No international [...] benefit from follow-up at transition care at [facility] to follow-up on above labs. - May [...] this on the abdomen. Recent travel to [facility] about 5 weeks ago. No international [...] benefit from follow-up at transition care at [facility] to follow-up on above labs. - May [...] this on the abdomen. Recent travel to [facility] about 5 weeks ago. No international [...] benefit from follow-up at transition care at [facility] to follow-up on above labs. - May [...] large stool burden in this area. - [place] screening as above -Bowel regimen as needed Assessment & Plan (10/09/2024 5:39 AM EDT): Patient reports some abdominal pain under the left ribs. He states that he did have mono previously, but never had formal positive test. CXR shows large stool burden in this area. - [place] screening as above Drug rash 10/09/2024 Assessment [...] this on the abdomen. Recent travel to [facility] about 5 weeks ago. No international [...] benefit from follow-up at transition care at [facility] to follow-up on above labs. - May [...] pur e alcohol) 2-6 per month recently [facility] [employer] Answer Date Recorded In the past 12 months has e [employer], gas, oil, or water [employer] threatened to shut off services in your [...] any time in the past 12 m [facility], were you homeless or living in a fdc (including now)? No 10/09/2024 Sex and Gender [...] 3-dose series) 2018 COVID-19 Vaccine (1 - 2024-2 6 season) 2024 Influenza Vaccine (#1) 2024 Zoster [...] age to complete this topic Pneumococcal Vaccine: At-Ris k and Pediatric Patients (0 to 49 Years) Aged Out No longer eligible b ased on patient's age to complete this topic Procedures Procedure Name Priority Date/Time Associated Diagnosis Comments HIV COMBO ANTIGEN/ANTIBODY Add-On 10/09/2024 12:35 AM EDT from Last 3 Months or Most Recently Relevant to Health Maintenance Results * HIV combo antigen/antibody (10/09/2024 12:35 AM EDT) HIV Combo AB/AG Negative Negative 4:51 AM EDT [facility] Comment: All HIV-negative individuals are eligible for HIV PrEP (Pre-Exposure Prophylaxis), a safe and effective medication to prevent HIV infection. Talk to your [facility] Provider about PrEP, or contact the [facility] PrEP Navigator Mabel Mckeon at [phone]. Blood Venous blood specimen / Unknown Venipuncture / Unknown 10/09/2024 12:35 AM EDT 10/09/2024 12:44 AM EDT Narrative [facility] - 10/09/2024 4:51 AM EDT This test is a 4th generation HIV Antigen-Antibody Combination assay, using a chemiluminescent microparticle immunoassay, for the simultaneous qualitative detection of human immuno- deficiency virus (HIV) p24 antigen and antibodies to HIV type 1 (HIV-1) and/or HIV type 2 (HIV-2) in human serum or plasma. The Like[employer]fm HIV Ag/Ab Combo assay is intended to [...] BLOOD ORDERABLES NO STA T Final Result [facility] [address] [place] [address], from Last 3 Months or Most Recently Relevant to Health Maintenance Insurance MEDICAID [place] ANTHEM - OUT OF STATE Advance Directives For more information, please contact: [phone] * Full Code (Latest Code Status on File) Date Activated Date Inactivated Comments 10/09/2024 4:15 AM 10/10/2024 10:59 PM * Full Code Date Activated Date Inactivated Comments 10/09/2024 2:51 AM 10/09/2024 4:15 AM Care Teams Blind Lacer Relationship Specialty Start Date End Date Kristen Horta MD [address] [place] [address] PCP - General Internal Medicine 10/07/24
--- OUTSIDE RECORDS SUMMARY | 2025-03-01 19:43 | XMS_ITS | Encounter Summary ---
Author Organization [facility] Address [address] [place] [phone] Phone Care Team Providers Care Supervisor Wound Name Role Phone Mateo Alfred MD Primary Care Provider [phone] Mateo Alfred MD Unavailable [phone] Mateo Alfred MD Primary Care Provider [phone] Reason for Referral * Physical Therapy (Routine) - Closed Specialty Diagnoses / Procedures Referred By Bob dudley Referred To Contact Physical Therapy Diagnoses Encounter for rehabilitation Mateo Alfred MD Phone: tel: fax: [email or web address] [address] [address] Phone: tel: Referral ID Status Reason Start Date Expiration Date Visits Re quested Visits Authorized [id number] Closed 06/07/2022 03/16/2023 26 26 Encounter Details Date Type Department Care Team (Latest Contact Info) Description 04/26/2022 Transcribe Orders [facility] [address] [place] [address] Margo Ritchie MD [address] [place] [address] Encounter for rehabilitation (Primary Dx) Social History [...] high school, GED, job training, learning the [place] language, technical skills, or developing parenting skills)? [...] Date/Time Associated Diagnosis Comments AMB REFERRAL TO [facility] PHYSICAL THERAPY Routine 06/07/2022 5:16 PM EDT Encounter for rehabilitation documented in this encounter Results * Ambulatory referral to [facility] Physical Therapy (06/07/2022 5:16 PM EDT) Other us Margo LEVIN [facility] REFERRALS Final Result documented in this encounter Visit Diagnoses Diagnosis Encounter for rehabilitation- Primary documented in this encounter Additional Health Concerns Assessment Noted Time PHQ-9 Depression Total Score: 12 023 12:59 PM EST PHQ-2 Depression Total Score: 4 04/25/19 23 12:59 PM EST documented as of this encounter Care Teams Supervisor Wound Relationship Specialty Start Date End Date Mateo Alferd MD [address] [facility], [address] [place] [address] PCP - General Internal Medicine 12/22/21 08/09/24 Mateo Alfred MD [address] [facility], [address] [place] [address] PCP - General Internal Medicine 08/13/24 Mateo Alfred MD [address] [facility], [address] [place] [address] Insurance Assigned Provider 07/20/22 01/25/23 documented as of this encounter Additional Source Comments The information contained in this document represents components of the legal health record. It is not the complete legal health record.[facility]
--- OUTSIDE RECORDS SUMMARY | 2025-03-01 19:43 | XMS_ITS | Clinical Summary ---
Author Organization [facility] Address [address] [place] [address] Care Team Providers Care Sound Effects Technician Name Role Phone Kathleen Hemphill Primary Care Provider [phone] Sandeep Amos MD Unavailable [phone] Po Regalado MD Unavailable Allergies Active Allergy Reactions Criticality Noted Date Comments Apple Hives Medium 05/07/2022 Mouth swelling and itching Apricot Nausea Only Medium 10/09/2024 Ford Pepper Other (See Comments) Medium 10/09/2024 pain Jacques Swelling High 10/09/2024 Ethinyl Estradiol Cough Low 08/03/2018 Nectarine Nausea Only Medium 10/09/2024 Pollen Extract Fever Low 08/03/2018 Venlafaxine Anaphylaxis,Hives,It chi ng,Shortness Of Breath,Swelling High 03/26/2022 Medications mirtazapine (REMERON) 30 MG tablet Take 1 tablet (30 mg total) by mouth nightly. 5 Active hydrOXYzine HCl (ATARAX) 25 MG tablet TAKE 0.5 TO 1 TABLET BY MOUTH UP TO THREE TIMES DAILY NEEDED FOR SLEEP/ANXIET Y 5 Active acetaminophen (TYLENOL) 325 MG tablet Take 2 tablets (650 mg total) by mouth 4 times daily (every 6 hours) as needed. 5 Active PANTOprazole (PROTONIX) 40 MG EC tabletIndications :Subacute cough,Pharyngitis , unspecified etiology Take 1 tablet (40 mg total) by mouth 2 times a day. 180 tablet 5 026 Active fluticasone (FloNASE) 50 mcg/spray nasal sprayIndications: Recurrent sinusitis 1 spray into each nostril daily. 1 each 5 5 026 Active fluticasone (FloNASE) 50 mcg/spray nasal sprayIndications: Recurrent streptococcal tonsillitis,Recur rent sinusitis 1 spray into each nostril daily. 1 each 5 025 Discontinu ed(Therapy completed) levocetirizine (XYZAL) 5 MG tabletIndications :Recurrent streptococcal tonsillitis,Recur rent sinusitis Take 1 tablet (5 mg total) by mouth every evening. 90 tablet 5 025 Discontinu ed(Therapy completed) azithromycin (ZITHROMAX) 250 MG tabletIndications :Subacute cough,Pharyngitis , unspecified etiology Take 2 tablets by mouth on day 1 followed by 1 tablet by mouth daily on days 2 through 5. 6 tablet 5 025 Active Problems Problem Noted Date Diagnosed Date Recurrent infections 11/18/2024 Postnasal drip 12/31/2022 Encounters Date Type Department Care Team Description 02/22/2025 1:45 PM EST Office Visit [address] [address] Kathleen Hemphill DO Subacute cough (Primary Dx); Pharyngitis, unspecified etiology; Recurrent sinusitis 02/19/2025 6:35 PM EST Office Visit [facility] [address] [address] Mario Leiva MD Perez, Dorothy J, APRN Sore throat (Primary Dx) 02/19/2025 Scanned Document [facility] [address] [facility] [address] [place] [phone] Provider, Generic 12/28/2024 3:15 PM EDT Office Visit [facility] [place] [address] [place] [phone] Sandeep Amos MD Sore throat (Primary Dx) from Last 3 Months Immunizations Immunization Administration Dates Next Due Pneumococcal Conjugate 20-Valent 12/22/2024 Family History Medical History Relation Name Comments Autism Brother Relation Name Status Comments Brother Alive Father Alive Maternal Grandfather Other Maternal Grandmother Other Mother Alive Social History Tobacco Use Types Packs/Day Years Used Date Smoking Tobacco: Never Smokeless Tobacco: Never Tobacco Cessation:Counseling Given: Not Answered Alcohol Use Standard Drinks/Week Comments Yes 0 (1 standard drink = 0.6 oz pur e alcohol) [facility] Utilities Answer Date Recorded In the past 12 months has th e electric, gas, oil, or water [employer] threatened to shut off services in your home? No 10/18/2024 Social Connection and Isolation Panel Answer Date Recorded In a typical week, how many times do you talk on the phone with family, friends, or neighbors? More than three times a week 10/18/2024 Frequency of Social Gatherin gs with Friends and Family Not on file 10/18/2024 Attends [employer] Not on file 10/18 Active Member [...] PHQ-2 Answer Date Recorded PHQ-2 Total Score 3 02/22/2025 Hunger Vital Sign Answer Date Recorded Within [...] any time in the past 12 m [facility], were you homeless or living in a alf (including now)? No 10/18/2024 Physical Activity Answer [...] you have received? Professional school degree (e.g., MD, DDS, DVM, IMELDA) 10/18/2024 Sex and Gender Information Value Date Recorded Sex Assigned at Male 02/16/2025 7:02 PM EST Legal Sex Male 6:02 PM EDT Gender Identity Male 02/16/2025 7:02 PM EST Sexual Orientation Heterosexual (straight) 02/16 7:02 PM EST Last Filed Vital Signs Vital Sign Reading Time Taken Comments Blood Pressure 117/71 02/22/2025 1:47 PM EST Pulse 84 02/22/2025 1:47 PM EST Temperature 36.7 C (98.1 F) 02/22/2025 1:47 PM EST Respiratory Rate 16 02/22/2025 1:47 PM EST Oxygen Saturation 97% 02/22/2025 1:47 PM EST Inhaled Oxygen Concentration - - Weight 67.1 kg (148 lb) 02/22/2025 1:47 PM EST Height 177.8 cm (5' 10 ) 02/22/2025 1:47 PM EST Body Mass Index 21.24 02/22/2025 1:47 PM EST Plan of Treatment Upcoming Encounters Date Type Department Care Team (Late st Contact Info) Description 10/21/2025 2:00 PM EDT Office Visit [address] [phone] Kathleen Hemphill, DO [address] [facility] [address] [place] [address] Health Maintenance Due Date Last Done Comments Hepatitis C Virus Screening 1999 HPV Vaccines (1 - Male 3-dos e series) 2014 DTaP/Tdap/Td Vaccines (1 - Tdap) 2018 Hepatitis B Vaccines (1 of 3 - 19+ 3-dose series) 2018 Influenza Vaccine 10/15/2024 COVID-19 Vaccine (1 - 2024-2 6 season) 2024 Physical 10/20/2027 10/19/2024 HIV Screening Completed 10/09/2024, 10/09/2024, 12/23/2022 Pneumococcal Vaccine: Pediatric (0-5 Years) and At-Risk Patients (6 to 49 Years) Aged Out 12/22/2024 No longer eligible b ased on patient's age to complete this topic Procedures Procedure Name Priority Date/Time Associated Diagnosis Comments POCT RAPID STREP A Routine 02/19/2025 7: 18 PM EST Sore throat THROAT CULTURE (GROUP A, C AND G STREP) Routine 02/19/2025 7:18 PM EST Sore throat from Last 3 Months Results * Throat Culture (Group A, C and G Strep) (02/19/2025 7:18 PM EST) Throat Culture SEE NOTE [employer] Comment: CULTURE, THROAT Micro Number: [id number] Test Status: Final Specimen Source: Not given Specimen Quality: Adequate Result: No oropharyngeal pathogens recovered. 02/19/2025 7:18 PM EST 02/19/2025 11:51 PM EST us Loida Xiong APRN LAB AMB MICRO ORDERABLES Fi nal Result [employer] [address] [place] [id number] * POCT Rapid Strep A (02/19/2025 7:18 PM EST) Rapid Strep A Screen Negative Negative Lot Number [id number] Independent Driver Pass Pass Throat 02/19/2025 7:18 PM EST Loida Xiong CREATIVE ART THERAPIST POINT OF CARE TEST ORDERABL ES Final Result from Last 3 Months Insurance [employer] [facility] [place] [employer] [place] [facility] [employer] [facility] [place] [employer] [facility] Care Teams Sound Effects Technician Relationship Specialty Start Date End Date Kathleen Hemphill DO [address] [facility] [address] [place] [address] PCP - General Family Medicine 10/19/24 Sandeep Amos MD [address] [place] [address] Physician Otolaryngology 02/22/25 Po Regalado MD [address] [place] [address] Consulting Provider Allergy 02/22/25
--- OUTSIDE RECORDS SUMMARY | 2025-03-01 19:43 | XMS_ITS | Encounter Summary ---
Author Organization [facility] Address [address] [place] [phone] Phone Care Team Providers Care Recoater Name Role Phone Mateo Alfred MD Primary Care Provider [phone] Mateo Alfred MD Unavailable Mateo Alfred MD Primary Care Provider [phone] Encounter Details Date Type Department Care Team (Late st Contact Info) Description 05/14/2022 Procedure Pass OR Admitting Dept - Virtual Department [address] [place] [address] Social History Tobacco Use Types Packs/Day Years [...] high school, GED, job training, learning the Cypriot language, technical skills, or developing parenting skills)? [...] documented as of this encounter Care Teams Recoater Relationship Specialty Start Date End Date Mateo Alfred MD [address] [place] [address], [address] [place] [address] PCP - General Internal Medicine 12/22/21 08/09/24 Mateo Alfred MD [address] [place] [address], [address] [place] [address] [email or web address] PCP - General Internal Medicine 08/13/24 Mateo Alfrde MD [address] [facility], [address] [place] [address] [email or web address] Insurance Assigned Provider 07/20/22 01/25/23 documented as of this encounter Additional Source Comments The information contained in this document represents components of the legal health record. It is not the complete legal health record.[facility]
--- OUTSIDE RECORDS SUMMARY | 2025-03-01 19:43 | XMS_ITS | Encounter Summary ---
Author Organization [facility] Address [address] [place] [address] Care Team Providers Care Underwater Hunter Name Role Phone Kathleen Hemphill Primary Care Provider [phone] Sandeep Amos MD Unavailable [phone] Po Regalado MD Unavailable Encounter Details Date Type Department Care Team (Late st Contact Info) Description 02/19/2025 Scanned Document [address] [place] [phone] Provider, Generic Social History Tobacco Use Types Packs/Day Years Used Date Smoking Tobacco: Never Smokeless Tobacco: Never Alcohol Use Standard Drinks/Week Comments Yes 0 (1 standard drink = 0.6 oz pur e alcohol) [facility] Utilities Answer Date Recorded In the past 12 months has e electric, gas, oil, or water company [...] and Family Not on file 10/18/2024 Attends [employer] Not on file 10/18 Active Member [...] any time in the past 12 m [facility], were you homeless or living in a nursing home (including now)? No 10/18/2024 Physical Activity Answer [...] PM EST documented as of this encounter Functional Status * Question Answer Date of Assessment Author Feeling nervous, anxious, or on edge 2 02/22/2025 1:00 PM Nickie Cruz MA Not being able to stop or co ntrol worrying 1 02/22/2025 1:00 PM Nickie Cruz MA Worrying too much about diff erent things 1 02/22/2025 1:00 PM Nickie Cruz MA Trouble relaxing 1 02/22/2025 1:00 PM Nickie Zurita MA Being so restless that it is hard to sit still 1 02/22/2025 1:00 PM Nickie Cruz MA Becoming easily annoyed or irritable 1 02/22/2025 1:00 PM Nickie Cruz MA Feeling afraid as if somethi ng awful might happen 1 02/22/2025 1:00 PM Nickie Cruz MA * Over the past 2 weeks, how often have you been bothered by any of the following problems? Question Answer Date of Assessment Author Patient Health Questionnaire -2 Score 3 02/22/2025 1:00 PM Nickie Cruz MA * Question Answer Date of Assessment Author Patient Health Questionnaire -9 Score 10 02/22/2025 1:00 PM Nickie Cruz MA * Over the last 2 weeks, how often have you been bothered by any of the following problems? Question Answer Date of Assessment Author KELSI-7 Total Score 8 02/22/2025 1:00 PM Nickie Cruz MA * Question Answer Date of Assessment Author PHQ-2 Total Score 3 02/22/2025 1:00 PM Nickie Cruz MA Little interest or pleasure in doing things Several days 02/22/2025 1:00 PM Joselyn Cruz MA Feeling down, depressed, or hopeless More than half the days 02/22/2025 1:00 PM Nickie Cruz MA Trouble falling or staying asleep, or sleeping too much More than half the days 02/22/2025 1:00 PM Nickie Cruz MA Feeling tired or having little energy More than half the days 02/22/2025 1:00 PM Nickie Cruz MA Poor appetite or overeating Several days 02/22/2025 1:00 PM Nickie Cruz MA Feeling bad about yourself - or that you are a failure or have let yourself or your family down More than half the days 02/22/2025 1:00 PM Nickie Cruz MA Trouble concentrating on things, such as reading the newspaper or watching television Not at all 02/22/2025 1:00 PM Nickie Cruz MA Moving or speaking so slowly that other people could have noticed? Or the opposite - being so fidgety or restless that you have been moving around a lot more than usual. Not at all 02/22/2025 1:00 PM Nickie Cruz MA Thoughts that you would be better off or hurting yourself in some way Not at all 02/22/2025 1:00 PM Nickie Cruz MA How difficult have these problems made it for you to do your work, take care of things at home, or get along with other people? Somewhat difficult 02/22/2025 1:00 PM Nickie Cruz MA PHQ-9 Total Score 10 02/22/2025 1:00 PM Nickie Cruz MA documented as of this encounter Plan of Treatment Upcoming Encounters Date Type Department Care Team (Late st Contact Info) Description 10/21/2025 2:00 PM EDT Office Visit [address] [phone] Kathleen Hemphill DO [address] [place] [address] documented as of this encounter Visit Diagnoses Not on filedocumented in this encounter Care Teams Underwater Hunter Relationship Specialty Start Date End Date Kathleen Hemphill DO [address] [place] [address] PCP - General Family Medicine 10/19/24 Sandeep Amos MD [address] [place] [address] Physician Otolaryngology 02/22/25 Po Regalado MD [address] [address] Consulting Provider Allergy 02/22/25 documented as of this encounter
== END 2025-03-01 15:56 | disposition home or self-care (01) ==
LOC: HO.HSMS 15:34
PROVIDERS: PCP Pediatrics; Visit Provider Psychiatry & Neurology Neurology
DX: G43.719 Chronic migraine without aura, intractable, without status migrainosus (principal)
CPT/HCPCS: 64615; 99499

== ENCOUNTER → 2025-03-01 15:33 | Outpatient (BNVA) | payer BC, SELFPAY | PROVIDERS: PCP Pediatrics; Visit Provider Psychiatry & Neurology Neurology | DX: G43.719 Chronic migraine without aura, intractable, without status migrainosus (principal); G43.709 Chronic migraine without aura, not intractable, without status migrainosus | CPT/HCPCS: 64615; J0585 ==